=== PATIENT | male | born 1965 | race Caucasian/White ===

== ENCOUNTER 2016-09-08 14:58 | Emergency (ER) | payer MEDICARE ==
[2016-09-08] MEDS ORDERED: Sodium Chloride 0.9% 1000 ML 1,000 ML ONE ×3 (15:02→17:16)
[2016-09-08 15:05] LABS: A-aADO2 435; ALLEN TEST OK? YES; ARTERIAL BLD GAS O2 SATURATION 97.4 % (95-100); ARTERIAL BLOOD GAS BASE EXCESS -5.7 (-2.0-2.0); ARTERIAL BLOOD GAS FIO2 100 %; ARTERIAL BLOOD GAS PO2 233 mmHg (75-100); ARTERIAL BLOOD GAS pH 7.34 (7.35-7.45)
[2016-09-08] MEDS ORDERED: NARCAN 1 MG/ML ONE ×2 (15:07→15:10)
[2016-09-08] MEDS ORDERED: Sodium Chloride 0.9% 1000 ML 1,000 ML IV STA (15:09)
[2016-09-08] MEDS ORDERED: NARCAN 1 MG/ML IV ONE (15:09)
[2016-09-08 15:17] LABS: BASOPHIL % 0.2 % (0.0-0.4); Eosinophil % 0.5 % (0.00-5.0); Granulocytes % 83.3 % (36.0-66.0); Lymphocytes % 7.5 % (24.0-44.0); Mean Cell Volume 86.1 fl (78-100); Mean Corpuscular Hemoglobin 29.1 pg (26-32); Mean Platelet Volume 9.8 fl (6-9.5); Monocytes % 8.5 % (0.0-12.0); Platelet Count 215 K/mm3 (150-450); Red Cell Distribution Width 13.7 % (11.5-14.0); White Blood Count 15.8 K/mm3 (4.0-10.5)
[2016-09-08] MEDS ORDERED: Amidate 20 MG/10 ML IV ONE ×2 (15:18→16:00)
[2016-09-08] MEDS ORDERED: Zemuron 100 MG/10 ML IV ONE (15:18)
[2016-09-08] MEDS ORDERED: SUBLIMAZE 100 MCG/2 ML ONE ×2 (15:26→19:33)
[2016-09-08] MEDS ORDERED: SODIUM CHLORIDE IV PRN (15:26)
[2016-09-08] MEDS ORDERED: MIDAZOLAM IV PRN (15:26)
--- NOTE | 2016-09-08 15:42 | XRAY ---
Indication: Unresponsive. Comparison: May 30, 2012. Portable chest demonstrates intubation with endotracheal tube tip 1 cm above the risa. Also new NG tube traverses the chest with the tip presumed in the stomach. Lungs are underinflated and clear. Heart is not enlarged. Bony thorax intact. Impression: Nonacute underinflated chest with endotracheal tube and NG tube in situ.
[2016-09-08 15:43] LABS: Collection Type CATH
[2016-09-08 15:44] LABS: Bacteria FEW /HPF (NEGATIVE); COMPLETE URINE MICROSCOPIC? YES; Epithelial Cells RARE /HPF (FEW); WBC 0-2 /HPF (0-5)
[2016-09-08 15:50] LABS: INR 1.01 (0.8-3.0); PROTIME 11.3 SECONDS (8.83-12.87)
[2016-09-08 15:51] LABS: MAGNESIUM 1.7 mg/dL (1.8-2.4)
[2016-09-08 15:52] LABS: ACETAMINOPHEN < 2.0 ug/ml (10-30)
[2016-09-08 15:53] LABS: PTT 27.8 SECONDS (24.1-36.1)
[2016-09-08 15:54] LABS: ALBUMIN 3.1 g/dL (3.4-5.0); ALKALINE PHOSPHATASE 48 U/L (46-116); ANION GAP 20.8 MEQ/L (5-15); BILIRUBIN,TOTAL 0.2 mg/dL (0.2-1.0); BLOOD UREA NITROGEN 17 mg/dL (9-20); CHLORIDE 104 mEq/L (98-107); Carbon Dioxide 20.9 mEq/L (21-32); Glucose 321 MG/DL (70-110); Potassium 4.7 mEq/L (3.5-5.1); SGOT/AST 35 U/L (15-37); SGPT/ALT 39 U/L (12-78); SODIUM 141 mEq/L (136-145); TROPONIN < 0.017 ng/ml (0.000-0.056); Total Protein 6.6 gm/dL (6.4-8.2)
[2016-09-08] MEDS ORDERED: Zemuron 100 MG/10 ML ONE (16:00)
[2016-09-08] MEDS ORDERED: VERSED 5 MG/5 ML ONE (16:00)
--- NOTE | 2016-09-08 16:53 | XRAY ---
Indication: Found unresponsive. Multiple contiguous axial images obtained through the head without contrast. Comparison: June 20, 2009. Ventriculosulcal pattern appears symmetric. No acute intracranial hemorrhage, abnormal extra-axial fluid collection, or mass effect. Fourth ventricle is midline without hydrocephalus. Martins-white matter differentiation maintained. Bony calvarium intact. There is moderate mucosal thickening of both ethmoid, both sphenoid, and both maxillary sinuses. Mastoid air cells are clear. Partially visualized NG tube. Impression: No acute intracranial abnormalities. Incidental pansinusitis. CTDI 51.07
--- NOTE | 2016-09-08 16:57 | XRAY ---
Indication: Found unresponsive. Multiple contiguous axial images obtained through the cervical spine. Sagittal and coronal reformatted images obtained. Comparison: None Axial images negative for acute fracture, suspicious bone lesions, or spinal canal stenosis. Minimal C5-C7 degenerative endplate spurring and mild left C5-C6 degenerative facet arthropathy. Sagittal and coronal reformatted images demonstrates normal alignment with disc spaces preserved. No acute compression fracture, subluxation, or jumped facet. Normal-appearing craniocervical junction. Visualized noncontrasted soft tissues demonstrates partially visualized endotracheal tube and NG tube. CT head reported separately. Impression: 1. Negative for acute fracture/subluxation. 2. Minimal C5-C7 degenerative changes. CTDI 116.40
--- NOTE | 2016-09-08 17:05 | ERPHSYRPT ---
- History of Present Illness Time Seen by Provider: 09/08/16 15:07 Source: family (by phone), EMS (given narcan [employer] with no response) Patient Subjective Stated Complaint: pt brought in my amb for being unresponsive at home today, pt was drank unknown amt of alc last night, 2mg narcon given with no change, has bilat iv's, nrb 100% Triage Nursing Assessment: see reassessment Physician History: CC: unresponsive Hx: 51 y/o patient of Dr Tello. EMS was called for unresponsive patient. Reported to have picked up liquor yesterday. Patient has hx of hep C, DM, and mental illness with prior overdose in the past. Family reports tomorrow is the anniversary of his sister's . EMS gave Oxygen, IVF, and Narcan with no change in condition. No hx available from patient. Timing/Duration: today Allergies/Adverse Reactions: UNOBTAINABLE Allergy (Unverified 09/08/16 15:14) Home Medications: Duloxetine HCl 60 mg DAILY 09/08/16 [History] Esomeprazole Magnesium [Nexium] 40 mg DAILY 09/08/16 [History] Fenofibrate 160 mg DAILY 09/08/16 [History] Fluticasone/Salmeterol [Advair 500-50 Diskus] 1 ea DAILY 09/08/16 [History] Glipizide 10 mg [Glucotrol 10 MG] 10 mg BID 09/08/16 [History] Insulin Aspart [NovoLOG Insulin] 10 unit TID 09/08/16 [History] Lisinopril [Zestril] 2.5 mg DAILY 09/08/16 [History] Metformin HCl 1,000 mg DAILY 09/08/16 [History] Pravastatin Sodium 40 mg DAILY 09/08/16 [History] Quetiapine Fumarate [Seroquel] 300 mg DAILY 09/08/16 [History] Sitagliptin Phosphate [Januvia] 100 mg DAILY 09/08/16 [History] - Review of Systems All Other Systems: Unable due to condition - Past Medical History Pertinent Past Medical History: Yes Other Medical History: Depression. Overdose. Hep C with cirrhosis. Diabetes - Social History Smoking Status: Current every day smoker Exposure to second hand smoke: Yes Patient Lives Alone: Yes - Nursing Vital Signs Nursing Vital Signs: Initial Vital Signs Temperature 97.3 F Temperature Source Axillary Pulse Rate [Bilateral Radial] 68 Pulse Rate 116 Respiratory Rate 12 Blood Pressure [Right Arm] 156/97 Pain Intensity 0 - Physical Exam General Appearance: other (Pt arrived mumbling words but not following commands and no purposeful movements) Eye Exam: other (pupils midsized and equal) Ears, Nose, Throat Exam: dry mucous membranes (copious oral secretions) Neck Exam: normal inspection Respiratory Exam: rhonchi Cardiovascular Exam: regular rate/rhythm, tachycardia Gastrointestinal/Abdomen Exam: soft, No tenderness, No distention Male Genitalia Exam: normal genitalia Extremity Exam: normal inspection Neurologic Exam: other (unresponsive, no purposeful movements, flails extremities) Skin Exam: warm, dry SpO2 Interpretation: normal SpO2: 100 Oxygen Delivery: Ventilator Procedures - Intubation Intubation Indications: airway protection Intubation Method: orotracheal, glidescope Tube Size (cm): 7.5 Medications: Etomidate, Rocuronium Endotracheal Tube Confirmation: bilateral breath sounds, positive end tidal CO2 , good rise & fall of chest, stable or inc of O2 sat Intubation Complications: no complications Performed By: ED Physician Post Intubation Xray: Yes - Course Nursing assessment & vital signs reviewed: Yes EKG Interpreted by Me: RATE (112), Sinus Tach, NORMAL INTERVALS (QTc 476), Non- specific ST Changes (artifact obscures) Ordered Tests: Active Orders 24 hr Category Date Time Status CO2 Monitoring STAT Care 09/08/16 15:[address] Stenographer STAT Care 09/08/16 15:50 Active Catheter-[place] Go STAT Care 09/08/16 15:08 Active EKG-ER Only STAT Care 09/08/16 15:09 Active Gastric Tube Insertion STAT Care 09/08/16 15:09 Active IV Insertion STAT Care 09/08/16 15:09 Active IV Insertion-2nd Peripheral STAT Care 09/08/16 15:32 Active Oxygen-ED Only NON-REBREATHER 100% Care 09/08/16 15:09 Active CERVICAL SPINE WO CONTRAST [CT] Stat Exams 09/08/16 15:10 Completed CHEST 1 VIEW (PORTABLE) Stat Exams 09/08/16 15:04 Completed HEAD WITHOUT CONTRAST [CT] Stat Exams 09/08/16 15:10 Completed ABG [ARTERIAL BLOOD GASES] Stat Lab 09/08/16 15:00 Completed ACETAMINOPHEN Stat Lab 09/08/16 15:02 Completed BLOOD CULTURE Stat Lab 09/08/16 15:18 Received CBC W DIFF Stat Lab 09/08/16 15:02 Completed CK-Creatinine Phosphokinase Stat Lab 09/08/16 15:02 Completed CMP Stat Lab 09/08/16 15:02 Completed CULTURE,URINE Stat Lab 09/08/16 15:02 Received Ethyl Alcohol,Urine Stat Lab 09/08/16 15:02 Completed Glucose,Critical Care Urgent Lab 09/08/16 15:08 Completed Lactic Acid Urgent Lab 09/08/16 15:08 Completed Lactic Acid Urgent Lab 09/08/16 17:15 Completed MAGNESIUM Stat Lab 09/08/16 15:02 Completed PROTIME WITH INR Stat Lab 09/08/16 15:02 Completed PTT Stat Lab 09/08/16 15:02 Completed TROPONIN Stat Lab 09/08/16 15:02 Completed UA W/ MICROSCOPIC Stat Lab 09/08/16 15:02 Completed Urine Triage Profile Stat Lab 09/08/16 15:22 Completed Medication Summary Generic Name Dose Route Start Last Admin Trade Name Freq PRN Reason Stop Dose Admin Midazolam HCl 250 mls @ 10 mls/hr 09/08/16 15:26 09/08/16 15:41 Versed 50 Mg/250 Ml Nacl Drip IV 10/08/16 15:25 10 mls/hr .Q24H PRN Administration sedation Protocol Piperacillin Sod/Tazobactam Sod 100 mls @ 100 mls/hr 09/08/16 17:08 09/08/16 17:21 Zosyn 3.375gm/100 Ml D5w IV 09/08/16 18:07 100 mls/hr STAT ONE Administration Discontinued Medications Generic Name Dose Route Start Last Admin Trade Name Freq PRN Reason Stop Dose Admin Etomidate 20 mg 09/08/16 16:00 Amidate 20 Mg/10 Ml IV 09/08/16 16:01 .STK-MED ONE Fentanyl Citrate Confirm 09/08/16 15:26 Sublimaze 100 Mcg/2 Ml Administered 09/08/16 15:27 Dose 100 mcg .ROUTE .STK-MED ONE Sodium Chloride Confirm 09/08/16 15:02 Sodium Chloride 0.9% 1000 Ml Administered 09/08/16 15:03 Dose 1,000 mls @ ud .ROUTE .STK-MED ONE Sodium Chloride Confirm 09/08/16 15:07 Sodium Chloride 0.9% 1000 Ml Administered 09/08/16 15:08 Dose 1,000 mls @ ud .ROUTE .STK-MED ONE Sodium Chloride 1,000 mls @ 999 mls/hr 09/08/16 15:09 09/08/16 15:41 Sodium Chloride 0.9% 1000 Ml IV 09/08/16 16:09 999 mls/hr .Q1H1M STA Administration Sodium Chloride Confirm 09/08/16 17:16 Sodium Chloride 0.9% 1000 Ml Administered 09/08/16 17:17 Dose 1,000 mls @ ud .ROUTE .STK-MED ONE Piperacillin Sod/Tazobactam Sod Confirm 09/08/16 17:16 Zosyn 3.375gm/100 Ml D5w Administered 09/08/16 17:17 Dose 100 mls @ ud IV .STK-MED ONE Midazolam HCl 5 mg 09/08/16 16:00 Versed 5 Mg/5 Ml .ROUTE 09/08/16 16:01 .STK-MED ONE Naloxone HCl Confirm 09/08/16 15:07 Narcan 1 Mg/Ml Administered 09/08/16 15:08 Dose 2 mg .ROUTE .STK-MED ONE Naloxone HCl 2 mg 09/08/16 15:09 09/08/16 15:41 Narcan 1 Mg/Ml IV 09/08/16 15:10 2 mg STAT ONE Administration Naloxone HCl Confirm 09/08/16 15:10 Narcan 1 Mg/Ml Administered 09/08/16 15:11 Dose 2 mg .ROUTE .STK-MED ONE Rocuronium [place] 100 mg 09/08/16 16:00 Zemuron 100 Mg/10 Ml .ROUTE 09/08/16 16:01 .STK-MED ONE Lab/Rad Data: Laboratory Result Diagrams 09/08/16 15:02 09/08/16 15:02 Laboratory Results 09/08/16 09/08/16 09/08/16 Range/Units 17:15 15:22 15:18 WBC (4.0-10.5) K/mm3 RBC (4.1-5.6) M/mm3 Hgb (12.5-18.0) gm/dl Hct (42-50) % MCV (78-100) fl MCH (26-32) pg MCHC (32-36) g/dl RDW (11.5-14.0) % Plt Count (150-450) K/mm3 MPV (6-9.5) fl Gran % (36.0-66.0) % Lymphocytes % (24.0-44.0) % Monocytes % (0.0-12.0) % Eosinophils % (0.00-5.0) % Basophils % (0.0-0.4) % Basophils # (0-0.4) INR (0.8-3.0) PTT (24.1-36.1) SECONDS Puncture Site pCO2 (35-45) mmHg pO2 (75-100) mmHg Base Excess (-2.0-2.0) O2 Saturation (94-100) g/dF ABG pH (7.35-7.45) ABG HCO3 (22-28) ABG O2 Sat (Measured) (95-100) % Jose Eduardo Test A-a Gradient a/A Ratio Hemoglobin Carboxyhemoglobin (0.0-6.9) % THgb Methemoglobin (1.4-1.5) % Potassium (3.5-5.1) Temperature C POC O2 Flow Rate % Sodium (136-145) mEq/L Chloride (98-107) mEq/L Carbon Dioxide (21-32) mEq/L Anion Gap (5-15) MEQ/L BUN (9-20) mg/dL Creatinine (0.55-1.30) mg/dl Estimated GFR ML/MIN Glucose (70-110) MG/DL Lactic Acid 0.8 (0.4-2.0) Calcium (8.5-10.1) mg/dL Magnesium (1.8-2.4) mg/dL Total Bilirubin (0.2-1.0) mg/dL AST (15-37) U/L ALT (12-78) U/L Alkaline Phosphatase (46-116) U/L Ammonia 15 (11-32) MMOL/l Creatine Kinase (39-308) U/L Troponin I (0.000-0.056) ng/ml Serum Total Protein (6.4-8.2) gm/dL Albumin (3.4-5.0) g/dL Ur Collection Type Urine Color (YELLOW) Urine Appearance (CLEAR) Urine pH (5-6) Ur Specific [place] (1.005-1.025) Urine Protein (Negative) Urine Glucose (UA) (NEGATIVE) mg/dL Urine Ketones (NEGATIVE) Urine Nitrite (NEGATIVE) Urine Bilirubin (NEGATIVE) Urine Urobilinogen (0-1) mg/dL Urine WBC (Auto) (NEGATIVE) Urine RBC (Auto) (0-5) Reed/ul Urine Microscopic RBC (0-2) /HPF Urine Microscopic WBC (0-5) /HPF Ur Epithelial Cells (FEW) /HPF Urine Bacteria (NEGATIVE) /HPF Urine Opiates Level NEG. (NEGATIVE) Ur Methadone NEG. (NEGATIVE) Acetaminophen (10-30) ug/ml Urine Barbiturates NEG. (NEGATIVE) Ur Phencyclidine (PCP) NEG. (NEGATIVE) Urine Amphetamine NEG. (NEGATIVE) U Benzodiazepine Level POS. (NEGATIVE) Urine Cocaine NEG. (NEGATIVE) Urine Marijuana (THC) POS. (NEGATIVE) Urine Ethyl Alcohol (0.00-20) mg/dl Specimen Received 09/08/16 09/08/16 09/08/16 Range/Units 15:08 15:02 15:02 WBC (4.0-10.5) K/mm3 RBC (4.1-5.6) M/mm3 Hgb (12.5-18.0) gm/dl Hct (42-50) % MCV (78-100) fl MCH (26-32) pg MCHC (32-36) g/dl RDW (11.5-14.0) % Plt Count (150-450) K/mm3 MPV (6-9.5) fl Gran % (36.0-66.0) % Lymphocytes % (24.0-44.0) % Monocytes % (0.0-12.0) % Eosinophils % (0.00-5.0) % Basophils % (0.0-0.4) % Basophils # (0-0.4) INR 1.01 (0.8-3.0) PTT 27.8 (24.1-36.1) SECONDS Puncture Site pCO2 (35-45) mmHg pO2 (75-100) mmHg Base Excess (-2.0-2.0) O2 Saturation (94-100) g/dF ABG pH (7.35-7.45) ABG HCO3 (22-28) ABG O2 Sat (Measured) (95-100) % Jose Eduardo Test A-a Gradient a/A Ratio Hemoglobin Carboxyhemoglobin (0.0-6.9) % THgb Methemoglobin (1.4-1.5) % Potassium (3.5-5.1) Temperature C POC O2 Flow Rate % Sodium (136-145) mEq/L Chloride (98-107) mEq/L Carbon Dioxide (21-32) mEq/L Anion Gap (5-15) MEQ/L BUN (9-20) mg/dL Creatinine (0.55-1.30) mg/dl Estimated GFR ML/MIN Glucose 195 H (70-110) MG/DL Lactic Acid 2.6 H (0.4-2.0) Calcium (8.5-10.1) mg/dL Magnesium (1.8-2.4) mg/dL Total Bilirubin (0.2-1.0) mg/dL AST (15-37) U/L ALT (12-78) U/L Alkaline Phosphatase (46-116) U/L Ammonia (11-32) MMOL/l Creatine Kinase (39-308) U/L Troponin I (0.000-0.056) ng/ml Serum Total Protein (6.4-8.2) gm/dL Albumin (3.4-5.0) g/dL Ur Collection Type Urine Color (YELLOW) Urine Appearance (CLEAR) Urine pH 5.0 (5-6) Ur Specific [place] (1.005-1.025) Urine Protein (Negative) Urine Glucose (UA) (NEGATIVE) mg/dL Urine Ketones (NEGATIVE) Urine Nitrite (NEGATIVE) Urine Bilirubin (NEGATIVE) Urine Urobilinogen (0-1) mg/dL Urine WBC (Auto) (NEGATIVE) Urine RBC (Auto) (0-5) Reed/ul Urine Microscopic RBC (0-2) /HPF Urine Microscopic WBC (0-5) /HPF Ur Epithelial Cells (FEW) /HPF Urine Bacteria (NEGATIVE) /HPF Urine Opiates Level (NEGATIVE) Ur Methadone (NEGATIVE) Acetaminophen (10-30) ug/ml Urine Barbiturates (NEGATIVE) Ur Phencyclidine (PCP) (NEGATIVE) Urine Amphetamine (NEGATIVE) U Benzodiazepine Level (NEGATIVE) Urine Cocaine (NEGATIVE) Urine Marijuana (THC) (NEGATIVE) Urine Ethyl Alcohol 77 H (0.00-20) mg/dl Specimen Received 09/08/16 09/08/16 09/08/16 Range/Units 15:02 15:02 15:02 WBC (4.0-10.5) K/mm3 RBC (4.1-5.6) M/mm3 Hgb (12.5-18.0) gm/dl Hct (42-50) % MCV (78-100) fl MCH (26-32) pg MCHC (32-36) g/dl RDW (11.5-14.0) % Plt Count (150-450) K/mm3 MPV (6-9.5) fl Gran % (36.0-66.0) % Lymphocytes % (24.0-44.0) % Monocytes % (0.0-12.0) % Eosinophils % (0.00-5.0) % Basophils % (0.0-0.4) % Basophils # (0-0.4) INR (0.8-3.0) PTT (24.1-36.1) SECONDS Puncture Site pCO2 (35-45) mmHg pO2 (75-100) mmHg Base Excess (-2.0-2.0) O2 Saturation (94-100) g/dF ABG pH (7.35-7.45) ABG HCO3 (22-28) ABG O2 Sat (Measured) (95-100) % Jose Eduardo Test A-a Gradient a/A Ratio Hemoglobin Carboxyhemoglobin (0.0-6.9) % THgb Methemoglobin (1.4-1.5) % Potassium 4.7 (3.5-5.1) Temperature C POC O2 Flow Rate % Sodium 141 (136-145) mEq/L Chloride 104 (98-107) mEq/L Carbon Dioxide 20.9 L (21-32) mEq/L Anion Gap 20.8 H (5-15) MEQ/L BUN 17 (9-20) mg/dL Creatinine 1.18 (0.55-1.30) mg/dl Estimated GFR > 60 ML/MIN Glucose 321 H (70-110) MG/DL Lactic Acid (0.4-2.0) Calcium 7.9 L (8.5-10.1) mg/dL Magnesium 1.7 L (1.8-2.4) mg/dL Total Bilirubin 0.2 (0.2-1.0) mg/dL AST 35 (15-37) U/L ALT 39 (12-78) U/L Alkaline Phosphatase 48 (46-116) U/L Ammonia (11-32) MMOL/l Creatine Kinase 90 (39-308) U/L Troponin I < 0.017 (0.000-0.056) ng/ml Serum Total Protein 6.6 (6.4-8.2) gm/dL Albumin 3.1 L (3.4-5.0) g/dL Ur Collection Type CATH Urine Color YELLOW (YELLOW) Urine Appearance CLEAR (CLEAR) Urine pH 5.0 (5-6) Ur Specific [place] 1.015 (1.005-1.025) Urine Protein 30 (Negative) Urine Glucose (UA) 250 (NEGATIVE) mg/dL Urine Ketones TRACE (NEGATIVE) Urine Nitrite NEGATIVE (NEGATIVE) Urine Bilirubin NEGATIVE (NEGATIVE) Urine Urobilinogen 0.2 (0-1) mg/dL Urine WBC (Auto) NEGATIVE (NEGATIVE) Urine RBC (Auto) TRACE HEMOLYZED (0-5) Reed/ul Urine Microscopic RBC 0-2 (0-2) /HPF Urine Microscopic WBC 0-2 (0-5) /HPF Ur Epithelial Cells RARE (FEW) /HPF Urine Bacteria FEW (NEGATIVE) /HPF Urine Opiates Level (NEGATIVE) Ur Methadone (NEGATIVE) Acetaminophen < 2.0 L (10-30) ug/ml Urine Barbiturates (NEGATIVE) Ur Phencyclidine (PCP) (NEGATIVE) Urine Amphetamine (NEGATIVE) U Benzodiazepine Level (NEGATIVE) Urine Cocaine (NEGATIVE) Urine Marijuana (THC) (NEGATIVE) Urine Ethyl Alcohol (0.00-20) mg/dl Specimen Received 09/08/16 1506 09/08/16 09/08/16 Range/Units 15:02 15:00 WBC 15.8 H (4.0-10.5) K/mm3 RBC 4.40 (4.1-5.6) M/mm3 Hgb 12.8 (12.5-18.0) gm/dl Hct 37.9 L (42-50) % MCV 86.1 (78-100) fl MCH 29.1 (26-32) pg MCHC 33.8 (32-36) g/dl RDW 13.7 (11.5-14.0) % Plt Count 215 (150-450) K/mm3 MPV 9.8 H (6-9.5) fl Gran % 83.3 H (36.0-66.0) % Lymphocytes % 7.5 L (24.0-44.0) % Monocytes % 8.5 (0.0-12.0) % Eosinophils % 0.5 (0.00-5.0) % Basophils % 0.2 (0.0-0.4) % Basophils # 0.03 (0-0.4) INR (0.8-3.0) PTT (24.1-36.1) SECONDS Puncture Site LEFT RADIAL pCO2 36 (35-45) mmHg pO2 233 H* (75-100) mmHg Base Excess -5.7 L (-2.0-2.0) O2 Saturation 96.1 (94-100) g/dF ABG pH 7.34 L (7.35-7.45) ABG HCO3 19.4 L (22-28) ABG O2 Sat (Measured) 97.4 (95-100) % Jose Eduardo Test YES A-a Gradient 435 a/A Ratio 0.35 Hemoglobin 12.5 Carboxyhemoglobin 0.9 (0.0-6.9) % THgb Methemoglobin 0.4 L (1.4-1.5) % Potassium 4.4 (3.5-5.1) Temperature 37.0 C POC O2 Flow Rate 100 % Sodium (136-145) mEq/L Chloride (98-107) mEq/L Carbon Dioxide (21-32) mEq/L Anion Gap (5-15) MEQ/L BUN (9-20) mg/dL Creatinine (0.55-1.30) mg/dl Estimated GFR ML/MIN Glucose (70-110) MG/DL Lactic Acid (0.4-2.0) Calcium (8.5-10.1) mg/dL Magnesium (1.8-2.4) mg/dL Total Bilirubin (0.2-1.0) mg/dL AST (15-37) U/L ALT (12-78) U/L Alkaline Phosphatase (46-116) U/L Ammonia (11-32) MMOL/l Creatine Kinase (39-308) U/L Troponin I (0.000-0.056) ng/ml Serum Total Protein (6.4-8.2) gm/dL Albumin (3.4-5.0) g/dL Ur Collection Type Urine Color (YELLOW) Urine Appearance (CLEAR) Urine pH (5-6) Ur Specific [place] (1.005-1.025) Urine Protein (Negative) Urine Glucose (UA) (NEGATIVE) mg/dL Urine Ketones (NEGATIVE) Urine Nitrite (NEGATIVE) Urine Bilirubin (NEGATIVE) Urine Urobilinogen (0-1) mg/dL Urine WBC (Auto) (NEGATIVE) Urine RBC (Auto) (0-5) Reed/ul Urine Microscopic RBC (0-2) /HPF Urine Microscopic WBC (0-5) /HPF Ur Epithelial Cells (FEW) /HPF Urine Bacteria (NEGATIVE) /HPF Urine Opiates Level (NEGATIVE) Ur Methadone (NEGATIVE) Acetaminophen (10-30) ug/ml Urine Barbiturates (NEGATIVE) Ur Phencyclidine (PCP) (NEGATIVE) Urine Amphetamine (NEGATIVE) U Benzodiazepine Level (NEGATIVE) Urine Cocaine (NEGATIVE) Urine Marijuana (THC) (NEGATIVE) Urine Ethyl Alcohol (0.00-20) mg/dl Specimen Received - Progress Progress Note: 09/08/16 17:09 [id number] CT/HEAD WITHOUT CONTRAST Indication: Found unresponsive. Multiple contiguous axial images obtained through the head without contrast. Comparison: June 20, 2009. Ventriculosulcal pattern appears symmetric. No acute intracranial hemorrhage, abnormal extra-axial fluid collection, or mass effect. Fourth ventricle is midline without hydrocephalus. Martins-white matter differentiation maintained. Bony calvarium intact. There is moderate mucosal thickening of both ethmoid, both sphenoid, and both maxillary sinuses. Mastoid air cells are clear. Partially visualized NG tube. Impression: No acute intracranial abnormalities. Incidental pansinusitis. CTDI 51.07 Reported by: CARMEN CRUZ DO Signed by: CARMEN CRUZ DO Signed date/ time: 09/08/16 1657 [id number] CT/CERVICAL SPINE WO CONTRAST Indication: Found unresponsive. Multiple contiguous axial images obtained through the cervical spine. Sagittal and coronal reformatted images obtained. Comparison: None Axial images negative for acute fracture, suspicious bone lesions, or spinal canal stenosis. Minimal C5-C7 degenerative endplate spurring and mild left C5-C6 degenerative facet arthropathy. Sagittal and coronal reformatted images demonstrates normal alignment with disc spaces preserved. No acute compression fracture, subluxation, or jumped facet. Normal-appearing craniocervical junction. Visualized noncontrasted soft tissues demonstrates partially visualized endotracheal tube and NG tube. CT head reported separately. Impression: 1. Negative for acute fracture/subluxation. 2. Minimal C5-C7 degenerative changes. CTDI 116.40 Reported by: CARMEN CURZ DO Signed by: CARMEN CRUZ DO Signed date/ time: 09/08/16 1657 [id number] RAD/CHEST 1 VIEW (PORTABLE) Indication: Unresponsive. Comparison: May 30, 2012. Portable chest demonstrates intubation with endotracheal tube tip 1 cm above the risa. Also new NG tube traverses the chest with the tip presumed in the stomach. Lungs are underinflated and clear. Heart is not enlarged. Bony thorax intact. Impression: Nonacute underinflated chest with endotracheal tube and NG tube in situ. Reported by: CARMEN CRUZ DO Signed by: CARMEN CRUZ DO Signed date/ time: 09/08/16 1542 Patient on versed gtt on vent. Cultures sent. Will cover for sepsis. Spoke to Dr Burnett senior relationship manager who advised pt needs transfer to higher level of care with neuro and pulmonary. Will page [facility] one call for transfer. This is likely overdose. 09/08/16 18:[address] Ivy Aguilar at [facility] who accepts transfer to [facility] ICU. Pt covered for sepsis although has no focal source of infection identified. - Departure Time of Disposition: 18:03 Departure Disposition: Transfer ([facility]) Clinical Impression: Altered mental status, Possible overdose Condition: Serious Critical Care Time: Yes Critical Care Time(excluding separately billable procedures): 30-74 minutes
[2016-09-08 17:06] LABS: Lactic Acid 2.6 (0.4-2.0)
[2016-09-08] MEDS ORDERED: Zosyn 3.375GM/100 Ml D5W 100 ML IV ONE ×2 (17:08→17:16)
[2016-09-08] MEDS ORDERED: SUBLIMAZE 100 MCG/2 ML IV ONE (19:32)
[2016-09-08 20:34] VITALS: O2SAT 100
[2016-09-08 20:40] VITALS: BP 134/94; PULSE 104
== END 2016-09-08 19:50 | disposition short-term general hospital (02) ==
LOC: ED 14:58
DX: R41.82 Altered mental status, unspecified (principal); F32.9 Major depressive disorder, single episode, unspecified; B19.20 Unspecified viral hepatitis C without hepatic coma; K74.69 Other cirrhosis of liver; E11.9 Type 2 diabetes mellitus without complications
CPT/HCPCS: 93041; 96374; 96365; 96366; 99285; 36000; 51702; 94770 ×2; 99292; 99291; 82962; 96360; 96361; 96376; 93005; 87040; 81000; 85610; 85730; 36415; 82550; 83735; 82140; 80307; 80320; 83986; 85025; 80053; 84484; 87086; 71010; 70450; 72125; 94002; 31500; 82803; 82375; 36600; 82947; 94799; 83605; G0481; J2250; J2310; J2543; J3010

== ENCOUNTER 2018-02-22 12:40 | Emergency (ER) | payer MEDICARE ==
[2018-02-22] MEDS ORDERED: Sodium Chloride 0.9% 1000 ML 1,000 ML IV STA (13:18)
--- NOTE | 2018-02-22 13:28 | ERPHSYRPT ---
- History of Present Illness Time Seen by Provider: 02/22/18 13:10 Source: patient Exam Limitations: no limitations Patient Subjective Stated Complaint: pt here for pain and numbness to left side neck that radiates to left hand,started this morning, no injury Triage Nursing Assessment: pt alert, resp easy,skin w/d/p. walked in without difficulty, Physician History: This is a 53-year-old white male with history of diabetes type 2, hyperlipidemia , high blood pressure, hepatitis with cirrhosis, high blood pressure, schizophrenia He arrives with complaint of pain in his left shoulder worse with movement symptoms going on for 3 days he states today he got up and he had sensation of paresthesia to the left side of his head and paresthesias along the left side of his neck paresthesias in his left hand. He states he felt somewhat dizzy "like I was drunk". He did not have any problems moving no problems speaking no problems walking. He has no chest pain no shortness of breath. Past medical history includes diabetes type 2, hyperlipidemia, high blood pressure, schizophrenia. Past surgical history includes tonsillectomy, cholecystectomy, surgery on the left knee in right knee, appendectomy. Social history positive tobacco use positive occasional marijuana use she denies illicit drug use or alcohol. Timing/Duration: other (left shoulder pain for 3 days, dizziness paresthesia left side of head ad neck and left arm since this morning.) Modifying Factors: Improves With: nothing Associated Symptoms: No nausea, No abdominal pain, No shortness of breath, No heartburn, No diaphoresis, No cough, No chills, No chest pain, No fever, No headaches, No loss of appetite, No malaise, No rash, No syncope, No seizure, No weakness Allergies/Adverse Reactions: Sulfa (Sulfonamide Antibiotics) Allergy (Verified 02/22/18 12:57) Home Medications: Duloxetine HCl 60 mg DAILY 09/08/16 [History] Esomeprazole Magnesium [Nexium] 40 mg DAILY 09/08/16 [History] Fluticasone/Salmeterol [Advair 500-50 Diskus] 1 ea BID 09/08/16 [History] Lisinopril [Zestril] 2.5 mg DAILY 09/08/16 [History] Metformin HCl 1,000 mg BID 09/08/16 [History] Quetiapine Fumarate [Seroquel] 900 mg DAILY 09/08/16 [History] Hx Influenza Vaccination/Date Given: No Hx Pneumococcal Vaccination/Date Given: No Immunizations Up to Date: Yes - Review of Systems Constitutional: No Fever, No Chills Eyes: No Symptoms Ears, Nose, & Throat: No Symptoms Respiratory: No Cough, No Dyspnea Cardiac: No Chest Pain, No Edema, No Syncope Abdominal/Gastrointestinal: No Abdominal Pain, No Nausea, No Vomiting, No Diarrhea Genitourinary Symptoms: No Dysuria Musculoskeletal: Other (left shoulder pain) Skin: No Rash Neurological: Dizziness, Parasthesia (paresthesia left side ofhead , left side of neck and left fingertips ), No Focal Weakness, No Gait Changes, No Headache, No Irritability Psychological: No Symptoms Endocrine: No Symptoms All Other Systems: Reviewed and Negative - Past Medical History Pertinent Past Medical History: Yes Cardiac History: High Cholesterol, Hypertension Endocrine Medical History: Diabetes Type II Psycho-Social History: Other Other Medical History: schizo - Past Surgical History Past Surgical History: Yes Gastrointestinal: Appendectomy, Cholecystectomy, Hernia Repair Musculoskeletal: Orthopedic Surgery Other Surgical History: left knee, right knee - Social History Smoking Status: Current every day smoker Exposure to second hand smoke: Yes Drug Use: marijuana Patient Lives Alone: No - Nursing Vital Signs Nursing Vital Signs: Initial Vital Signs Temperature 97.8 F 02/22/18 12:51 Pulse Rate 86 02/22/18 12:51 Respiratory Rate 18 02/22/18 12:51 Blood Pressure 163/107 02/22/18 12:51 O2 Sat by Pulse Oximetry 98 02/22/18 12:51 Pain Scale Pain Intensity 0 - Physical Exam General Appearance: no apparent distress, alert Eye Exam: PERRL/EOMI, eyes nml inspection Ears, Nose, Throat Exam: normal ENT inspection, TMs normal, pharynx normal, moist mucous membranes Neck Exam: normal inspection, non-tender, supple, full range of motion Respiratory Exam: normal breath sounds, lungs clear, No respiratory distress Cardiovascular Exam: regular rate/rhythm, normal heart sounds, normal peripheral pulses Gastrointestinal/Abdomen Exam: soft, normal bowel sounds, No tenderness, No mass Back Exam: normal inspection, normal range of motion, No CVA tenderness, No vertebral tenderness Extremity Exam: normal range of motion, pelvis stable, other (Left shoulder positive mild crepitus with movement, tenderness left shoulder with movement) Neurologic Exam: alert, oriented x 3, cooperative, other (patient alert, oriented 3, cranial nerves II thXII intact, svp group director equal and symmetrical5/5. Normal finger to nose, no pronator drift, speech normal, no facial droop, no tongue deviation, GCS equals 15, sensation intact to all extremities, full range of motion all extremities.) Skin Exam: normal color, warm, dry, No rash Lymphatic Exam: No adenopathy SpO2 Interpretation: normal (98%) Oxygen Delivery: Room Air - Course Nursing assessment & vital signs reviewed: Yes EKG Interpreted by Me: RATE (87 bpm), Sinus Rhythm, NORMAL AXIS, Other (EKG sinus rhythm 87 bpm normal axis no acute ST or T wave changes, normal EKG) - Radiology Exams Left Shoulder X-ray Interpretation: Discussed w/ radiologist (x-ray left shoulder: No bony, articular, orsoft tissue abnormalities noted) - CT Exams Head CT Interpretation: Discussed w/radiologist (CT of the head without contrast: 1. Negative CT of the without contrast exam. 2. Incidental paranasal sinus disease.) Ordered Tests: Active Orders 24 hr Category Date Time Status Accucheck STAT Care 02/22/18 13:18 Active Senior Technical Business Analyst STAT Care 02/22/18 13:19 Active EKG-ER Only STAT Care 02/22/18 13:18 Active IV Insertion STAT Care 02/22/18 13:18 Active Orthostatic Vital Signs STAT Care 02/22/18 13:21 Active HEAD WITHOUT CONTRAST [CT] Stat Exams 02/22/18 13:19 Completed SHOULDER Stat Exams 02/22/18 13:21 Completed CBC W DIFF Stat Lab 02/22/18 13:45 Completed CMP Stat Lab 02/22/18 13:45 Completed Medication Summary Discontinued Medications Generic Name Dose Route Start Last Admin Trade Name Freq PRN Reason Stop Dose Admin Aspirin 162 mg 02/22/18 14:36 02/22/18 14:45 Baby Aspirin 81 Mg Chew PO 02/22/18 14:37 162 mg STAT ONE Administration Aspirin Confirm 02/22/18 14:44 Baby Aspirin 81 Mg Chew Administered 02/22/18 14:45 Dose 162 mg .ROUTE .STK-MED ONE Sodium Chloride 1,000 mls @ 999 mls/hr 02/22/18 13:18 02/22/18 14:25 Sodium Chloride 0.9% 1000 Ml IV 02/22/18 14:18 999 mls/hr .Q1H1M STA Administration Sodium Chloride Confirm 02/22/18 14:02 Sodium Chloride 0.9% 1000 Ml Administered 02/22/18 14:03 Dose 1,000 mls @ ud .ROUTE .K-MED ONE Lab/Rad Data: Laboratory Result Diagrams 02/22/18 13:45 02/22/18 13:45 Laboratory Results 02/22/18 02/22/18 Range/Units 13:45 13:45 WBC 10.2 (4.0-10.5) K/mm3 RBC 4.16 (4.1-5.6) M/mm3 Hgb 12.6 (12.5-18.0) gm/dl Hct 37.2 L (42-50) % MCV 89.4 (78-100) fl MCH 30.3 (26-32) pg MCHC 33.9 (32-36) g/dl RDW 13.9 (11.5-14.0) % Plt Count 256 (150-450) K/mm3 MPV 9.7 H (6-9.5) fl Gran % 56.5 (36.0-66.0) % Eos # (Auto) 0.41 (0-0.5) Absolute Lymphs (auto) 2.98 (1.0-4.6) Absolute Monos (auto) 0.97 (0.0-1.3) Lymphocytes % 29.4 (24.0-44.0) % Monocytes % 9.6 (0.0-12.0) % Eosinophils % 4.0 (0.00-5.0) % Basophils % 0.5 (0.0-0.4) % Absolute Granulocytes 5.74 (1.4-6.9) Basophils # 0.05 (0-0.4) Sodium 139 (137-145) mmol/L Potassium 3.8 (3.5-5.1) mmol/L Chloride 108 H (98-107) mmol/L Carbon Dioxide 26 (22-30) mmol/L Anion Gap 9.4 (5-15) MEQ/L BUN 13 (9-20) mg/dL Creatinine 0.92 (0.66-1.25) mg/dL Estimated GFR > 60.0 ML/MIN Glucose 76 (74-106) mg/dL Calcium 8.4 (8.4-10.2) mg/dL Total Bilirubin 0.20 (0.2-1.3) mg/dL AST 18 (17-59) U/L ALT 14 (0-50) U/L Alkaline Phosphatase 91 (38-126) U/L Serum Total Protein 6.2 L (6.3-8.2) g/dL Albumin 3.3 L (3.5-5.0) g/dL - Progress Progress: improved Progress Note: 02/22/18 13:28 This is a 53-year-old white male with history of diabetes type 2, hyperlipidemia , high blood pressure, schizophrenia. He has been having pain in his left shoulder with movement symptoms going on for 3 days this is located in the superior left shoulder he has positive palpable crepitus in the left shoulder with movement and has reproducible pain in the left shoulder with movement. He states today he noticed paresthesias to the left side of his head left side of his neck and left fingertips. He has no sensory deficits no speech deficits musculoskeletal strength is intact 5 over 5. Essentially a normal neurological examination. He does state that earlier today he felt dizzy when he stood up. I've ordered an x-ray of his left shoulder. Also because of his other complaints of dizziness and paresthesias to the left side of his head and neck as well as fingertips Will go ahead and obtain CT of his head CBC CMP EKG. Will provide the patient with IV fluids. 02/22/18 14:37 The patient's EKG, head CT, x-ray left shoulder all normal labs essentially normal. Patient with normal neurologic examination. Patient with bursitis of the left shoulder on clinical examination. Patient given aspirin 162 mg orally. Patient advised to take Advil every 6 hours as needed for pain. Patient will need to follow-up with his family doctor. Patient receiving 1 L of normal saline , orthostatic vital signs have been ordered. Anticipate discharge with follow-up with patient's family doctor if stable. - Departure Time of Disposition: 15:02 Departure Disposition: Home Clinical Impression: Bursitis of left shoulder, Dizziness, Facial paresthesia, Paresthesias in left hand Left shoulder pain Qualifiers: Chronicity: acute Qualified Code(s): M25.512 - Pain in left shoulder Condition: Fair Critical Care Time: No Referrals: SWAPNA REYES [Primary Care Provider] - Additional Instructions: Return home. Advil every 6 hours as needed for pain. Cold packs left shoulder 24-48 hours. Follow-up with your family doctor call and arrange an appointment. Return for acute distress or for severe Symptoms.
[2018-02-22] MEDS ORDERED: Sodium Chloride 0.9% 1000 ML 1,000 ML ONE (14:02)
[2018-02-22 14:03] LABS: BASOPHIL % 0.5 % (0.0-0.4); Basophil (Absolute #) 0.05 (0-0.4); Eosinophil (Absolute #) 0.41 (0-0.5); Granulocyte Absolute (ANC) 5.74 (1.4-6.9); Granulocytes % 56.5 % (36.0-66.0); Hematocrit 37.2 % (42-50); Hemoglobin 12.6 gm/dl (12.5-18.0); Lymphocyte (Absolute #) 2.98 (1.0-4.6); Lymphocytes % 29.4 % (24.0-44.0); Mean Cell Volume 89.4 fl (78-100); Mean Corpuscular Hemoglobin 30.3 pg (26-32); Mean Corpuscular Hgb Concent. 33.9 g/dl (32-36); Mean Platelet Volume 9.7 fl (6-9.5); Monocyte (Absolute #) 0.97 (0.0-1.3); Monocytes % 9.6 % (0.0-12.0); Platelet Count 256 K/mm3 (150-450); Red Blood Count 4.16 M/mm3 (4.1-5.6); Red Cell Distribution Width 13.9 % (11.5-14.0); White Blood Count 10.2 K/mm3 (4.0-10.5)
--- NOTE | 2018-02-22 14:16 | XRAY ---
Indication: Left shoulder pain. Comparison: None 3 views of the left shoulder obtained. No bony, articular, or soft tissue abnormalities.
--- NOTE | 2018-02-22 14:18 | XRAY ---
Indication: Dizziness, numbness, and posterior tingling. Multiple contiguous axial images obtained through the head without contrast. Comparison: September 08, 2016. Again normal appearing brain parenchyma, ventricles, and bony calvarium. There is now near-complete opacification of the right maxillary sinus with mild mucosal thickening of both ethmoid and right sphenoid sinuses. Mastoid air cells are clear. Impression: 1. Negative CT head without contrast exam. 2. Again incidental paranasal sinus disease. CTDI 67.22
[2018-02-22 14:27] LABS: ALBUMIN 3.3 g/dL (3.5-5.0); ALKALINE PHOSPHATASE 91 U/L (38-126); ANION GAP 9.4 MEQ/L (5-15); BLOOD UREA NITROGEN 13 mg/dL (9-20); CHLORIDE 108 mmol/L (98-107); Calcium 8.4 mg/dL (8.4-10.2); Carbon Dioxide 26 mmol/L (22-30); Creatinine 1 0.92 mg/dL (0.66-1.25); Glucose 76 mg/dL (74-106); Potassium 3.8 mmol/L (3.5-5.1); SGOT/AST 18 U/L (17-59); SGPT/ALT 14 U/L (0-50); SODIUM 139 mmol/L (137-145); Total Protein 6.2 g/dL (6.3-8.2)
[2018-02-22] MEDS ORDERED: BABY ASPIRIN 81 MG CHEW PO ONE (14:36)
[2018-02-22] MEDS ORDERED: BABY ASPIRIN 81 MG CHEW ONE (14:44)
[2018-02-22 14:48] VITALS: O2SAT 100
[2018-02-22 15:15] VITALS: BP 166/95; PULSE 99
== END 2018-02-22 15:16 | disposition home or self-care (01) ==
LOC: ED 12:40
DX: M75.52 Bursitis of left shoulder (principal); M25.512 Pain in left shoulder; R42 Dizziness and giddiness; R20.2 Paresthesia of skin; E11.9 Type 2 diabetes mellitus without complications; E78.5 Hyperlipidemia, unspecified; I10 Essential (primary) hypertension; F20.9 Schizophrenia, unspecified; K75.9 Inflammatory liver disease, unspecified; K74.60 Unspecified cirrhosis of liver; E78.00 Pure hypercholesterolemia, unspecified; Z72.0 Tobacco use; F12.90 Cannabis use, unspecified, uncomplicated; Z79.899 Other long term (current) drug therapy
CPT/HCPCS: 36000; 36415; 70450; 73030; 80053; 82962; 85025; 93005; 93041; 96360; 99284; A9270-GY

== ENCOUNTER 2021-01-24 02:56 | Emergency (ER) | payer MEDICARE ==
[2021-01-24 03:34] LABS: Absolute Neutrophil Ct (ANC) 7.12 (1.4-6.9); BASOPHIL % 0.3 % (0.0-0.4); Basophil (Absolute #) 0.03 (0-0.4); Eosinophil (Absolute #) 0.33 (0-0.5); Hematocrit 33.7 % (42-50); Hemoglobin 10.4 gm/dl (12.5-18.0); Lymphocyte (Absolute #) 2.54 (1.0-4.6); Lymphocytes % 22.7 % (24.0-44.0); Mean Cell Volume 95.7 fl (78-100); Mean Corpuscular Hemoglobin 29.5 pg (26-32); Mean Corpuscular Hgb Concent. 30.9 g/dl (32-36); Mean Platelet Volume 8.4 fl (7.5-11.0); Monocyte (Absolute #) 1.16 (0.0-1.3); Monocytes % 10.4 % (0.0-12.0); Neutrophil % 63.6 % (36.0-66.0); Platelet Count 276 K/mm3 (150-450); Red Blood Count 3.52 M/mm3 (4.1-5.6); Red Cell Distribution Width 15.4 % (11.5-14.0); White Blood Count 11.2 K/mm3 (4.0-10.5)
[2021-01-24 03:48] LABS: ALBUMIN 3.2 g/dL (3.5-5.0); ANION GAP 10.7 MEQ/L (5-15); BILIRUBIN,TOTAL 0.4 mg/dL (0.2-1.3); Calcium 8.5 mg/dL (8.4-10.2); Creatinine 1 4.14 mg/dL (0.66-1.25); EST GLOMERULAR FILTRATION RATE 16.1 ML/MIN; MAGNESIUM 1.9 mg/dL (1.6-2.3); Potassium 5.2 mmol/L (3.5-5.1)
[2021-01-24] MEDS ORDERED: Lasix 40 MG/4 ML IV ONE (04:12)
[2021-01-24] MEDS ORDERED: Lasix 40 MG/4 ML ONE (04:13)
--- NOTE | 2021-01-24 04:30 | ERPHSYRPT ---
- History of Present Illness Time Seen by Provider: 01/24/21 03:15 Source: patient Exam Limitations: no limitations Patient Subjective Stated Complaint: States SOB over the past several hours. Also states, "lung pain." Triage Nursing Assessment: Labored breaths noted upon arrival. SOB decreased when HOB is up and increases when lying flat. Patient is alert and oriented and answering questions appropriately. Has a permacath in his left chest/subclavian for hemodialysis. Last had dialysis on Monday and is due have dialysis again on Monday. Wheezes noted in bilateral lobes. Denies chest pain, states pain is in his "lungs not chest." 02 at 2L per N/C applied with 02 sats 93% with oxygen therapy. Physician History: Patient is a 55-year-old male who presents by EMS from [facility] with a complaint of shortness of breath. This started 3 to 4 hours prior to his arrival. He was noted by EMS to have some wheezing he was treated with a nebulizer treatment and given 125 mg of Solu-Medrol. There may have been some marginal improvement in his respiratory status at that time but he continues to be labored with his breathing and tachypneic. He has dialysis on Monday and Monday. Timing/Duration: today Activities at Onset: none Severity of Dyspnea-Max: moderate Severity of Dyspnea-Current: moderate Possible Cause: occasional episodes Modifying Factors: Improves With: albuterol nebulizer Associated Symptoms: cough, chest pain/discomfort Allergies/Adverse Reactions: Sulfa (Sulfonamide Antibiotics) Allergy (Verified 02/22/18 12:57) Home Medications: Duloxetine HCl 60 mg PO DAILY 09/08/16 [History] Esomeprazole Magnesium [Nexium] 40 mg PO DAILY 09/08/16 [History] Quetiapine Fumarate [Seroquel] 900 mg PO DAILY 09/08/16 [History] Amlodipine Besylate 5 mg [Norvasc 5 mg] 10 mg PO DAILY 01/24/21 [History] Aspirin EC 81 mg [Ecotrin 81 mg] 81 mg PO DAILY 01/24/21 [History] Atorvastatin Calcium 20 mg PO HS 01/24/21 [History] Folic Acid 400 mcg PO DAILY 01/24/21 [History] Furosemide 40 mg [Lasix 40 MG] 40 mg PO BID 01/24/21 [History] Hydralazine HCl 50 mg PO TID 01/24/21 [History] Labetalol HCl 200 mg PO TID 01/24/21 [History] Oxycodone HCl/Acetaminophen [Oxycodone-Acetaminophn 7.5-325] 1 tab PO Q6H PRN PRN 01/24/21 [History] Prednisone 10 mg [Deltasone 10 mg] 10 mg PO DAILY 01/24/21 [History] Hx Tetanus, Diphtheria Vaccination/Date Given: Yes Hx Influenza Vaccination/Date Given: No Hx Pneumococcal Vaccination/Date Given: No Immunizations Up to Date: Yes Travel Risk - International Travel Have you traveled outside of the country in past 3 weeks: No - Coronavirus Screening Are you exhibiting any of the following symptoms?: Yes Symptoms: Shortness of Breath Close contact with a COVID-19 positive Pt in past 14-21 Days: No - Vaccine Status Have you recieved a Covid-19 vaccination: Yes 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: [employer] - Vaccination Dates Date of 2cond Vaccination (if applicable): Unknown - Review of Systems Constitutional: No Fever, No Chills Eyes: No Symptoms Ears, Nose, & Throat: No Symptoms Respiratory: Cough, Dyspnea, Dyspnea on Exertion (RICHEY), Wheezing Cardiac: Chest Pain, No Edema, No Syncope Abdominal/Gastrointestinal: No Abdominal Pain, No Nausea, No Vomiting, No Diarrhea Genitourinary Symptoms: No Dysuria Musculoskeletal: No Back Pain, No Neck Pain Skin: No Rash Neurological: No Dizziness, No Focal Weakness, No Sensory Changes Psychological: No Symptoms Endocrine: No Symptoms All Other Systems: Reviewed and Negative - Past Medical History Pertinent Past Medical History: Yes Cardiac History: High Cholesterol, Hypertension Respiratory History: COPD Endocrine Medical History: Diabetes Type II Musculoskeletal History: No Pertinent History GI Medical History: GERD History: Dialysis Psycho-Social History: Other Male Reproductive Disorders: No Pertinent History Other Medical History: schizo - Past Surgical History Past Surgical History: Yes Gastrointestinal: Appendectomy, Cholecystectomy, Hernia Repair Musculoskeletal: Orthopedic Surgery Other Surgical History: left knee, right knee - Social History Smoking Status: Current every day smoker How long have you smoked: 40 years Exposure to second hand smoke: Yes Drug Use: marijuana Patient Lives Alone: Yes - Nursing Vital Signs Nursing Vital Signs: Initial Vital Signs Temperature 97.3 F 01/24/21 03:02 Pulse Rate 88 01/24/21 03:02 Respiratory Rate 26 H 01/24/21 03:02 Blood Pressure 188/98 01/24/21 03:02 O2 Sat by Pulse Oximetry 94 L 01/24/21 03:02 Pain Scale Pain Intensity 6 - Physical Exam General Appearance: moderate distress Eye Exam: PERRL/EOMI Ears, Nose, Throat Exam: hearing grossly normal, normal ENT inspection Neck Exam: normal inspection, supple Respiratory Exam: respiratory distress, diminished breath sounds, wheezing Cardiovascular/Chest Exam: normal heart sounds, tachycardia Abdominal/Gastrointestinal Exam: soft, normal bowel sounds Extremity Exam: non-tender, normal range of motion, normal inspection Peripheral Pulses Exam: carotid (R): 2+, carotid (L): 2+ Neurologic Exam: alert, oriented x 3, cooperative Skin Exam: warm, dry SpO2 Interpretation: hypoxic, O2 applied SpO2: 94 O2 Delivery: Nasal Cannula - Course Nursing assessment & vital signs reviewed: Yes EKG Interpreted by Me: RATE (88), Sinus Rhythm, NORMAL AXIS, NORMAL INTERVALS, Non-specific ST Changes - Radiology Exams Chest X-ray Interpretation: Interpreted by me, Other (VASCULAR congestion and a left pleural effusion) Ordered Tests: Active Orders 24 hr Category Date Time Status CO2 Monitoring STAT Care 01/24/21 03:25 Active CHEST 1 VIEW (PORTABLE) Stat Exams 01/24/21 03:26 Taken CBC W DIFF Stat Lab 01/24/21 03:30 Completed CMP Stat Lab 01/24/21 03:30 Received Lactic Acid Stat Lab 01/24/21 03:45 Completed MAGNESIUM Stat Lab 01/24/21 03:30 Received NT PRO BNP Stat Lab 01/24/21 03:30 Received TROPONIN Stat Lab 01/24/21 03:30 Received UA W/RFX UR CULTURE Stat Lab 01/24/21 03:26 Ordered Lab/Rad Data: Laboratory Result Diagrams 01/24/21 03:30 Laboratory Results 01/24/21 01/24/21 Range/Units 03:45 03:30 WBC 11.2 H (4.0-10.5) K/mm3 RBC 3.52 L (4.1-5.6) M/mm3 Hgb 10.4 L (12.5-18.0) gm/dl Hct 33.7 L (42-50) % MCV 95.7 (78-100) fl MCH 29.5 (26-32) pg MCHC 30.9 L (32-36) g/dl RDW 15.4 H (11.5-14.0) % Plt Count 276 (150-450) K/mm3 MPV 8.4 (7.5-11.0) fl Gran % 63.6 (36.0-66.0) % Eos # (Auto) 0.33 (0-0.5) Absolute Lymphs (auto) 2.54 (1.0-4.6) Absolute Monos (auto) 1.16 (0.0-1.3) Lymphocytes % 22.7 L (24.0-44.0) % Monocytes % 10.4 (0.0-12.0) % Eosinophils % 3.0 (0.00-5.0) % Basophils % 0.3 (0.0-0.4) % Absolute Granulocytes 7.12 H (1.4-6.9) Basophils # 0.03 (0-0.4) Lactic Acid 0.7 (0.4-2.0) - Progress Progress: unchanged Air Movement: fair Blood Culture(s) Obtained: No Antibiotics given: No - Departure Departure Disposition: Transfer (Accepted in transfer to [facility] by Dr. Chou) Clinical Impression: Fluid overload Condition: Fair Critical Care Time: No Referrals: PREMA PRINGLE NP [Primary Care Provider] - Instructions: Shortness of Breath (Dyspnea) (DC)
[2021-01-24 05:20] VITALS: BP 198/95; PULSE 89; O2SAT 97
--- NOTE | 2021-01-24 06:59 | XRAY ---
Indication: Short of breath. Comparison: September 08, 2016. Portable chest demonstrates new moderate left/tiny right effusions and diffuse pulmonary edema partially obscuring cardiac silhouette. Heart not grossly enlarged with new left dialysis catheter. Bony thorax intact. Impression: New pulmonary edema with bilateral effusions but no cardiomegaly. Rule out noncardiogenic causes.
== END 2021-01-24 05:14 | disposition short-term general hospital (02) ==
LOC: ED 02:56
DX: E87.70 Fluid overload, unspecified (principal); I10 Essential (primary) hypertension
CPT/HCPCS: 36415; 71045; 80053; 83605; 83735; 83880; 84484; 85025; 96374; 99284; J1940

== ENCOUNTER 2021-02-22 02:36 | Emergency (ER) | payer MEDICARE ==
[2021-02-22] MEDS ORDERED: DUONEB 0.5-3 MG/3 ml Neb IH ONE ×3 (02:43→05:57)
[2021-02-22] MEDS ORDERED: solu-MEDROL 125 MG, Sterile H2O 10 ml 2 ML IV ONE ×2 (02:43)
--- NOTE | 2021-02-22 02:43 | ERPHSYRPT ---
- History of Present Illness Time Seen by Provider: 02/22/21 02:39 Source: patient, EMS Exam Limitations: no limitations Physician History: pt has 4 hour hx of shortness of breath and prior Hx of CHF and COPD and smoker. has cough No CP or fever reported. No abd pain chest with fine rales. Timing/Duration: today Severity of Dyspnea-Max: moderate Severity of Dyspnea-Current: moderate Possible Cause: frequent episodes, chronic episodes Modifying Factors: Improves With: nothing Associated Symptoms: cough Allergies/Adverse Reactions: Sulfa (Sulfonamide Antibiotics) Allergy (Verified 02/22/21 02:53) Home Medications: Duloxetine HCl 60 mg PO BID 09/08/16 [History] Esomeprazole Magnesium [Nexium] 40 mg PO DAILY 09/08/16 [History] Quetiapine Fumarate [Seroquel] 900 mg PO HS 09/08/16 [History] Amlodipine Besylate 5 mg [Norvasc 5 mg] 10 mg PO DAILY 01/24/21 [History] Aspirin EC 81 mg [Ecotrin 81 mg] 81 mg PO DAILY 01/24/21 [History] Atorvastatin Calcium 20 mg PO HS 01/24/21 [History] Folic Acid 400 mcg PO DAILY 01/24/21 [History] Furosemide 40 mg [Lasix 40 MG] 40 mg PO BID 01/24/21 [History] Hydralazine HCl 50 mg PO TID 01/24/21 [History] Labetalol HCl 200 mg PO TID 01/24/21 [History] Oxycodone HCl/Acetaminophen [Oxycodone-Acetaminophn 7.5-325] 1 tab PO Q6H PRN PRN 01/24/21 [History] Albuterol Sulfate [Albuterol Sulfate Hfa] 2 inh IH Q4-6HPRN PRN 02/22/21 [History] Fluticasone/Salmeterol [Advair 250-50 Diskus] 1 each IH BID 02/22/21 [History] Levalbuterol Tartrate [Levalbuterol Tartrate Hfa] 15 gm IH Q6H PRN PRN 02/22/21 [History] Hx Tetanus, Diphtheria Vaccination/Date Given: Yes Hx Influenza Vaccination/Date Given: No Hx Pneumococcal Vaccination/Date Given: No Travel Risk - Vaccine Status Have you recieved a Covid-19 vaccination: Yes 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: [employer] - Vaccination Dates Date of 2cond Vaccination (if applicable): Unknown - Review of Systems Constitutional: No Fever, No Chills Eyes: No Symptoms Ears, Nose, & Throat: No Symptoms Respiratory: Cough, Dyspnea Cardiac: No Chest Pain, No Edema, No Syncope Abdominal/Gastrointestinal: No Abdominal Pain, No Nausea, No Vomiting, No Diarrhea Genitourinary Symptoms: No Dysuria Musculoskeletal: No Back Pain, No Neck Pain Skin: No Rash Neurological: No Dizziness, No Focal Weakness, No Sensory Changes Psychological: No Symptoms Endocrine: No Symptoms Hematologic/Lymphatic: No Symptoms Immunological/Allergic: No Symptoms All Other Systems: Reviewed and Negative - Past Medical History Pertinent Past Medical History: Yes Cardiac History: High Cholesterol, Hypertension Respiratory History: COPD Endocrine Medical History: Diabetes Type II Musculoskeletal History: No Pertinent History GI Medical History: GERD History: Dialysis Psycho-Social History: Other Male Reproductive Disorders: No Pertinent History Other Medical History: schizo - Past Surgical History Past Surgical History: Yes Gastrointestinal: Appendectomy, Cholecystectomy, Hernia Repair Musculoskeletal: Orthopedic Surgery Other Surgical History: left knee, right knee - Social History Smoking Status: Current every day smoker How long have you smoked: 40 years Exposure to second hand smoke: Yes Drug Use: marijuana Patient Lives Alone: Yes - Nursing Vital Signs Nursing Vital Signs: Initial Vital Signs Temperature 98.0 F 02/22/21 02:38 Pulse Rate 79 02/22/21 02:38 Respiratory Rate 22 02/22/21 02:38 Blood Pressure 140/82 02/22/21 02:38 O2 Sat by Pulse Oximetry 96 02/22/21 02:38 Pain Scale Pain Intensity 0 - Physical Exam General Appearance: no apparent distress, alert Eye Exam: PERRL/EOMI Neck Exam: normal inspection, supple Respiratory Exam: airway intact, crackles/rales Cardiovascular/Chest Exam: normal heart sounds, regular rate/rhythm Abdominal/Gastrointestinal Exam: soft, No tenderness, No distention, No mass Rectal Exam: deferred Extremity Exam: non-tender, normal range of motion, normal inspection, no calf tenderness, no pedal edema Peripheral Pulses Exam: carotid (R): 2+, carotid (L): 2+, femoral (R): 2+, femoral (L): 2+, dorsalis-pedis (R): 2+, dorsalis-pedis (L): 2+ Neurologic Exam: alert, oriented x 3, cooperative, angiography technologist II-XII nml as tested, sensation nml, No motor deficits Skin Exam: normal color, warm, No dry SpO2 Interpretation: borderline oxygenation SpO2: 92 O2 Delivery: Room Air - Course Nursing assessment & vital signs reviewed: Yes EKG Interpreted by Me: Sinus Rhythm, NORMAL AXIS, prolonged QT interval, Non- specific ST Changes - Radiology Exams Chest X-ray Interpretation: Reviewed by me, Other (lefgt effusion and right edema sim to last month) Ordered Tests: Active Orders 24 hr Category Date Time Status Environmental Compliance Inspector STAT Care 02/22/21 02:45 Active EKG-ER Only STAT Care 02/22/21 02:43 Active Oxygen-ED Only Nasal Cannula 4 lpm Care 02/22/21 02:43 Active Pulse Oximetry (ED) STAT Care 02/22/21 02:43 Active CHEST 1 VIEW (PORTABLE) Stat Exams 02/22/21 02:44 Taken CBC W DIFF Stat Lab 02/22/21 03:04 Completed CMP Stat Lab 02/22/21 03:04 Completed D-DIMER QUANTITATIVE Stat Lab 02/22/21 03:04 Completed Lactic Acid Stat Lab 02/22/21 03:20 Completed NT PRO BNP Stat Lab 02/22/21 03:04 Completed TROPONIN Q3H Lab 02/22/21 03:04 Completed TROPONIN Q3H Lab 02/22/21 05:45 Ordered TROPONIN Q3H Lab 02/22/21 08:45 Ordered TROPONIN Q3H Lab 02/22/21 11:45 Ordered TROPONIN Q3H Lab 02/22/21 14:45 Ordered Respiratory Therapy Assessment DAILY RT 02/22/21 03:22 Active Medication Summary Generic Name Dose Route Start Last Admin Trade Name Freq PRN Reason Stop Dose Admin Furosemide 40 mg 02/22/21 05:07 Lasix 40 Mg/4 Ml IV 02/22/21 05:08 STAT ONE Sodium Chloride 1,000 mls @ 50 mls/hr 02/22/21 02:45 02/22/21 03:03 Sodium Chloride 0.9% 1000 Ml IV 03/24/21 02:44 50 mls/hr .Q20H MARII Administration Discontinued Medications Generic Name Dose Route Start Last Admin Trade Name Freq PRN Reason Stop Dose Admin Albuterol/Ipratropium 3 ml 02/22/21 02:43 02/22/21 03:01 Duoneb 0.5-3 Mg/3 Ml Neb IH 02/22/21 02:44 Not Given STAT ONE Albuterol/Ipratropium Confirm 02/22/21 03:20 Duoneb 0.5-3 Mg/3 Ml Neb Administered 02/22/21 03:21 Dose 3 ml IH .STK-MED ONE Methylprednisolone Sodium 0 mg 02/22/21 02:43 02/22/21 03:01 Succinate 125 mg/ Sterile IV 02/22/21 02:44 Not Given Water 2 ml STAT ONE Lab/Rad Data: Laboratory Result Diagrams 02/22/21 03:04 02/22/21 03:04 Laboratory Results 02/22/21 02/22/21 02/22/21 Range/Units 03:20 03:04 03:04 WBC (4.0-10.5) K/mm3 RBC (4.1-5.6) M/mm3 Hgb (12.5-18.0) gm/dl Hct (42-50) % MCV (78-100) fl MCH (26-32) pg MCHC (32-36) g/dl RDW (11.5-14.0) % Plt Count (150-450) K/mm3 MPV (7.5-11.0) fl Gran % (36.0-66.0) % Eos # (Auto) (0-0.5) Absolute Lymphs (auto) (1.0-4.6) Absolute Monos (auto) (0.0-1.3) Lymphocytes % (24.0-44.0) % Monocytes % (0.0-12.0) % Eosinophils % (0.00-5.0) % Basophils % (0.0-0.4) % Absolute Granulocytes (1.4-6.9) Basophils # (0-0.4) D-Dimer 6244 H* (215-500) ng/mL Sodium (137-145) mmol/L Potassium (3.5-5.1) mmol/L Chloride (98-107) mmol/L Carbon Dioxide (22-30) mmol/L Anion Gap (5-15) MEQ/L BUN (9-20) mg/dL Creatinine (0.66-1.25) mg/dL Estimated GFR ML/MIN Glucose (74-106) mg/dL Lactic Acid 0.4 (0.4-2.0) Calcium (8.4-10.2) mg/dL Total Bilirubin (0.2-1.3) mg/dL AST (17-59) U/L ALT (0-50) U/L Alkaline Phosphatase (38-126) U/L Troponin I 0.057 H* (0.000-0.034) ng/mL NT-Pro-B Natriuret Pep (0-900) pg/mL Serum Total Protein (6.3-8.2) g/dL Albumin (3.5-5.0) g/dL 02/22/21 02/22/21 Range/Units 03:04 03:04 WBC 10.3 (4.0-10.5) K/mm3 RBC 3.23 L (4.1-5.6) M/mm3 Hgb 9.6 L (12.5-18.0) gm/dl Hct 30.0 L (42-50) % MCV 92.9 (78-100) fl MCH 29.7 (26-32) pg MCHC 32.0 (32-36) g/dl RDW 15.0 H (11.5-14.0) % Plt Count 216 (150-450) K/mm3 MPV 8.6 (7.5-11.0) fl Gran % 66.9 H (36.0-66.0) % Eos # (Auto) 0.42 (0-0.5) Absolute Lymphs (auto) 1.91 (1.0-4.6) Absolute Monos (auto) 1.03 (0.0-1.3) Lymphocytes % 18.6 L (24.0-44.0) % Monocytes % 10.0 (0.0-12.0) % Eosinophils % 4.1 (0.00-5.0) % Basophils % 0.4 (0.0-0.4) % Absolute Granulocytes 6.88 (1.4-6.9) Basophils # 0.04 (0-0.4) D-Dimer (215-500) ng/mL Sodium 129 L (137-145) mmol/L Potassium 5.0 (3.5-5.1) mmol/L Chloride 95 L (98-107) mmol/L Carbon Dioxide 26 (22-30) mmol/L Anion Gap 12.4 (5-15) MEQ/L BUN 36 H (9-20) mg/dL Creatinine 4.96 H (0.66-1.25) mg/dL Estimated GFR 13.0 ML/MIN Glucose 97 (74-106) mg/dL Lactic Acid (0.4-2.0) Calcium 8.5 (8.4-10.2) mg/dL Total Bilirubin 0.50 (0.2-1.3) mg/dL AST 24 (17-59) U/L ALT 12 (0-50) U/L Alkaline Phosphatase 71 (38-126) U/L Troponin I (0.000-0.034) ng/mL NT-Pro-B Natriuret Pep 78878 H (0-900) pg/mL Serum Total Protein 5.6 L (6.3-8.2) g/dL Albumin 3.0 L (3.5-5.0) g/dL - Progress Progress: improved, re-examined Air Movement: good Progress Note: 02/22/21 05:08 DISCUSSED WITH [facility] hospitalist and Dr. Piña and they will accept the pt in transfer for dialysis and cardiac Tx , but are getting a bed. Blood Culture(s) Obtained: No Antibiotics given: No Discussed with : Other (Dr Piña) Will see patient in: hospital (observation) Counseled pt/family regarding: lab results, diagnosis, need for follow-up, rad results - Departure Departure Disposition: Transfer Clinical Impression: CHF (congestive heart failure), Elevated d-dimer, Elevated troponin, Acute renal failure on dialysis Condition: Good Critical Care Time: No Referrals: PREMA PRINGLE NP [Primary Care Provider] - Instructions: Heart Failure
[2021-02-22] MEDS ORDERED: Sodium Chloride 0.9% 1000 ML 1,000 ML IV SCH (02:45)
[2021-02-22] MEDS ORDERED: Sodium Chloride 0.9% 1000 ML 1,000 ML ONE (03:02)
[2021-02-22 03:09] LABS: Absolute Neutrophil Ct (ANC) 6.88 (1.4-6.9); BASOPHIL % 0.4 % (0.0-0.4); Basophil (Absolute #) 0.04 (0-0.4); Eosinophil % 4.1 % (0.00-5.0); Eosinophil (Absolute #) 0.42 (0-0.5); Hemoglobin 9.6 gm/dl (12.5-18.0); Lymphocyte (Absolute #) 1.91 (1.0-4.6); Lymphocytes % 18.6 % (24.0-44.0); Mean Cell Volume 92.9 fl (78-100); Mean Corpuscular Hemoglobin 29.7 pg (26-32); Mean Platelet Volume 8.6 fl (7.5-11.0); Monocyte (Absolute #) 1.03 (0.0-1.3); Neutrophil % 66.9 % (36.0-66.0); Platelet Count 216 K/mm3 (150-450); Red Blood Count 3.23 M/mm3 (4.1-5.6); White Blood Count 10.3 K/mm3 (4.0-10.5)
[2021-02-22 03:28] LABS: ANION GAP 12.4 MEQ/L (5-15); BILIRUBIN,TOTAL 0.5 mg/dL (0.2-1.3); Calcium 8.5 mg/dL (8.4-10.2); Creatinine 1 4.96 mg/dL (0.66-1.25); Total Protein 5.6 g/dL (6.3-8.2)
[2021-02-22] MEDS ORDERED: Lasix 40 MG/4 ML IV ONE (05:07)
[2021-02-22] MEDS ORDERED: Lasix 40 MG/4 ML ONE (05:08)
--- NOTE | 2021-02-22 07:39 | XRAY ---
Indication: Short of breath. Comparison: January 24, 2021. Portable chest unchanged again demonstrating moderate left/tiny right effusions and pulmonary edema. Heart not enlarged again with left double lumen dialysis catheter. No new cardiopulmonary abnormalities.
[2021-02-22 08:33] VITALS: BP 190/109; PULSE 87; O2SAT 97
== END 2021-02-22 08:36 | disposition short-term general hospital (02) ==
LOC: ED 02:36
DX: I50.9 Heart failure, unspecified (principal); R79.89 Other specified abnormal findings of blood chemistry; Z99.2 Dependence on renal dialysis; I10 Essential (primary) hypertension
CPT/HCPCS: 36000; 36415; 71045; 80053; 83605; 83880; 84484; 85025; 85379; 93005; 93041; 94640; 94760; 96374; 99285; J1940; A9270-GY

== ENCOUNTER 2021-08-21 10:51 | Emergency (ER) | payer MEDICARE ==
[2021-08-21] MEDS ORDERED: SUBLIMAZE 100 MCG/2 ML IV ONE (11:05)
[2021-08-21] MEDS ORDERED: Sodium Chloride 0.9% 1000 ML 1,000 ML IV STA (11:05)
[2021-08-21] MEDS ORDERED: Sodium Chloride 0.9% 1000 ML 1,000 ML ONE (11:12)
[2021-08-21] MEDS ORDERED: SUBLIMAZE 100 MCG/2 ML ONE (11:12)
--- NOTE | 2021-08-21 11:25 | ERPHSYRPT ---
- History of Present Illness Time Seen by Provider: 08/21/21 11:05 Historian: patient, EMS Exam Limitations: no limitations Patient Subjective Stated Complaint: Pt states " My chest started this morning. I took 2 nitros 15 mins apart and called the ambulance. I went outside to wait on them and passed out a little. " Triage Nursing Assessment: Pt alert and oriented x3, pt c/o slight chest pain 3/10 pain that shoots to L shoulder intermittently Physician History: Patient is a 56-year-old male who has a history of end-stage renal disease who is on chronic peritoneal dialysis. He presents with a complaint of chest pain in the left axilla and left chest. He rates the pain 2-3 of 10. He took 2 nitroglycerin at 945 and 1100 with minimal relief. He did have a syncopal episode. He was given 324 mg of aspirin by EMS. He also reports that his normal weight which she watches carefully is 1 40-1 50 today we obtained a weight of 140 in the ER. Timing/Duration: today Activities at Onset: none Quality: throbbing Location: other (Left chest and axilla) Chest Pain Radiation: arm (Radiates to the left arm) Severity of Pain-Max: mild Severity of Pain-Current: mild Modifying Factors: Improves With: nothing, breathing. Worsens With: nitroglycerin Prior Chest Pain/Cardiac Workup: heart attack (Patient denies any report of a heart attack in the past. 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.) Nitro Today/Relief: 0.4 mg x 2 Aspirin Treatment Today: 81 mg x 4 Allergies/Adverse Reactions: Sulfa (Sulfonamide Antibiotics) Allergy (Verified 02/22/21 02:53) Home Medications: Duloxetine HCl 60 mg PO BID 09/08/16 [History] Esomeprazole Magnesium [Nexium] 40 mg PO DAILY 09/08/16 [History] Quetiapine Fumarate [Seroquel] 900 mg PO HS 09/08/16 [History] Amlodipine Besylate 5 mg [Norvasc 5 mg] 10 mg PO DAILY 01/24/21 [History] Aspirin EC 81 mg [Ecotrin 81 mg] 81 mg PO DAILY 01/24/21 [History] Atorvastatin Calcium 20 mg PO HS 01/24/21 [History] Folic Acid 400 mcg PO DAILY 01/24/21 [History] Furosemide 40 mg [Lasix 40 MG] 40 mg PO BID 01/24/21 [History] Hydralazine HCl 50 mg PO TID 01/24/21 [History] Labetalol HCl 200 mg PO TID 01/24/21 [History] Oxycodone HCl/Acetaminophen [Oxycodone-Acetaminophn 7.5-325] 1 tab PO Q6H PRN PRN 01/24/21 [History] Albuterol Sulfate [Albuterol Sulfate Hfa] 2 inh IH Q4-6HPRN PRN 02/22/21 [History] Fluticasone/Salmeterol [Advair 250-50 Diskus] 1 each IH BID 02/22/21 [History] Levalbuterol Tartrate [Levalbuterol Tartrate Hfa] 15 gm IH Q6H PRN PRN 02/22/21 [History] Hx Tetanus, Diphtheria Vaccination/Date Given: Yes Hx Influenza Vaccination/Date Given: No Hx Pneumococcal Vaccination/Date Given: Yes Immunizations Up to Date: No Travel Risk - International Travel Have you traveled outside of the country in past 3 weeks: No - Coronavirus Screening Are you exhibiting any of the following symptoms?: No Close contact with a COVID-19 positive Pt in past 14-21 Days: No - Vaccine Status Have you recieved a Covid-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[employer] - Vaccination Dates Date of 2cond Vaccination (if applicable): Unknown - Review of Systems Constitutional: No Fever, No Chills Eyes: No Symptoms Ears, Nose, & Throat: No Symptoms Respiratory: No Cough, No Dyspnea Cardiac: Chest Pain, Syncope, No Edema Abdominal/Gastrointestinal: No Abdominal Pain, No Nausea, No Vomiting, No Diarrhea Genitourinary Symptoms: No Dysuria Musculoskeletal: No Back Pain, No Neck Pain Skin: No Rash Neurological: No Dizziness, No Focal Weakness, No Sensory Changes Psychological: No Symptoms Endocrine: No Symptoms All Other Systems: Reviewed and Negative - Past Medical History Pertinent Past Medical History: Yes Neurological History: No Pertinent History ENT History: No Pertinent History Cardiac History: High Cholesterol, Hypertension Respiratory History: COPD Endocrine Medical History: Diabetes Type II Musculoskeletal History: No Pertinent History GI Medical History: GERD History: Dialysis Psycho-Social History: Other Male Reproductive Disorders: No Pertinent History Other Medical History: schizo - Past Surgical History Past Surgical History: Yes Neuro Surgical History: No Pertinent History Cardiac: No Pertinent History Respiratory: No Pertinent History Gastrointestinal: Appendectomy, Cholecystectomy, Hernia Repair Genitourinary: No Pertinent History Musculoskeletal: Orthopedic Surgery Male Surgical History: Vasectomy Other Surgical History: left knee, right knee - Social History Smoking Status: Current every day smoker How long have you smoked: 40 years Exposure to second hand smoke: Yes Drug Use: marijuana Patient Lives Alone: Yes - Nursing Vital Signs Nursing Vital Signs: Initial Vital Signs Temperature 97.4 F 08/21/21 10:52 Pulse Rate 78 08/21/21 10:52 Respiratory Rate 24 08/21/21 10:52 Blood Pressure 129/77 08/21/21 10:52 O2 Sat by Pulse Oximetry 94 L 08/21/21 10:52 Pain Scale Pain Intensity 6 - Physical Exam General Appearance: mild distress Eye Exam: PERRL/EOMI, eyes nml inspection Ears, Nose, Throat Exam: normal ENT inspection, moist mucous membranes Neck Exam: normal inspection, non-tender, supple, full range of motion Respiratory Exam: normal breath sounds, lungs clear, No respiratory distress Cardiovascular Exam: regular rate/rhythm, normal heart sounds Gastrointestinal/Abdomen Exam: soft, other (Dialysis catheter) Back Exam: normal inspection, No CVA tenderness, No vertebral tenderness Extremity Exam: normal inspection, normal range of motion Neurologic Exam: alert, oriented x 3, cooperative, normal mood/affect, sensation nml, No motor deficits Skin Exam: warm, dry SpO2 Interpretation: normal SpO2: 94 O2 Delivery: Room Air - Course Nursing assessment & vital signs reviewed: Yes EKG Interpreted by Me: RATE (77), Sinus Rhythm, prolonged QT interval, Other (LVH with secondary repolarization abnormality) - Radiology Exams Chest X-ray Interpretation: Interpreted by me (There is bilateral small pleural effusions with infiltrates especially on the left greater than right in the base.) Ordered Tests: Active Orders 24 hr Category Date Time Status EKG-ER Only STAT Care 08/21/21 11:05 Active IV Insertion STAT Care 08/21/21 11:05 Active CHEST 1 VIEW (PORTABLE) Stat Exams 08/21/21 11:06 Taken AMYLASE Stat Lab 08/21/21 11:35 Completed BLOOD CULTURE Stat Lab 08/21/21 11:40 Received CBC W DIFF Stat Lab 08/21/21 11:35 Completed CMP Stat Lab 08/21/21 11:35 Completed D-DIMER QUANTITATIVE Stat Lab 08/21/21 11:35 Completed LIPASE Stat Lab 08/21/21 11:35 Completed Lactic Acid Stat Lab 08/21/21 11:13 Completed MAGNESIUM Stat Lab 08/21/21 11:35 Completed NT PRO BNP Stat Lab 08/21/21 11:35 Completed PROTIME WITH INR Stat Lab 08/21/21 11:35 Completed TROPONIN Q3H Lab 08/21/21 11:15 Completed TROPONIN Q3H Lab 08/21/21 14:15 Ordered TROPONIN Q3H Lab 08/21/21 17:15 Ordered TROPONIN Q3H Lab 08/21/21 20:15 Ordered TROPONIN Q3H Lab 08/21/21 23:15 Ordered UA W/RFX UR CULTURE Stat Lab 08/21/21 11:06 Ordered Medication Summary Discontinued Medications Generic Name Dose Route Start Last Admin Trade Name Freq PRN Reason Stop Dose Admin Enoxaparin Sodium 60 mg 08/21/21 12:24 Enoxaparin Sodium 120 Mg/0.8 Ml Syringe SQ 08/21/21 12:25 1XONLY ONE Fentanyl Citrate 25 mcg 08/21/21 11:05 08/21/21 11:17 Fentanyl Citrate 100 Mcg/2 Ml* Vial IV 08/21/21 11:06 25 mcg STAT ONE Administration Fentanyl Citrate Confirm 08/21/21 11:12 Fentanyl Citrate 100 Mcg/2 Ml* Vial Administered 08/21/21 11:13 Dose 100 mcg .ROUTE .STK-MED ONE Sodium Chloride 1,000 mls @ 999 mls/hr 08/21/21 11:05 08/21/21 11:16 Sodium Chloride 0.9% 1000 Ml IV 08/21/21 12:05 999 mls/hr .Q1H1M STA Administration Sodium Chloride Confirm 08/21/21 11:12 Sodium Chloride 0.9% 1000 Ml Administered 08/21/21 11:13 Dose 1,000 mls @ ud .ROUTE .STK-MED ONE Lab/Rad Data: Laboratory Result Diagrams 08/21/21 11:35 08/21/21 11:35 Laboratory Results 08/21/21 08/21/21 08/21/21 Range/Units 11:35 11:35 11:35 WBC 10.2 (4.0-10.5) K/mm3 RBC 3.36 L (4.1-5.6) M/mm3 Hgb 10.1 L (12.5-18.0) gm/dl Hct 31.4 L (42-50) % MCV 93.5 (78-100) fl MCH 30.1 (26-32) pg MCHC 32.2 (32-36) g/dl RDW 17.3 H (11.5-14.0) % Plt Count 347 (150-450) K/mm3 MPV 8.9 (7.5-11.0) fl Gran % 67.6 H (36.0-66.0) % Eos # (Auto) 0.63 H (0-0.5) Absolute Lymphs (auto) 1.61 (1.0-4.6) Absolute Monos (auto) 0.98 (0.0-1.3) Lymphocytes % 15.8 L (24.0-44.0) % Monocytes % 9.6 (0.0-12.0) % Eosinophils % 6.2 H (0.00-5.0) % Basophils % 0.8 (0.0-0.4) % Absolute Granulocytes 6.91 H (1.4-6.9) Basophils # 0.08 (0-0.4) PT 11.9 (9.4-12.5) SECONDS INR 1.01 (0.8-3.0) D-Dimer 7589 H* (215-500) ng/mL Sodium 130 L (137-145) mmol/L Potassium 3.0 L* (3.5-5.1) mmol/L Chloride 92 L (98-107) mmol/L Carbon Dioxide 25 (22-30) mmol/L Anion Gap 15.8 H (5-15) MEQ/L BUN 53 H (9-20) mg/dL Creatinine 9.16 H (0.66-1.25) mg/dL Estimated GFR 6.4 ML/MIN Glucose 202 H (74-106) mg/dL Lactic Acid (0.4-2.0) Calcium 8.1 L (8.4-10.2) mg/dL Magnesium 2.0 (1.6-2.3) mg/dL Total Bilirubin 0.80 (0.2-1.3) mg/dL AST 26 (17-59) U/L ALT 20 (0-50) U/L Alkaline Phosphatase 79 (38-126) U/L Troponin I (0.000-0.034) ng/mL NT-Pro-B Natriuret Pep 12113 H (0-900) pg/mL Serum Total Protein 6.1 L (6.3-8.2) g/dL Albumin 3.1 L (3.5-5.0) g/dL Amylase 85 (30-110) U/L Lipase 82 (23-300) U/L 08/21/21 08/21/21 Range/Units 11:15 11:13 WBC (4.0-10.5) K/mm3 RBC (4.1-5.6) M/mm3 Hgb (12.5-18.0) gm/dl Hct (42-50) % MCV (78-100) fl MCH (26-32) pg MCHC (32-36) g/dl RDW (11.5-14.0) % Plt Count (150-450) K/mm3 MPV (7.5-11.0) fl Gran % (36.0-66.0) % Eos # (Auto) (0-0.5) Absolute Lymphs (auto) (1.0-4.6) Absolute Monos (auto) (0.0-1.3) Lymphocytes % (24.0-44.0) % Monocytes % (0.0-12.0) % Eosinophils % (0.00-5.0) % Basophils % (0.0-0.4) % Absolute Granulocytes (1.4-6.9) Basophils # (0-0.4) PT (9.4-12.5) SECONDS INR (0.8-3.0) D-Dimer (215-500) ng/mL Sodium (137-145) mmol/L Potassium (3.5-5.1) mmol/L Chloride (98-107) mmol/L Carbon Dioxide (22-30) mmol/L Anion Gap (5-15) MEQ/L BUN (9-20) mg/dL Creatinine (0.66-1.25) mg/dL Estimated GFR ML/MIN Glucose (74-106) mg/dL Lactic Acid 1.7 (0.4-2.0) Calcium (8.4-10.2) mg/dL Magnesium (1.6-2.3) mg/dL Total Bilirubin (0.2-1.3) mg/dL AST (17-59) U/L ALT (0-50) U/L Alkaline Phosphatase (38-126) U/L Troponin I 0.216 H* (0.000-0.034) ng/mL NT-Pro-B Natriuret Pep (0-900) pg/mL Serum Total Protein (6.3-8.2) g/dL Albumin (3.5-5.0) g/dL Amylase (30-110) U/L Lipase (23-300) U/L - Progress Progress: unchanged Air Movement: good Blood Culture(s) Obtained: No Antibiotics given: No - Departure Departure Disposition: Transfer (Patient will be transferred to [facility] for further treatment and evaluation accepting physician was Dr. Kong) Clinical Impression: Chest pain, Elevated d-dimer, Elevated troponin, Peritoneal dialysis catheter in place, Syncope, CHF (congestive heart failure) Condition: Fair Critical Care Time: No Referrals: PREMA PRINGLE NP [Primary Care Provider] - Follow up/PCP as directed Instructions: Heart Failure, Chest Pain (DC)
[2021-08-21 11:50] LABS: Absolute Neutrophil Ct (ANC) 6.91 (1.4-6.9); Basophil (Absolute #) 0.08 (0-0.4); Eosinophil % 6.2 % (0.00-5.0); Eosinophil (Absolute #) 0.63 (0-0.5); Hematocrit 31.4 % (42-50); Hemoglobin 10.1 gm/dl (12.5-18.0); Lymphocyte (Absolute #) 1.61 (1.0-4.6); Lymphocytes % 15.8 % (24.0-44.0); Mean Cell Volume 93.5 fl (78-100); Mean Corpuscular Hemoglobin 30.1 pg (26-32); Mean Corpuscular Hgb Concent. 32.2 g/dl (32-36); Mean Platelet Volume 8.9 fl (7.5-11.0); Monocyte (Absolute #) 0.98 (0.0-1.3); Monocytes % 9.6 % (0.0-12.0); Neutrophil % 67.6 % (36.0-66.0); Platelet Count 347 K/mm3 (150-450); Red Blood Count 3.36 M/mm3 (4.1-5.6); Red Cell Distribution Width 17.3 % (11.5-14.0); White Blood Count 10.2 K/mm3 (4.0-10.5)
[2021-08-21 11:56] LABS: INR 1.01 (0.8-3.0); PROTIME 11.9 SECONDS (9.4-12.5)
[2021-08-21 12:09] LABS: ALBUMIN 3.1 g/dL (3.5-5.0); ANION GAP 15.8 MEQ/L (5-15); BILIRUBIN,TOTAL 0.8 mg/dL (0.2-1.3); Calcium 8.1 mg/dL (8.4-10.2); Creatinine 1 9.16 mg/dL (0.66-1.25); EST GLOMERULAR FILTRATION RATE 6.4 ML/MIN; Total Protein 6.1 g/dL (6.3-8.2)
[2021-08-21] MEDS ORDERED: ENOXAPARIN SODIUM SQ ONE ×2 (12:24→12:36)
[2021-08-21] MEDS ORDERED: Klor Con 10 MEQ PO ONE ×2 (12:39→12:40)
[2021-08-21 13:32] LABS: INFLUENZA A NEGATIVE (NEGATIVE); INFLUENZA B NEGATIVE (NEGATIVE)
[2021-08-21 13:49] LABS: COVID AG -BINAX NOW RAPID TEST NEGATIVE (NEGATIVE)
[2021-08-21 17:26] VITALS: BP 149/89; PULSE 92; O2SAT 97
--- NOTE | 2021-08-21 18:57 | XRAY ---
Indication: Syncope. Left chest pain. Comparison: February 22, 2021. Portable chest again demonstrates bibasilar infiltrates/atelectasis/effusions again left greater than right. Remaining heart and upper lungs unremarkable. Dialysis catheter removed. Bony thorax intact.
== END 2021-08-21 17:51 | disposition short-term general hospital (02) ==
LOC: ED 10:51
DX: R07.9 Chest pain, unspecified (principal); R79.1 Abnormal coagulation profile; R77.8 Other specified abnormalities of plasma proteins; R55 Syncope and collapse; I50.9 Heart failure, unspecified; I13.2 Hypertensive heart and chronic kidney disease with heart failure and with stage 5 chronic kidney disease, or end stage renal disease; E11.22 Type 2 diabetes mellitus with diabetic chronic kidney disease; N18.6 End stage renal disease; Z99.2 Dependence on renal dialysis; E78.5 Hyperlipidemia, unspecified; J44.9 Chronic obstructive pulmonary disease, unspecified; Z72.0 Tobacco use; Z79.891 Long term (current) use of opiate analgesic; Z79.899 Other long term (current) drug therapy
CPT/HCPCS: 36000; 36415; 71045; 80053; 82150; 83605; 83690; 83735; 83880; 84484; 85025; 85379; 85610; 87040; 87400; 93005; 96360; 96372; 96374; 99000; 99285; J1650; J3010; A9270-GY

== ENCOUNTER 2021-11-26 23:07 | Emergency (ER) | payer MEDICARE ==
[2021-11-26 23:21] VITALS: O2SAT 98
--- NOTE | 2021-11-26 23:39 | ERPHSYRPT ---
- History of Present Illness Time Seen by Provider: 11/26/21 23:20 Source: patient Exam Limitations: no limitations Patient Subjective Stated Complaint: pt states " I got really dizzy around 1800 and my blood pressure was low." Triage Nursing Assessment: Pt presents to ER per EMS from [facility], pt c/o dizziness and hypotension that started around 1800, pt does periteneal dialysis at home and in the process of the procedure when ems got there, manual bp was 50/30s, bp improved to 116/73 in route, pt recieved approximately 100 mL of normal saline, fsbs was 335 Physician History: This is a 56-year-old white male patient who is diabetic and has renal failure on home peritoneal dialysis and presents with symptoms of dizziness during his first portion of dialysis session. EMS arrived and he was hypotensive and complained of dizziness. They placed an IV and infused normal saline solution. His blood pressure improved to 116 systolic and his dizziness improved. Upon arrival to the emergency department the patient's hypotension had resolved and his dizziness is nearly completely resolved. He denies chest pain. He has no new shortness of breath. Patient has a history of diabetes, hypertension, gastroesophageal reflux disease, elevated cholesterol and COPD. He has no abdominal pain. Timing/Duration: today Severity: mild Character of Deficits: none Deficits: no difficulties Baseline/Normal Cognition: alert oriented x 3 Current Cognition: alert oriented x 3 Baseline Gait: walks w/o assistance Associated Symptoms: denies symptoms Allergies/Adverse Reactions: Sulfa (Sulfonamide Antibiotics) Allergy (Verified 11/26/21 23:09) Home Medications: Duloxetine HCl 60 mg PO BID 09/08/16 [History] Esomeprazole Magnesium [Nexium] 40 mg PO DAILY 09/08/16 [History] Quetiapine Fumarate [Seroquel] 900 mg PO HS 09/08/16 [History] Amlodipine Besylate 5 mg [Norvasc 5 mg] 10 mg PO DAILY 01/24/21 [History] Aspirin EC 81 mg [Ecotrin 81 mg] 81 mg PO DAILY 01/24/21 [History] Atorvastatin Calcium 20 mg PO HS 01/24/21 [History] Folic Acid 400 mcg PO DAILY 01/24/21 [History] Furosemide 40 mg [Lasix 40 MG] 40 mg PO BID 01/24/21 [History] Hydralazine HCl 50 mg PO TID 01/24/21 [History] Labetalol HCl 200 mg PO TID 01/24/21 [History] Albuterol Sulfate [Albuterol Sulfate Hfa] 2 inh IH Q4-6HPRN PRN 02/22/21 [History] Fluticasone/Salmeterol [Advair 250-50 Diskus] 1 each IH BID 02/22/21 [History] Levalbuterol Tartrate [Levalbuterol Tartrate Hfa] 15 gm IH Q6H PRN PRN 02/22/21 [History] Hx Tetanus, Diphtheria Vaccination/Date Given: Yes Hx Influenza Vaccination/Date Given: Yes Hx Pneumococcal Vaccination/Date Given: Yes Immunizations Up to Date: Yes Travel Risk - International Travel Have you traveled outside of the country in past 3 weeks: No - Coronavirus Screening Are you exhibiting any of the following symptoms?: No Close contact with a COVID-19 positive Pt in past 14-21 Days: No - Vaccine Status Have you recieved a Covid-19 vaccination: Yes [employer]: [place] - Vaccination Dates Date of 2cond Vaccination (if applicable): Unknown - Review of Systems Constitutional: No Symptoms Eyes: No Symptoms Ears, Nose, & Throat: No Symptoms Respiratory: No Symptoms Cardiac: No Symptoms Abdominal/Gastrointestinal: No Symptoms Genitourinary Symptoms: No Symptoms Musculoskeletal: No Symptoms Skin: No Symptoms Neurological: Dizziness Psychological: No Symptoms Endocrine: No Symptoms Hematologic/Lymphatic: No Symptoms Immunological/Allergic: No Symptoms All Other Systems: Reviewed and Negative - Past Medical History Pertinent Past Medical History: Yes Neurological History: No Pertinent History ENT History: No Pertinent History Cardiac History: High Cholesterol, Hypertension Respiratory History: COPD Endocrine Medical History: Diabetes Type II Musculoskeletal History: No Pertinent History GI Medical History: GERD History: Dialysis Psycho-Social History: Other Male Reproductive Disorders: No Pertinent History Other Medical History: schizo - Past Surgical History Past Surgical History: Yes Neuro Surgical History: No Pertinent History Cardiac: No Pertinent History Respiratory: No Pertinent History Gastrointestinal: Appendectomy, Cholecystectomy, Hernia Repair Genitourinary: No Pertinent History Musculoskeletal: Orthopedic Surgery Male Surgical History: Vasectomy Other Surgical History: left knee, right knee, bilateral carpal tunnel - Social History Smoking Status: Current every day smoker How long have you smoked: 40 years Exposure to second hand smoke: Yes Drug Use: marijuana Patient Lives Alone: Yes - Nursing Vital Signs Nursing Vital Signs: Initial Vital Signs Temperature 98.2 F 11/26/21 23:13 Pulse Rate 88 11/26/21 23:13 Respiratory Rate 18 11/26/21 23:13 Blood Pressure 138/88 11/26/21 23:13 O2 Sat by Pulse Oximetry 98 11/26/21 23:13 Pain Scale Pain Intensity 8 - [place] Coma Scale Best Eye Response (Leslie): (4) open spontaneously Best Verbal Response ([place]): (5) oriented Best Motor Response (Leslie): (6) obeys commands Leslie Total: 15 - Physical Exam General Appearance: no apparent distress, alert, anxiety Eye Exam: bilateral eye: normal inspection, PERRL, EOMI Ears, Nose, Throat Exam: normal ENT inspection, moist mucous membranes Neck Exam: normal inspection, non-tender, supple, full range of motion Respiratory: normal breath sounds, lungs clear, airway intact, No chest tende rness, No respiratory distress Cardiovascular: regular rate/rhythm, normal heart sounds, normal peripheral pulses Gastrointestinal: soft, normal bowel sounds, No tenderness Rectal Exam: not done Back Exam: normal inspection, normal range of motion, No CVA tenderness, No vertebral tenderness Extremity Exam: normal inspection, normal range of motion, pelvis stable Mental Status: alert, oriented x 3, 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 Acute ischemic changes on today's EKG.) Ordered Tests: Active Orders 24 hr Category Date Time Status EKG-ER Only STAT Care 11/26/21 23:28 Active CBC W DIFF Stat Lab 11/26/21 23:51 Completed CMP Stat Lab 11/26/21 23:51 Completed Medication Summary Generic Name Dose Route Start Last Admin Trade Name Freq PRN Reason Stop Dose Admin Potassium Chloride 20 meq in 100 mls @ 50 mls/hr 11/27/21 00:30 11/27/21 00:44 Potassium Chloride 20 Meq In Water 100ml IV 11/27/21 04:29 50 mls/hr Q2H MARII Administration Sodium Chloride 500 mls @ 50 mls/hr 11/27/21 00:45 11/27/21 00:45 Sodium Chloride 0.9% 500 Ml IV 12/27/21 00:44 50 mls/hr .Q10H MARII Administration Discontinued Medications Generic Name Dose Route Start Last Admin Trade Name Freq PRN Reason Stop Dose Admin Oxycodone/Acetaminophen 1 tab 11/27/21 01:13 Oxycodone Hcl/Apap 5 Mg/325 Mg Tablet PO 11/27/21 01:14 STAT STA Lab/Rad Data: Laboratory Result Diagrams 11/26/21 23:51 11/26/21 23:51 Laboratory Results 11/26/21 11/26/21 Range/Units 23:51 23:51 WBC 14.4 H (4.0-10.5) x10^3/uL RBC 3.36 L (4.1-5.6) x10^6/uL Hgb 10.2 L (12.5-18.0) g/dL Hct 31.1 L (42-50) % MCV 92.6 (78-100) fL MCH 30.4 (26-32) pg MCHC 32.8 (32-36) g/dL RDW 14.1 H (11.5-14.0) % Plt Count 293 (150-450) x10^3/uL MPV 9.1 (7.5-11.0) fL Gran % 77.0 H (36.0-66.0) % Immature Gran % (Auto) 0.9 H (0.00-0.4) % Nucleat RBC Rel Count 0.0 (0.00-0.1) % Eos # (Auto) 0.83 H (0-0.5) x10^3/uL Immature Gran # (Auto) 0.13 H (0.00-0.03) x10^3u/L Absolute Lymphs (auto) 1.09 (1.0-4.6) x10^3/uL Absolute Monos (auto) 1.14 (0.0-1.3) x10^3/uL Absolute Nucleated RBC 0.00 (0.00-0.01) x10^3u/L Lymphocytes % 7.6 L (24.0-44.0) % Monocytes % 7.9 (0.0-12.0) % Eosinophils % 5.8 H (0.00-5.0) % Basophils % 0.8 (0.0-0.4) % Absolute Granulocytes 11.04 H (1.4-6.9) x10^3/uL Basophils # 0.12 (0-0.4) x10^3/uL Sodium 131 L (137-145) mmol/L Potassium 2.4 L* (3.5-5.1) mmol/L Chloride 91 L (98-107) mmol/L Carbon Dioxide 30 (22-30) mmol/L Anion Gap 12.5 (5-15) MEQ/L BUN 44 H (9-20) mg/dL Creatinine 7.89 H (0.66-1.25) mg/dL Estimated GFR 7.6 ML/MIN Glucose 203 H (74-106) mg/dL Calcium 7.8 L (8.4-10.2) mg/dL Total Bilirubin 0.70 (0.2-1.3) mg/dL AST 29 (17-59) U/L ALT 20 (0-50) U/L Alkaline Phosphatase 76 (38-126) U/L Serum Total Protein 5.9 L (6.3-8.2) g/dL Albumin 2.7 L (3.5-5.0) g/dL - Progress Progress: improved Progress Note: 11/27/21 01:17 Patient states that he no longer has dizziness. Medical decision making: Mr. Joseph told me that he does not have to drain the dialysate at this time. He could do that as late as 6:00 in the morning. He does not have the material to do that at this time and has no one to bring him the material to complete his peritoneal dialysis session. However, he states that that is fine he can do that at 6:00 this morning. His potassium was 2.4 and we are providing him with 40 mEq of potassium intravenously and 20 mEq orally before his discharge to home he will also take potassium 10 mg at orally twice a day on 11/27/2021 then return to the [facility] to have a BMP drawn on Monday on 11/28/2021. He is to wait in the emergency department waiting area for the result. Counseled pt/family regarding: lab results, diagnosis, need for follow-up - Departure Departure Disposition: Home Clinical Impression: Hypokalemia Condition: Stable Critical Care Time: Yes Critical Care Time(excluding separately billable procedures): Critical 30-74 mins (30 minutes) Referrals: [facility] [Primary Care Provider] - Follow up/PCP as directed Additional Instructions: Drink plenty fluids. Perform your home peritoneal dialysis as prescribed. Take the potassium medication as prescribed. Return to the [facility] lab on 11/28/2021, and obtain a basic metabolic panel to reevaluate your potassium. Wait in the emergency department waiting room for the result and further instructions Prescriptions: Potassium Chloride Tab* [Klor Con] 10 meq PO BID #2 tab
[2021-11-26 23:53] LABS: Absolute Neutrophil Ct (ANC) 11.04 x10^3/uL (1.4-6.9); Basophil (Absolute #) 0.12 x10^3/uL (0-0.4); Eosinophil % 5.8 % (0.00-5.0); Eosinophil (Absolute #) 0.83 x10^3/uL (0-0.5); Hematocrit 31.1 % (42-50); Hemoglobin 10.2 g/dL (12.5-18.0); Lymphocyte (Absolute #) 1.09 x10^3/uL (1.0-4.6); Lymphocytes % 7.6 % (24.0-44.0); Mean Cell Volume 92.6 fL (78-100); Mean Corpuscular Hemoglobin 30.4 pg (26-32); Mean Corpuscular Hgb Concent. 32.8 g/dL (32-36); Mean Platelet Volume 9.1 fL (7.5-11.0); Monocyte (Absolute #) 1.14 x10^3/uL (0.0-1.3); Monocytes % 7.9 % (0.0-12.0); Platelet Count 293 x10^3/uL (150-450); Red Blood Count 3.36 x10^6/uL (4.1-5.6); Red Cell Distribution Width 14.1 % (11.5-14.0); White Blood Count 14.4 x10^3/uL (4.0-10.5)
[2021-11-27 00:08] LABS: ALBUMIN 2.7 g/dL (3.5-5.0); ANION GAP 12.5 MEQ/L (5-15); BILIRUBIN,TOTAL 0.7 mg/dL (0.2-1.3); Calcium 7.8 mg/dL (8.4-10.2); Creatinine 1 7.89 mg/dL (0.66-1.25); EST GLOMERULAR FILTRATION RATE 7.6 ML/MIN; Total Protein 5.9 g/dL (6.3-8.2)
[2021-11-27 00:13] LABS: Potassium 2.4 mmol/L (3.5-5.1)
[2021-11-27] MEDS ORDERED: Sodium Chloride 0.9% 500 ML 500 ML IV ONE (00:43)
[2021-11-27] MEDS ORDERED: POTASSIUM CHLORIDE 20 mEq IN WATER 100ML 100 ML IV ONE ×2 (00:43→02:30)
[2021-11-27] MEDS: POTASSIUM CHLORIDE 20 mEq IN WATER 100ML 20 MEQ/100 ML BAG IV SCH ×2 (00:44→02:31)
[2021-11-27] MEDS ORDERED: Sodium Chloride 0.9% 500 ML 500 ML IV SCH (00:45)
[2021-11-27] MEDS ORDERED: PERCOCET TABLET 5/325MG PO STA (01:13)
[2021-11-27] MEDS ORDERED: PERCOCET TABLET 5/325MG ONE (01:38)
[2021-11-27 06:02] VITALS: BP 140/90; PULSE 87
== END 2021-11-27 06:08 | disposition home or self-care (01) ==
LOC: ED 23:07
DX: E87.6 Hypokalemia (principal); R42 Dizziness and giddiness; E11.22 Type 2 diabetes mellitus with diabetic chronic kidney disease; I12.0 Hypertensive chronic kidney disease with stage 5 chronic kidney disease or end stage renal disease; N18.6 End stage renal disease; Z99.2 Dependence on renal dialysis; E78.5 Hyperlipidemia, unspecified; J44.9 Chronic obstructive pulmonary disease, unspecified; Z72.0 Tobacco use; Z79.899 Other long term (current) drug therapy
CPT/HCPCS: 36415; 80053; 85025; 93005; 99284; 99291; J3480; A9270-GY

== ENCOUNTER 2021-12-31 13:53 | Observation (INO) | payer MEDICARE ==
--- NOTE | 2021-12-31 14:01 | ERPHSYRPT ---
- History of Present Illness Time Seen by Provider: 12/31/21 14:00 Source: patient, EMS Exam Limitations: no limitations Physician History: This is a 56-year-old white male patient who has renal failure and does home dialysis daily. He has not performed dialysis today yet. In the last week patient has had intermittent periods of time where he has been dizzy and even was vomiting on a couple occasions during the week. Today, he felt more dizzy and therefore he contacted EMS. Upon arrival EMS, the systolic blood pressure on this patient, who is typically hypertensive, was in the 90s. Patient states there is been no change in his diet or medication or activities. Patient was seen here approximately 1 month ago with the same symptoms. Patient arrives to the emergency department with a systolic blood pressure of 120. Patient denies chest pain. He denies shortness of breath. Patient is a current daily smoker of cigarettes. Patient has a history of elevated cholesterol, diabetes, hypertension, gastroesophageal reflux disease and COPD. Timing/Duration: week(s), worse Severity: moderate Deficits: weak Baseline/Normal Cognition: alert oriented x 3 Current Cognition: alert oriented x 3 Baseline Gait: walks w/o assistance Associated Symptoms: nausea, vomiting, weakness Allergies/Adverse Reactions: Sulfa (Sulfonamide Antibiotics) Allergy (Verified 12/31/21 14:03) Home Medications: Duloxetine HCl 60 mg PO BID 09/08/16 [History] Esomeprazole Magnesium [Nexium] 40 mg PO DAILY 09/08/16 [History] Quetiapine Fumarate [Seroquel] 900 mg PO HS 09/08/16 [History] Amlodipine Besylate 5 mg [Norvasc 5 mg] 10 mg PO DAILY 01/24/21 [History] Aspirin EC 81 mg [Ecotrin 81 mg] 81 mg PO DAILY 01/24/21 [History] Atorvastatin Calcium 20 mg PO HS 01/24/21 [History] Folic Acid 400 mcg PO DAILY 01/24/21 [History] Furosemide 40 mg [Lasix 40 MG] 40 mg PO BID 01/24/21 [History] Hydralazine HCl 50 mg PO TID 01/24/21 [History] Labetalol HCl 200 mg PO TID 01/24/21 [History] Albuterol Sulfate [Albuterol Sulfate Hfa] 2 inh IH Q4-6HPRN PRN 02/22/21 [History] Fluticasone/Salmeterol [Advair 250-50 Diskus] 1 each IH BID 02/22/21 [History] Levalbuterol Tartrate [Levalbuterol Tartrate Hfa] 15 gm IH Q6H PRN PRN 02/22/21 [History] Hx Tetanus, Diphtheria Vaccination/Date Given: Yes Hx Influenza Vaccination/Date Given: Yes Hx Pneumococcal Vaccination/Date Given: Yes Travel Risk - International Travel Have you traveled outside of the country in past 3 weeks: No - Coronavirus Screening Are you exhibiting any of the following symptoms?: No - Vaccine Status Have you recieved a Covid-19 vaccination: Yes [employer]: [employer] - Vaccination Dates Date of 2cond Vaccination (if applicable): Unknown - Review of Systems Constitutional: Weakness Eyes: No Symptoms Ears, Nose, & Throat: No Symptoms Respiratory: No Symptoms Cardiac: No Symptoms Abdominal/Gastrointestinal: Nausea, Vomiting, No Abdominal Pain Genitourinary Symptoms: No Symptoms Musculoskeletal: No Symptoms Skin: No Symptoms Neurological: Dizziness Psychological: No Symptoms Endocrine: No Symptoms Hematologic/Lymphatic: No Symptoms Immunological/Allergic: No Symptoms All Other Systems: Reviewed and Negative - Past Medical History Pertinent Past Medical History: Yes Neurological History: No Pertinent History ENT History: No Pertinent History Cardiac History: High Cholesterol, Hypertension Respiratory History: COPD Endocrine Medical History: Diabetes Type II Musculoskeletal History: No Pertinent History GI Medical History: GERD History: Dialysis Psycho-Social History: Other Male Reproductive Disorders: No Pertinent History Other Medical History: schizo - Past Surgical History Past Surgical History: Yes Neuro Surgical History: No Pertinent History Cardiac: No Pertinent History Respiratory: No Pertinent History Gastrointestinal: Appendectomy, Cholecystectomy, Hernia Repair Genitourinary: No Pertinent History Musculoskeletal: Orthopedic Surgery Male Surgical History: Vasectomy Other Surgical History: left knee, right knee, bilateral carpal tunnel - Social History Smoking Status: Current every day smoker How long have you smoked: 40 years Exposure to second hand smoke: Yes Drug Use: marijuana Patient Lives Alone: Yes - Nursing Vital Signs Nursing Vital Signs: Initial Vital Signs Temperature 97.0 F 12/31/21 13:58 Pulse Rate 78 12/31/21 13:58 Respiratory Rate 16 12/31/21 13:58 Blood Pressure 176/102 12/31/21 13:58 O2 Sat by Pulse Oximetry 98 12/31/21 13:58 Pain Scale Pain Intensity 0 - Hurley Coma Scale Best Eye Response (Leslie): (4) open spontaneously Best Verbal Response (Leslie): (5) oriented Best Motor Response (Leslie): (6) obeys commands Leslie Total: 15 - Physical Exam General Appearance: mild distress, alert, anxiety Eye Exam: bilateral eye: normal inspection, PERRL, EOMI Ears, Nose, Throat Exam: dry mucous membranes Neck Exam: normal inspection, non-tender, supple, full range of motion Respiratory: normal breath sounds, lungs clear, airway intact, No chest tenderness, No respiratory distress Cardiovascular: regular rate/rhythm, normal heart sounds, normal peripheral pulses Gastrointestinal: soft, normal bowel sounds, No tenderness Rectal Exam: not done Back Exam: normal inspection, normal range of motion, No CVA tenderness, No vertebral tenderness Extremity Exam: normal inspection, normal range of motion, pelvis stable Mental Status: alert, oriented x 3, 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 Exam: normal hearing, normal speech, PERRL, tongue midline Coordination/Gait: normal finger to nose Motor/Sensory: no motor deficit, no sensory deficit Skin Exam: normal color, warm, dry SpO2 Interpretation: normal SpO2: 98 O2 Delivery: Room Air - Course Nursing assessment & vital signs reviewed: Yes EKG Interpreted by Me: RATE (74), Sinus Rhythm, NORMAL AXIS, NORMAL INTERVALS, NORMAL QRS, Non-specific ST Changes, Other (No acute ischemic changes.) Ordered Tests: Active Orders 24 hr Category Date Time Status EKG-ER Only STAT Care 12/31/21 14:23 Active IV Insertion STAT Care 12/31/21 14:23 Active Pulse Oximetry (ED) STAT Care 12/31/21 14:23 Active HEAD WITHOUT CONTRAST [CT] Stat Exams 12/31/21 14:29 Completed CBC W DIFF Stat Lab 12/31/21 14:36 Completed CMP Stat Lab 12/31/21 14:36 Completed TROPONIN Q3H Lab 12/31/21 14:36 Completed TROPONIN Q3H Lab 12/31/21 17:04 Completed TROPONIN Q3H Lab 12/31/21 20:50 Completed TROPONIN Q3H Lab 01/01/22 02:30 Ordered Medication Summary Generic Name Dose Route Start Last Admin Trade Name Freq PRN Reason Stop Dose Admin Sodium Chloride 1,000 mls @ 50 mls/hr 12/31/21 16:00 12/31/21 15:55 Sodium Chloride 0.9% 1000 Ml IV 01/30/22 15:59 50 mls/hr .Q20H MARII Administration Potassium Chloride 100 mls @ 50 mls/hr 12/31/21 19:45 01/01/22 02:32 Potassium Chloride 20 Meq In Water 100ml IV 01/01/22 03:44 Not Given Q2H MARII Labetalol HCl 200 mg 01/01/22 22:45 12/31/21 23:06 Labetalol Hcl 100 Mg Tablet PO 01/01/22 22:46 200 mg STAT ONE Administration Discontinued Medications Generic Name Dose Route Start Last Admin Trade Name Freq PRN Reason Stop Dose Admin Hydralazine HCl 10 mg 12/31/21 17:34 12/31/21 18:14 Hydralazine Hcl 20 Mg/Ml Vial IV 12/31/21 17:35 10 mg STAT ONE Administration Hydralazine HCl Confirm 12/31/21 18:08 Hydralazine Hcl 20 Mg/Ml Vial Administered 12/31/21 18:09 Dose 20 mg .ROUTE .STK-MED ONE Hydralazine HCl 10 mg 12/31/21 18:17 12/31/21 18:23 Hydralazine Hcl 20 Mg/Ml Vial IV 12/31/21 18:18 10 mg STAT ONE Administration Hydralazine HCl Confirm 12/31/21 18:20 Hydralazine Hcl 20 Mg/Ml Vial Administered 12/31/21 18:21 Dose 20 mg .ROUTE .STK-MED ONE Hydralazine HCl 10 mg 01/01/22 02:23 01/01/22 02:35 Hydralazine Hcl 20 Mg/Ml Vial IV 01/01/22 02:24 10 mg STAT ONE Administration Hydralazine HCl Confirm 01/01/22 02:33 Hydralazine Hcl 20 Mg/Ml Vial Administered 01/01/22 02:34 Dose 20 mg .ROUTE .STK-MED ONE Sodium Chloride 500 mls @ 500 mls/hr 12/31/21 14:24 12/31/21 15:56 Sodium Chloride 0.9% 500 Ml IV 12/31/21 15:23 Infused .Q1H ONE Infusion Sodium Chloride Confirm 12/31/21 14:29 Sodium Chloride 0.9% 500 Ml Administered 12/31/21 14:30 Dose 500 mls @ ud IV .STK-MED ONE Potassium Chloride 20 meq in 100 mls @ 50 mls/hr 12/31/21 14:59 12/31/21 15:55 Potassium Chloride 20 Meq In Water 100ml IV 12/31/21 16:58 50 mls/hr STAT ONE Administration Potassium Chloride Confirm 12/31/21 15:52 Potassium Chloride 20 Meq In Water 100ml Administered 12/31/21 15:53 Dose 200 mls @ ud IV .STK-MED ONE Labetalol HCl Confirm 12/31/21 22:52 Labetalol Hcl 100 Mg Tablet Administered 12/31/21 22:53 Dose 200 mg .ROUTE .STK-MED ONE Morphine Sulfate 4 mg 12/31/21 21:01 12/31/21 21:10 Morphine Sulfate 4 Mg/Ml Injection IV 12/31/21 21:02 4 mg STAT ONE Administration Morphine Sulfate Confirm 12/31/21 21:08 Morphine Sulfate 4 Mg/Ml Injection Administered 12/31/21 21:09 Dose 4 mg .ROUTE .STK-MED ONE Nicotine 21 mg 12/31/21 22:47 12/31/21 23:06 Nicotine 21 Mg/Patch Patch TOP 12/31/21 22:48 21 mg STAT ONE Administration Ondansetron HCl 4 mg 12/31/21 16:36 12/31/21 16:50 Ondansetron Hcl 4 Mg/2 Ml Vial IV 12/31/21 16:37 4 mg STAT ONE Administration Ondansetron HCl Confirm 12/31/21 16:50 Ondansetron Hcl 4 Mg/2 Ml Vial Administered 12/31/21 16:51 Dose 4 mg .ROUTE .STK-MED ONE Quetiapine Fumarate 300 mg 12/31/21 23:23 12/31/21 23:35 Quetiapine Fumarate 100 Mg Tablet PO 12/31/21 23:24 300 mg STAT ONE Administration Lab/Rad Data: Laboratory Result Diagrams 12/31/21 14:36 12/31/21 14:36 Laboratory Results 12/31/21 12/31/21 12/31/21 Range/Units 20:50 17:04 14:42 WBC (4.0-10.5) x10^3/uL RBC (4.1-5.6) x10^6/uL Hgb (12.5-18.0) g/dL Hct (42-50) % MCV (78-100) fL MCH (26-32) pg MCHC (32-36) g/dL RDW (11.5-14.0) % Plt Count (150-450) x10^3/uL MPV (7.5-11.0) fL Gran % (36.0-66.0) % Immature Gran % (Auto) (0.00-0.4) % Nucleat RBC Rel Count (0.00-0.1) % Eos # (Auto) (0-0.5) x10^3/uL Immature Gran # (Auto) (0.00-0.03) x10^3u/L Absolute Lymphs (auto) (1.0-4.6) x10^3/uL Absolute Monos (auto) (0.0-1.3) x10^3/uL Absolute Nucleated RBC (0.00-0.01) x10^3u/L Lymphocytes % (24.0-44.0) % Monocytes % (0.0-12.0) % Eosinophils % (0.00-5.0) % Basophils % (0.0-0.4) % Absolute Granulocytes (1.4-6.9) x10^3/uL Basophils # (0-0.4) x10^3/uL Sodium (137-145) mmol/L Potassium (3.5-5.1) mmol/L Chloride (98-107) mmol/L Carbon Dioxide (22-30) mmol/L Anion Gap (5-15) MEQ/L BUN (9-20) mg/dL Creatinine (0.66-1.25) mg/dL Estimated GFR ML/MIN Glucose (74-106) mg/dL Calcium (8.4-10.2) mg/dL Total Bilirubin (0.2-1.3) mg/dL AST (17-59) U/L ALT (0-50) U/L Alkaline Phosphatase (38-126) U/L Troponin I 0.163 H* 0.162 H* (0.000-0.034) ng/mL Serum Total Protein (6.3-8.2) g/dL Albumin (3.5-5.0) g/dL Influenza Type A Ag NEGATIVE (NEGATIVE) Influenza Type B Ag NEGATIVE (NEGATIVE) RSV (PCR) NEGATIVE (Negative) SARS-CoV-2 (PCR) NEGATIVE (NEGATIVE) Slides for Path Review 12/31/21 12/31/21 12/31/21 Range/Units 14:36 14:36 14:36 WBC 8.4 (4.0-10.5) x10^3/uL RBC 4.14 (4.1-5.6) x10^6/uL Hgb 11.9 L (12.5-18.0) g/dL Hct 36.7 L (42-50) % MCV 88.6 (78-100) fL MCH 28.7 (26-32) pg MCHC 32.4 (32-36) g/dL RDW 14.2 H (11.5-14.0) % Plt Count 276 (150-450) x10^3/uL MPV 8.9 (7.5-11.0) fL Gran % 81.6 H (36.0-66.0) % Immature Gran % (Auto) 0.5 H (0.00-0.4) % Nucleat RBC Rel Count 0.0 (0.00-0.1) % Eos # (Auto) 0.16 (0-0.5) x10^3/uL Immature Gran # (Auto) 0.04 H (0.00-0.03) x10^3u/L Absolute Lymphs (auto) 0.56 L (1.0-4.6) x10^3/uL Absolute Monos (auto) 0.71 (0.0-1.3) x10^3/uL Absolute Nucleated RBC 0.00 (0.00-0.01) x10^3u/L Lymphocytes % 6.7 L (24.0-44.0) % Monocytes % 8.5 (0.0-12.0) % Eosinophils % 1.9 (0.00-5.0) % Basophils % 0.8 (0.0-0.4) % Absolute Granulocytes 6.81 (1.4-6.9) x10^3/uL Basophils # 0.07 (0-0.4) x10^3/uL Sodium 131 L (137-145) mmol/L Potassium 3.0 L* (3.5-5.1) mmol/L Chloride 94 L (98-107) mmol/L Carbon Dioxide 29 (22-30) mmol/L Anion Gap 10.4 (5-15) MEQ/L BUN 42 H (9-20) mg/dL Creatinine 8.17 H (0.66-1.25) mg/dL Estimated GFR 7.3 ML/MIN Glucose 144 H (74-106) mg/dL Calcium 7.8 L (8.4-10.2) mg/dL Total Bilirubin 0.50 (0.2-1.3) mg/dL AST 28 (17-59) U/L ALT 18 (0-50) U/L Alkaline Phosphatase 86 (38-126) U/L Troponin I 0.153 H* (0.000-0.034) ng/mL Serum Total Protein 5.2 L (6.3-8.2) g/dL Albumin 2.3 L (3.5-5.0) g/dL Influenza Type A Ag (NEGATIVE) Influenza Type B Ag (NEGATIVE) RSV (PCR) (Negative) SARS-CoV-2 (PCR) (NEGATIVE) Slides for Path Review YES 12/31/21 Range/Units 00:12 WBC (4.0-10.5) x10^3/uL RBC (4.1-5.6) x10^6/uL Hgb (12.5-18.0) g/dL Hct (42-50) % MCV (78-100) fL MCH (26-32) pg MCHC (32-36) g/dL RDW (11.5-14.0) % Plt Count (150-450) x10^3/uL MPV (7.5-11.0) fL Gran % (36.0-66.0) % Immature Gran % (Auto) (0.00-0.4) % Nucleat RBC Rel Count (0.00-0.1) % Eos # (Auto) (0-0.5) x10^3/uL Immature Gran # (Auto) (0.00-0.03) x10^3u/L Absolute Lymphs (auto) (1.0-4.6) x10^3/uL Absolute Monos (auto) (0.0-1.3) x10^3/uL Absolute Nucleated RBC (0.00-0.01) x10^3u/L Lymphocytes % (24.0-44.0) % Monocytes % (0.0-12.0) % Eosinophils % (0.00-5.0) % Basophils % (0.0-0.4) % Absolute Granulocytes (1.4-6.9) x10^3/uL Basophils # (0-0.4) x10^3/uL Sodium (137-145) mmol/L Potassium (3.5-5.1) mmol/L Chloride (98-107) mmol/L Carbon Dioxide (22-30) mmol/L Anion Gap (5-15) MEQ/L BUN (9-20) mg/dL Creatinine (0.66-1.25) mg/dL Estimated GFR ML/MIN Glucose (74-106) mg/dL Calcium (8.4-10.2) mg/dL Total Bilirubin (0.2-1.3) mg/dL AST (17-59) U/L ALT (0-50) U/L Alkaline Phosphatase (38-126) U/L Troponin I 0.163 H* (0.000-0.034) ng/mL Serum Total Protein (6.3-8.2) g/dL Albumin (3.5-5.0) g/dL Influenza Type A Ag (NEGATIVE) Influenza Type B Ag (NEGATIVE) RSV (PCR) (Negative) SARS-CoV-2 (PCR) (NEGATIVE) Slides for Path Review - Progress Progress: improved, re-examined Progress Note: 12/31/21 23:41 Seconds/repeat twelve-lead EKG on patient Alexander Joseph shows normal sinus rhythm at 76 bpm there is none specific T wave abnormalities. There is borderline prolonged QT interval. No evidence of any acute ischemic changes. 12 lead ekg 190012/31/21 23:44 CAT scan of the head without contrast shows new subtle right cerebellar hypodensity. In addition there is a remote lacunar infarct of the left internal capsule. There is no evidence of any acute intracranial hemorrhage. Medical decision making: This patient has acute renal failure with an elevated creatinine. He has not undergone his daily peritoneal dialysis. He also presents with significant hypertension as well as elevated troponin levels. He is intermittently having chest pain. For these reasons I felt the patient needs to be admitted for observation at the very least where the patient's cogeneration operator is and the nuclear medical technologist is available. I spoke with Dr. Palumbo, the patient's cogeneration operator and he agrees. I then called [facility], at the patient's request, and spoke with hospitalist Dr. Arroyo. I reviewed the patient history, physical exam findings, EKG results, CAT scan results and laboratory results with her. She accepts the patient in transfer. However, there are no beds available at this time. [facility] transfer [place] is fairly confident that this patient will be able to be transferred before noon on 01/01/2022. We contacted [facility] transfer [place]. They do not have beds available for this level of patient care. I then spoke with Dr. Serrato, our hospitalist and I reviewed the same information with her. We will place the patient on a telemetry bed and monitor this patient and tell a bed opens up at [facility]. 12/31/21 23:52 In review of the patient's CAT scan of the head without contrast there is a new subtle right cerebellar hypodensity present. There is a remote lacunar infarct of the left internal capsule. We will call [facility] to see if we can transfer the patient tonight to their facility rather than wait till tomorrow morning in the hopes that patient will obtain a bed. Findings were discussed in detail with the patient. 01/01/22 00:38 I reexamined the patient and the patient continues to have a nonfocal neurologic exam. His dizziness has improved as has his headache. I reviewed all of the patient's diagnoses with him. This was including the subtle right cerebellar hy podensity. I updated him on the plan and he is aware that we are waiting for another callback from the hospitalist from [facility]. 01/01/22 02:28 Dr. Arroyo was notified by the transfer center nurse of the CT scan of the head subtle right cerebellar hypodensity findings. I was informed by our nurse that no changes on their hand is necessary. The patient still has a bed and is still excepted for transfer. We will discuss with Dr. Serrato of the CT scan of the head findings. 01/01/22 03:[address] Serrato to update her on the findings of the CAT scan of the head. She is okay with bringing him into the hospital on a monitored bed until he is able to be transferred to [facility] when a bed opens up. Clinically, the patient is doing well. He is neurologically stable and his exam is nonfocal. His systolic blood pressure is 147. Discussed with Dr.: Andre, Other (Dr. Palumbo and Dr. Arroyo) Counseled pt/family regarding: lab results, diagnosis, rad results - Departure Departure Disposition: Observation Clinical Impression: Hypertension, Dizziness, Elevated troponin, Acute renal failure, Hypokalemia, Acute coronary syndrome, Cerebellar infarct Condition: Fair Critical Care Time: Yes Critical Care Time(excluding separately billable procedures): Critical 30-74 mins (65 minutes) Referrals: PREMA PRINGLE NP [Primary Care Provider] - Follow up/PCP as directed
[2021-12-31] MEDS ORDERED: Sodium Chloride 0.9% 500 ML 500 ML IV ONE ×2 (14:24→14:29)
[2021-12-31 14:42] LABS: Absolute Neutrophil Ct (ANC) 6.81 x10^3/uL (1.4-6.9); Basophil (Absolute #) 0.07 x10^3/uL (0-0.4); Eosinophil % 1.9 % (0.00-5.0); Eosinophil (Absolute #) 0.16 x10^3/uL (0-0.5); Hematocrit 36.7 % (42-50); Hemoglobin 11.9 g/dL (12.5-18.0); Lymphocyte (Absolute #) 0.56 x10^3/uL (1.0-4.6); Lymphocytes % 6.7 % (24.0-44.0); Mean Cell Volume 88.6 fL (78-100); Mean Corpuscular Hemoglobin 28.7 pg (26-32); Mean Corpuscular Hgb Concent. 32.4 g/dL (32-36); Mean Platelet Volume 8.9 fL (7.5-11.0); Monocyte (Absolute #) 0.71 x10^3/uL (0.0-1.3); Monocytes % 8.5 % (0.0-12.0); Neutrophil % 81.6 % (36.0-66.0); Platelet Count 276 x10^3/uL (150-450); Red Blood Count 4.14 x10^6/uL (4.1-5.6); Red Cell Distribution Width 14.2 % (11.5-14.0); White Blood Count 8.4 x10^3/uL (4.0-10.5)
[2021-12-31 14:56] LABS: ALBUMIN 2.3 g/dL (3.5-5.0); ANION GAP 10.4 MEQ/L (5-15); BILIRUBIN,TOTAL 0.5 mg/dL (0.2-1.3); Calcium 7.8 mg/dL (8.4-10.2); Creatinine 1 8.17 mg/dL (0.66-1.25); EST GLOMERULAR FILTRATION RATE 7.3 ML/MIN; Total Protein 5.2 g/dL (6.3-8.2)
[2021-12-31] MEDS ORDERED: POTASSIUM CHLORIDE 20 mEq IN WATER 100ML 20 MEQ/100 ML BAG IV ONE (14:59)
--- NOTE | 2021-12-31 15:04 | XRAY ---
Indication: Headache and dizziness. Multiple contiguous axial images obtained through the head without contrast. Comparison: February 22, 2018. Progressive age-appropriate global atrophy with new mild periventricular degenerative micro-ischemia and new remote lacunar infarct posterior limb left internal capsule. Right cerebellum demonstrates new small subtle focus of hypodensity concerning for ischemia. No acute intracranial hemorrhage, abnormal extra-axial fluid collection, or mass effect. Fourth ventricle is midline without hydrocephalus. Martins-white matter differentiation preserved. Bony calvarium intact. Again mild mucosal thickening right maxillary sinus. Remaining paranasal sinuses and mastoid air cells are clear. Impression: 1. New right cerebellum hypodensity. Rule out ischemia. MRI may yield further information. 2. Remote lacunar infarct left internal capsule. 3. Incidental right maxillary sinus disease.
[2021-12-31 15:26] LABS: INFLUENZA A NEGATIVE (NEGATIVE); INFLUENZA B NEGATIVE (NEGATIVE); RESPIRATORY SYNCTIAL VIRUS NEGATIVE (Negative); SARS-CoV-2 Xpert Express NEGATIVE (NEGATIVE)
[2021-12-31] MEDS ORDERED: POTASSIUM CHLORIDE 20 mEq IN WATER 100ML 200 ML IV ONE (15:52)
[2021-12-31] MEDS ORDERED: Sodium Chloride 0.9% 1000 ML 1,000 ML ONE (15:53)
[2021-12-31] MEDS ORDERED: Sodium Chloride 0.9% 1000 ML 1,000 ML IV SCH (16:00)
[2021-12-31] MEDS ORDERED: Zofran 4 MG/2 ML VIAL IV ONE (16:36)
[2021-12-31] MEDS ORDERED: Zofran 4 MG/2 ML VIAL ONE (16:50)
[2021-12-31] MEDS ORDERED: APRESOLINE 20 MG/ML INJ IV ONE ×2 (17:34→18:17)
[2021-12-31] MEDS ORDERED: APRESOLINE 20 MG/ML INJ ONE ×2 (18:08→18:20)
[2021-12-31 18:34] LABS: Slide Review 1 YES
[2021-12-31] MEDS: POTASSIUM CHLORIDE 20 mEq IN WATER 100ML 100 ML IV SCH ×2 (19:34→22:47)
[2021-12-31] MEDS ORDERED: MORPHINE SULFATE 4 MG INJ IV ONE (21:01)
[2021-12-31] MEDS ORDERED: MORPHINE SULFATE 4 MG INJ ONE (21:08)
[2021-12-31] MEDS ORDERED: Nicoderm CQ 21 MG TOP ONE (22:47)
[2021-12-31] MEDS ORDERED: Trandate 100 MG ONE (22:52)
[2021-12-31] MEDS ORDERED: Seroquel 100 MG PO ONE (23:23)
[2022-01-01] MEDS ORDERED: APRESOLINE 20 MG/ML INJ IV ONE (02:23)
[2022-01-01] MEDS: POTASSIUM CHLORIDE 20 mEq IN WATER 100ML 100 ML IV SCH ×2 (02:27→02:32)
[2022-01-01] MEDS ORDERED: APRESOLINE 20 MG/ML INJ ONE (02:33)
[2022-01-01] MEDS ORDERED: TYLENOL 325 MG PO PRN (04:08)
[2022-01-01] MEDS ORDERED: Sodium Chloride 0.9% 1000 ML 1,000 ML IV SCH (04:08)
[2022-01-01] MEDS: Zofran 4 MG/2 ML VIAL IV PRN ×2 (04:22→12:48)
[2022-01-01] MEDS: APRESOLINE 20 MG/ML INJ IV PRN ×2 (05:17→12:48)
[2022-01-01] MEDS: MORPHINE SULFATE 4 MG INJ IV PRN ×2 (08:46→13:23)
[2022-01-01 12:46] LABS: Absolute Neutrophil Ct (ANC) 6.38 x10^3/uL (1.4-6.9); Basophil (Absolute #) 0.06 x10^3/uL (0-0.4); Eosinophil % 2.8 % (0.00-5.0); Eosinophil (Absolute #) 0.24 x10^3/uL (0-0.5); Hematocrit 34.8 % (42-50); Hemoglobin 11.4 g/dL (12.5-18.0); Lymphocyte (Absolute #) 1.03 x10^3/uL (1.0-4.6); Lymphocytes % 11.9 % (24.0-44.0); Mean Cell Volume 89.7 fL (78-100); Mean Corpuscular Hemoglobin 29.4 pg (26-32); Mean Corpuscular Hgb Concent. 32.8 g/dL (32-36); Mean Platelet Volume 8.5 fL (7.5-11.0); Monocyte (Absolute #) 0.86 x10^3/uL (0.0-1.3); Platelet Count 265 x10^3/uL (150-450); Red Blood Count 3.88 x10^6/uL (4.1-5.6); Red Cell Distribution Width 14.1 % (11.5-14.0); White Blood Count 8.6 x10^3/uL (4.0-10.5)
--- NOTE | 2022-01-01 12:48 | PCM.HP ---
History of Present Illness - Chief Complaint Chief Complaint: cerebellar hypodensity History of Present Illness: Mr.HILL BELTRAN is a 56 year old male with end stage renal dz on home peritoneal dialysis who presented to [facility] Medications & Allergies Home Medications: Home Medication List Duloxetine HCl 60 mg PO BID 09/08/16 [History Confirmed 12/31/21] Esomeprazole Magnesium [Nexium] 40 mg PO DAILY 09/08/16 [History Confirmed 12/31/21] Quetiapine Fumarate [Seroquel] 900 mg PO HS 09/08/16 [History Confirmed 12/31/21] Amlodipine Besylate 5 mg [Norvasc 5 mg] 10 mg PO DAILY 01/24/21 [History Confirmed 12/31/21] Aspirin EC 81 mg [Ecotrin 81 mg] 81 mg PO DAILY 01/24/21 [History Confirmed 12/31/21] Atorvastatin Calcium 20 mg PO HS 01/24/21 [History Confirmed 12/31/21] Folic Acid 400 mcg PO DAILY 01/24/21 [History Confirmed 12/31/21] Furosemide 40 mg [Lasix 40 MG] 40 mg PO BID 01/24/21 [History Confirmed 12/31/21] Hydralazine HCl 50 mg PO TID 01/24/21 [History Confirmed 12/31/21] Labetalol HCl 200 mg PO TID 01/24/21 [History Confirmed 12/31/21] Albuterol Sulfate [Albuterol Sulfate Hfa] 2 inh IH Q4-6HPRN PRN 02/22/21 [History Confirmed 12/31/21] Fluticasone/Salmeterol [Advair 250-50 Diskus] 1 each IH BID 02/22/21 [History Confirmed 12/31/21] Levalbuterol Tartrate [Levalbuterol Tartrate Hfa] 15 gm IH Q6H PRN PRN 02/22/21 [History Confirmed 12/31/21] Potassium Chloride Tab* [Klor Con] 10 meq PO BID #2 tab 11/27/21 [Rx Confirmed 12/31/21] Allergies/Adverse Reactions: Allergies Allergy/AdvReac Type Severity Reaction Status Date / Time Sulfa (Sulfonamide Allergy Verified 12/31/21 14:03 Antibiotics) - Past Medical History Past Medical History: Yes Neurological History: No Pertinent History ENT History: No Pertinent History Cardiac History: High Cholesterol, Hypertension Respiratory History: COPD Endocrine Medical History: Diabetes Type II Musculoskelatal History: No Pertinent History GI Medical History: GERD History: Dialysis Pyscho-Social History: Other Male Reproductive Disorders: No Pertinent History Comment: schizo - Past Surgical History Past Surgical History: Yes Neuro Surgical History: No Pertinent History Cardiac History: No Pertinent History Respiratory Surgery: No Pertinent History GI Surgical History: Appendectomy, Cholecystectomy, Hernia Repair Genitourinary Surgical Hx: No Pertinent History Musculskeletal Surgical Hx: Orthopedic Surgery Male Surgical History: Vasectomy Other Surgical History: left knee, right knee, bilateral carpal tunnel - Social History Smoking Status: Current every day smoker How long have you smoked: several ye Exposure to second hand smoke: No Alcohol: Rarely Drug Use: marijuana - Physical Exam Vital Signs: Vital Signs - 24 hr Temp Pulse Resp BP Pulse Ox 01/01/22 08:00 97.5 F 81 7 L 168/76 94 L 01/01/22 04:37 97.3 F 82 20 183/86 93 L 01/01/22 03:43 98 01/01/22 03:36 77 16 147/83 95 01/01/22 03:00 77 10 L 151/94 95 01/01/22 02:00 74 193/104 94 L 01/01/22 01:00 74 178/97 94 L 01/01/22 00:00 74 160/102 93 L 12/31/21 23:00 68 18 168/87 98 12/31/21 21:00 83 133/95 95 12/31/21 19:28 95 12/31/21 19:27 79 16 168/108 95 12/31/21 18:50 80 18 164/89 98 12/31/21 18:14 88 20 188/110 98 12/31/21 17:28 86 18 189/109 98 12/31/21 15:54 70 18 98 12/31/21 14:15 98 12/31/21 14:00 96 12/31/21 13:58 97.0 F 78 16 176/102 98 Results - Labs Lab/Micro Results: Lab Results-Last 24 Hours 12/31/21 12/31/21 12/31/21 Range/Units 00:12 14:36 14:36 WBC 8.4 (4.0-10.5) x10^3/uL RBC 4.14 (4.1-5.6) x10^6/uL Hgb 11.9 L (12.5-18.0) g/dL Hct 36.7 L (42-50) % MCV 88.6 (78-100) fL MCH 28.7 (26-32) pg MCHC 32.4 (32-36) g/dL RDW 14.2 H (11.5-14.0) % Plt Count 276 (150-450) x10^3/uL MPV 8.9 (7.5-11.0) fL Gran % 81.6 H (36.0-66.0) % Immature Gran % (Auto) 0.5 H (0.00-0.4) % Nucleat RBC Rel Count 0.0 (0.00-0.1) % Eos # (Auto) 0.16 (0-0.5) x10^3/uL Immature Gran # (Auto) 0.04 H (0.00-0.03) x10^3u/L Absolute Lymphs (auto) 0.56 L (1.0-4.6) x10^3/uL Absolute Monos (auto) 0.71 (0.0-1.3) x10^3/uL Absolute Nucleated RBC 0.00 (0.00-0.01) x10^3u/L Lymphocytes % 6.7 L (24.0-44.0) % Monocytes % 8.5 (0.0-12.0) % Eosinophils % 1.9 (0.00-5.0) % Basophils % 0.8 (0.0-0.4) % Absolute Granulocytes 6.81 (1.4-6.9) x10^3/uL Basophils # 0.07 (0-0.4) x10^3/uL Sodium 131 L (137-145) mmol/L Potassium 3.0 L* (3.5-5.1) mmol/L Chloride 94 L (98-107) mmol/L Carbon Dioxide 29 (22-30) mmol/L Anion Gap 10.4 (5-15) MEQ/L BUN 42 H (9-20) mg/dL Creatinine 8.17 H (0.66-1.25) mg/dL Estimated GFR 7.3 ML/MIN Glucose 144 H (74-106) mg/dL POC Glucometer (74 to 106) mg/dL Calcium 7.8 L (8.4-10.2) mg/dL Total Bilirubin 0.50 (0.2-1.3) mg/dL AST 28 (17-59) U/L ALT 18 (0-50) U/L Alkaline Phosphatase 86 (38-126) U/L Troponin I 0.163 H* (0.000-0.034) ng/mL Serum Total Protein 5.2 L (6.3-8.2) g/dL Albumin 2.3 L (3.5-5.0) g/dL Prealbumin (17.6-36.0) mg/dL Influenza Type A Ag (NEGATIVE) Influenza Type B Ag (NEGATIVE) RSV (PCR) (Negative) SARS-CoV-2 (PCR) (NEGATIVE) Slides for Path Review YES 12/31/21 12/31/21 12/31/21 Range/Units 14:36 14:42 17:04 WBC (4.0-10.5) x10^3/uL RBC (4.1-5.6) x10^6/uL Hgb (12.5-18.0) g/dL Hct (42-50) % MCV (78-100) fL MCH (26-32) pg MCHC (32-36) g/dL RDW (11.5-14.0) % Plt Count (150-450) x10^3/uL MPV (7.5-11.0) fL Gran % (36.0-66.0) % Immature Gran % (Auto) (0.00-0.4) % Nucleat RBC Rel Count (0.00-0.1) % Eos # (Auto) (0-0.5) x10^3/uL Immature Gran # (Auto) (0.00-0.03) x10^3u/L Absolute Lymphs (auto) (1.0-4.6) x10^3/uL Absolute Monos (auto) (0.0-1.3) x10^3/uL Absolute Nucleated RBC (0.00-0.01) x10^3u/L Lymphocytes % (24.0-44.0) % Monocytes % (0.0-12.0) % Eosinophils % (0.00-5.0) % Basophils % (0.0-0.4) % Absolute Granulocytes (1.4-6.9) x10^3/uL Basophils # (0-0.4) x10^3/uL Sodium (137-145) mmol/L Potassium (3.5-5.1) mmol/L Chloride (98-107) mmol/L Carbon Dioxide (22-30) mmol/L Anion Gap (5-15) MEQ/L BUN (9-20) mg/dL Creatinine (0.66-1.25) mg/dL Estimated GFR ML/MIN Glucose (74-106) mg/dL POC Glucometer (74 to 106) mg/dL Calcium (8.4-10.2) mg/dL Total Bilirubin (0.2-1.3) mg/dL AST (17-59) U/L ALT (0-50) U/L Alkaline Phosphatase (38-126) U/L Troponin I 0.153 H* 0.162 H* (0.000-0.034) ng/mL Serum Total Protein (6.3-8.2) g/dL Albumin (3.5-5.0) g/dL Prealbumin (17.6-36.0) mg/dL Influenza Type A Ag NEGATIVE (NEGATIVE) Influenza Type B Ag NEGATIVE (NEGATIVE) RSV (PCR) NEGATIVE (Negative) SARS-CoV-2 (PCR) NEGATIVE (NEGATIVE) Slides for Path Review 12/31/21 01/01/22 01/01/22 Range/Units 20:50 03:58 06:45 WBC (4.0-10.5) x10^3/uL RBC (4.1-5.6) x10^6/uL Hgb (12.5-18.0) g/dL Hct (42-50) % MCV (78-100) fL MCH (26-32) pg MCHC (32-36) g/dL RDW (11.5-14.0) % Plt Count (150-450) x10^3/uL MPV (7.5-11.0) fL Gran % (36.0-66.0) % Immature Gran % (Auto) (0.00-0.4) % Nucleat RBC Rel Count (0.00-0.1) % Eos # (Auto) (0-0.5) x10^3/uL Immature Gran # (Auto) (0.00-0.03) x10^3u/L Absolute Lymphs (auto) (1.0-4.6) x10^3/uL Absolute Monos (auto) (0.0-1.3) x10^3/uL Absolute Nucleated RBC (0.00-0.01) x10^3u/L Lymphocytes % (24.0-44.0) % Monocytes % (0.0-12.0) % Eosinophils % (0.00-5.0) % Basophils % (0.0-0.4) % Absolute Granulocytes (1.4-6.9) x10^3/uL Basophils # (0-0.4) x10^3/uL Sodium (137-145) mmol/L Potassium 3.7 D (3.5-5.1) mmol/L Chloride (98-107) mmol/L Carbon Dioxide (22-30) mmol/L Anion Gap (5-15) MEQ/L BUN (9-20) mg/dL Creatinine (0.66-1.25) mg/dL Estimated GFR ML/MIN Glucose (74-106) mg/dL POC Glucometer (74 to 106) mg/dL Calcium (8.4-10.2) mg/dL Total Bilirubin (0.2-1.3) mg/dL AST (17-59) U/L ALT (0-50) U/L Alkaline Phosphatase (38-126) U/L Troponin I 0.163 H* 0.165 H* (0.000-0.034) ng/mL Serum Total Protein (6.3-8.2) g/dL Albumin (3.5-5.0) g/dL Prealbumin (17.6-36.0) mg/dL Influenza Type A Ag (NEGATIVE) Influenza Type B Ag (NEGATIVE) RSV (PCR) (Negative) SARS-CoV-2 (PCR) (NEGATIVE) Slides for Path Review 01/01/22 01/01/22 01/01/22 Range/Units 07:38 09:13 12:26 WBC (4.0-10.5) x10^3/uL RBC (4.1-5.6) x10^6/uL Hgb (12.5-18.0) g/dL Hct (42-50) % MCV (78-100) fL MCH (26-32) pg MCHC (32-36) g/dL RDW (11.5-14.0) % Plt Count (150-450) x10^3/uL MPV (7.5-11.0) fL Gran % (36.0-66.0) % Immature Gran % (Auto) (0.00-0.4) % Nucleat RBC Rel Count (0.00-0.1) % Eos # (Auto) (0-0.5) x10^3/uL Immature Gran # (Auto) (0.00-0.03) x10^3u/L Absolute Lymphs (auto) (1.0-4.6) x10^3/uL Absolute Monos (auto) (0.0-1.3) x10^3/uL Absolute Nucleated RBC (0.00-0.01) x10^3u/L Lymphocytes % (24.0-44.0) % Monocytes % (0.0-12.0) % Eosinophils % (0.00-5.0) % Basophils % (0.0-0.4) % Absolute Granulocytes (1.4-6.9) x10^3/uL Basophils # (0-0.4) x10^3/uL Sodium (137-145) mmol/L Potassium (3.5-5.1) mmol/L Chloride (98-107) mmol/L Carbon Dioxide (22-30) mmol/L Anion Gap (5-15) MEQ/L BUN (9-20) mg/dL Creatinine (0.66-1.25) mg/dL Estimated GFR ML/MIN Glucose (74-106) mg/dL POC Glucometer 90 178 H (74 to 106) mg/dL Calcium (8.4-10.2) mg/dL Total Bilirubin (0.2-1.3) mg/dL AST (17-59) U/L ALT (0-50) U/L Alkaline Phosphatase (38-126) U/L Troponin I (0.000-0.034) ng/mL Serum Total Protein (6.3-8.2) g/dL Albumin (3.5-5.0) g/dL Prealbumin 30.66 (17.6-36.0) mg/dL Influenza Type A Ag (NEGATIVE) Influenza Type B Ag (NEGATIVE) RSV (PCR) (Negative) SARS-CoV-2 (PCR) (NEGATIVE) Slides for Path Review - Radiology Impressions Radiology Exams & Impressions: Radiology Procedures Category Date Time Status HEAD WITHOUT CONTRAST [CT] Stat Exams 12/31/21 14:29 Completed
[2022-01-01 12:58] VITALS: O2SAT 96
[2022-01-01 13:06] LABS: ALBUMIN 2.1 g/dL (3.5-5.0); ANION GAP 8.6 MEQ/L (5-15); BILIRUBIN,TOTAL 0.5 mg/dL (0.2-1.3); Calcium 7.8 mg/dL (8.4-10.2); Creatinine 1 8.2 mg/dL (0.66-1.25); EST GLOMERULAR FILTRATION RATE 7.3 ML/MIN; Potassium 3.4 mmol/L (3.5-5.1); Total Protein 4.7 g/dL (6.3-8.2)
--- NOTE | 2022-01-01 13:19 | PCM.HP ---
History of Present Illness - Chief Complaint Chief Complaint: cerebellar hypodensity History of Present Illness: Mr.HILL BELTRAN is a 56 year old male with end stage renal failure on home peritoneal dialysis who presented to ER with dizziness and nausea/vomiting,weakness and a fall. 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 Troponin levels are elevated(1.63) but no chest pain or EKG changes . CT Head shows remote lacunar infarct and a new right cerebellar hypodensity. Patient has been accepted for admission to [facility] when bed becomes available. PMHx includes CKD,HTN,NIDDM2,COPD current smokier,GERD,Schizophrenia. - Review of Systems Constitutional: Weakness Eyes: No Symptoms Ears, Nose, & Throat: No Symptoms Respiratory: No Symptoms Cardiac: No Symptoms Abdominal/Gastrointestinal: No Symptoms, Nausea, Vomiting Genitourinary Symptoms: Other (low urine output) Musculoskeletal: No Symptoms Skin: No Symptoms Neurological: Dizziness, Other (fall) Medications & Allergies Home Medications: Home Medication List Duloxetine HCl 60 mg PO BID 09/08/16 [History Confirmed 12/31/21] Esomeprazole Magnesium [Nexium] 40 mg PO DAILY 09/08/16 [History Confirmed 12/31/21] Quetiapine Fumarate [Seroquel] 900 mg PO HS 09/08/16 [History Confirmed 12/31/21] Amlodipine Besylate 5 mg [Norvasc 5 mg] 10 mg PO DAILY 01/24/21 [History Confirmed 12/31/21] Aspirin EC 81 mg [Ecotrin 81 mg] 81 mg PO DAILY 01/24/21 [History Confirmed 12/31/21] Atorvastatin Calcium 20 mg PO HS 01/24/21 [History Confirmed 12/31/21] Folic Acid 400 mcg PO DAILY 01/24/21 [History Confirmed 12/31/21] Furosemide 40 mg [Lasix 40 MG] 40 mg PO BID 01/24/21 [History Confirmed 12/31/21] Hydralazine HCl 50 mg PO TID 01/24/21 [History Confirmed 12/31/21] Labetalol HCl 200 mg PO TID 01/24/21 [History Confirmed 12/31/21] Albuterol Sulfate [Albuterol Sulfate Hfa] 2 inh IH Q4-6HPRN PRN 02/22/21 [History Confirmed 12/31/21] Fluticasone/Salmeterol [Advair 250-50 Diskus] 1 each IH BID 02/22/21 [History Confirmed 12/31/21] Levalbuterol Tartrate [Levalbuterol Tartrate Hfa] 15 gm IH Q6H PRN PRN 02/22/21 [History Confirmed 12/31/21] Potassium Chloride Tab* [Klor Con] 10 meq PO BID #2 tab 11/27/21 [Rx Confirmed 12/31/21] Allergies/Adverse Reactions: Allergies Allergy/AdvReac Type Severity Reaction Status Date / Time Sulfa (Sulfonamide Allergy Verified 12/31/21 14:03 Antibiotics) - Past Medical History Past Medical History: Yes Neurological History: No Pertinent History ENT History: No Pertinent History Cardiac History: High Cholesterol, Hypertension Respiratory History: COPD Endocrine Medical History: Diabetes Type II Musculoskelatal History: No Pertinent History GI Medical History: GERD History: Dialysis Pyscho-Social History: Other Male Reproductive Disorders: No Pertinent History Comment: schizo - Past Surgical History Past Surgical History: Yes Neuro Surgical History: No Pertinent History Cardiac History: No Pertinent History Respiratory Surgery: No Pertinent History GI Surgical History: Appendectomy, Cholecystectomy, Hernia Repair Genitourinary Surgical Hx: No Pertinent History Musculskeletal Surgical Hx: Orthopedic Surgery Male Surgical History: Vasectomy Other Surgical History: left knee, right knee, bilateral carpal tunnel - Social History Smoking Status: Current every day smoker How long have you smoked: several ye Exposure to second hand smoke: No Alcohol: Rarely Drug Use: marijuana - Physical Exam Vital Signs: Vital Signs - 24 hr Temp Pulse Resp BP Pulse Ox 01/01/22 12:00 97.1 F 73 13 184/91 96 01/01/22 08:00 97.5 F 81 7 L 168/76 94 L 01/01/22 04:37 97.3 F 82 20 183/86 93 L 01/01/22 03:43 98 01/01/22 03:36 77 16 147/83 95 01/01/22 03:00 77 10 L 151/94 95 01/01/22 02:00 74 193/104 94 L 01/01/22 01:00 74 178/97 94 L 01/01/22 00:00 74 160/102 93 L 12/31/21 23:00 68 18 168/87 98 12/31/21 21:00 83 133/95 95 12/31/21 19:28 95 12/31/21 19:27 79 16 168/108 95 12/31/21 18:50 80 18 164/89 98 12/31/21 18:14 88 20 188/110 98 12/31/21 17:28 86 18 189/109 98 12/31/21 15:54 70 18 98 12/31/21 14:15 98 12/31/21 14:00 96 12/31/21 13:58 97.0 F 78 16 176/102 98 General Appearance: mild distress, lethargy Neurologic Exam: alert, oriented x 3, cooperative Eye Exam: scleral icterus Ears, Nose, Throat Exam: moist mucous membranes Neck Exam: normal inspection Respiratory Exam: diminished breath sounds (bases) Cardiovascular Exam: regular rate/rhythm Gastrointestinal/Abdomen Exam: soft (nontender), other (Left lower abd with peritoneal dialysis catheter present.) Extremity Exam: normal inspection Skin Exam: other (skin color darkened) Results - Labs Lab/Micro Results: Lab Results-Last 24 Hours 12/31/21 12/31/21 12/31/21 Range/Units 00:12 14:36 14:36 WBC 8.4 (4.0-10.5) x10^3/uL RBC 4.14 (4.1-5.6) x10^6/uL Hgb 11.9 L (12.5-18.0) g/dL Hct 36.7 L (42-50) % MCV 88.6 (78-100) fL MCH 28.7 (26-32) pg MCHC 32.4 (32-36) g/dL RDW 14.2 H (11.5-14.0) % Plt Count 276 (150-450) x10^3/uL MPV 8.9 (7.5-11.0) fL Gran % 81.6 H (36.0-66.0) % Immature Gran % (Auto) 0.5 H (0.00-0.4) % Nucleat RBC Rel Count 0.0 (0.00-0.1) % Eos # (Auto) 0.16 (0-0.5) x10^3/uL Immature Gran # (Auto) 0.04 H (0.00-0.03) x10^3u/L Absolute Lymphs (auto) 0.56 L (1.0-4.6) x10^3/uL Absolute Monos (auto) 0.71 (0.0-1.3) x10^3/uL Absolute Nucleated RBC 0.00 (0.00-0.01) x10^3u/L Lymphocytes % 6.7 L (24.0-44.0) % Monocytes % 8.5 (0.0-12.0) % Eosinophils % 1.9 (0.00-5.0) % Basophils % 0.8 (0.0-0.4) % Absolute Granulocytes 6.81 (1.4-6.9) x10^3/uL Basophils # 0.07 (0-0.4) x10^3/uL Sodium 131 L (137-145) mmol/L Potassium 3.0 L* (3.5-5.1) mmol/L Chloride 94 L (98-107) mmol/L Carbon Dioxide 29 (22-30) mmol/L Anion Gap 10.4 (5-15) MEQ/L BUN 42 H (9-20) mg/dL Creatinine 8.17 H (0.66-1.25) mg/dL Estimated GFR 7.3 ML/MIN Glucose 144 H (74-106) mg/dL POC Glucometer (74 to 106) mg/dL Calcium 7.8 L (8.4-10.2) mg/dL Total Bilirubin 0.50 (0.2-1.3) mg/dL AST 28 (17-59) U/L ALT 18 (0-50) U/L Alkaline Phosphatase 86 (38-126) U/L Troponin I 0.163 H* (0.000-0.034) ng/mL Serum Total Protein 5.2 L (6.3-8.2) g/dL Albumin 2.3 L (3.5-5.0) g/dL Prealbumin (17.6-36.0) mg/dL Influenza Type A Ag (NEGATIVE) Influenza Type B Ag (NEGATIVE) RSV (PCR) (Negative) SARS-CoV-2 (PCR) (NEGATIVE) Slides for Path Review YES 12/31/21 12/31/21 12/31/21 Range/Units 14:36 14:42 17:04 WBC (4.0-10.5) x10^3/uL RBC (4.1-5.6) x10^6/uL Hgb (12.5-18.0) g/dL Hct (42-50) % MCV (78-100) fL MCH (26-32) pg MCHC (32-36) g/dL RDW (11.5-14.0) % Plt Count (150-450) x10^3/uL MPV (7.5-11.0) fL Gran % (36.0-66.0) % Immature Gran % (Auto) (0.00-0.4) % Nucleat RBC Rel Count (0.00-0.1) % Eos # (Auto) (0-0.5) x10^3/uL Immature Gran # (Auto) (0.00-0.03) x10^3u/L Absolute Lymphs (auto) (1.0-4.6) x10^3/uL Absolute Monos (auto) (0.0-1.3) x10^3/uL Absolute Nucleated RBC (0.00-0.01) x10^3u/L Lymphocytes % (24.0-44.0) % Monocytes % (0.0-12.0) % Eosinophils % (0.00-5.0) % Basophils % (0.0-0.4) % Absolute Granulocytes (1.4-6.9) x10^3/uL Basophils # (0-0.4) x10^3/uL Sodium (137-145) mmol/L Potassium (3.5-5.1) mmol/L Chloride (98-107) mmol/L Carbon Dioxide (22-30) mmol/L Anion Gap (5-15) MEQ/L BUN (9-20) mg/dL Creatinine (0.66-1.25) mg/dL Estimated GFR ML/MIN Glucose (74-106) mg/dL POC Glucometer (74 to 106) mg/dL Calcium (8.4-10.2) mg/dL Total Bilirubin (0.2-1.3) mg/dL AST (17-59) U/L ALT (0-50) U/L Alkaline Phosphatase (38-126) U/L Troponin I 0.153 H* 0.162 H* (0.000-0.034) ng/mL Serum Total Protein (6.3-8.2) g/dL Albumin (3.5-5.0) g/dL Prealbumin (17.6-36.0) mg/dL Influenza Type A Ag NEGATIVE (NEGATIVE) Influenza Type B Ag NEGATIVE (NEGATIVE) RSV (PCR) NEGATIVE (Negative) SARS-CoV-2 (PCR) NEGATIVE (NEGATIVE) Slides for Path Review 12/31/21 01/01/22 01/01/22 Range/Units 20:50 03:58 06:45 WBC (4.0-10.5) x10^3/uL RBC (4.1-5.6) x10^6/uL Hgb (12.5-18.0) g/dL Hct (42-50) % MCV (78-100) fL MCH (26-32) pg MCHC (32-36) g/dL RDW (11.5-14.0) % Plt Count (150-450) x10^3/uL MPV (7.5-11.0) fL Gran % (36.0-66.0) % Immature Gran % (Auto) (0.00-0.4) % Nucleat RBC Rel Count (0.00-0.1) % Eos # (Auto) (0-0.5) x10^3/uL Immature Gran # (Auto) (0.00-0.03) x10^3u/L Absolute Lymphs (auto) (1.0-4.6) x10^3/uL Absolute Monos (auto) (0.0-1.3) x10^3/uL Absolute Nucleated RBC (0.00-0.01) x10^3u/L Lymphocytes % (24.0-44.0) % Monocytes % (0.0-12.0) % Eosinophils % (0.00-5.0) % Basophils % (0.0-0.4) % Absolute Granulocytes (1.4-6.9) x10^3/uL Basophils # (0-0.4) x10^3/uL Sodium (137-145) mmol/L Potassium 3.7 D (3.5-5.1) mmol/L Chloride (98-107) mmol/L Carbon Dioxide (22-30) mmol/L Anion Gap (5-15) MEQ/L BUN (9-20) mg/dL Creatinine (0.66-1.25) mg/dL Estimated GFR ML/MIN Glucose (74-106) mg/dL POC Glucometer (74 to 106) mg/dL Calcium (8.4-10.2) mg/dL Total Bilirubin (0.2-1.3) mg/dL AST (17-59) U/L ALT (0-50) U/L Alkaline Phosphatase (38-126) U/L Troponin I 0.163 H* 0.165 H* (0.000-0.034) ng/mL Serum Total Protein (6.3-8.2) g/dL Albumin (3.5-5.0) g/dL Prealbumin (17.6-36.0) mg/dL Influenza Type A Ag (NEGATIVE) Influenza Type B Ag (NEGATIVE) RSV (PCR) (Negative) SARS-CoV-2 (PCR) (NEGATIVE) Slides for Path Review 01/01/22 01/01/22 01/01/22 Range/Units 07:38 09:13 12:11 WBC 8.6 (4.0-10.5) x10^3/uL RBC 3.88 L (4.1-5.6) x10^6/uL Hgb 11.4 L (12.5-18.0) g/dL Hct 34.8 L (42-50) % MCV 89.7 (78-100) fL MCH 29.4 (26-32) pg MCHC 32.8 (32-36) g/dL RDW 14.1 H (11.5-14.0) % Plt Count 265 (150-450) x10^3/uL MPV 8.5 (7.5-11.0) fL Gran % 74.0 H (36.0-66.0) % Immature Gran % (Auto) 0.6 H (0.00-0.4) % Nucleat RBC Rel Count 0.0 (0.00-0.1) % Eos # (Auto) 0.24 (0-0.5) x10^3/uL Immature Gran # (Auto) 0.05 H (0.00-0.03) x10^3u/L Absolute Lymphs (auto) 1.03 (1.0-4.6) x10^3/uL Absolute Monos (auto) 0.86 (0.0-1.3) x10^3/uL Absolute Nucleated RBC 0.00 (0.00-0.01) x10^3u/L Lymphocytes % 11.9 L (24.0-44.0) % Monocytes % 10.0 (0.0-12.0) % Eosinophils % 2.8 (0.00-5.0) % Basophils % 0.7 (0.0-0.4) % Absolute Granulocytes 6.38 (1.4-6.9) x10^3/uL Basophils # 0.06 (0-0.4) x10^3/uL Sodium (137-145) mmol/L Potassium (3.5-5.1) mmol/L Chloride (98-107) mmol/L Carbon Dioxide (22-30) mmol/L Anion Gap (5-15) MEQ/L BUN (9-20) mg/dL Creatinine (0.66-1.25) mg/dL Estimated GFR ML/MIN Glucose (74-106) mg/dL POC Glucometer 90 (74 to 106) mg/dL Calcium (8.4-10.2) mg/dL Total Bilirubin (0.2-1.3) mg/dL AST (17-59) U/L ALT (0-50) U/L Alkaline Phosphatase (38-126) U/L Troponin I (0.000-0.034) ng/mL Serum Total Protein (6.3-8.2) g/dL Albumin (3.5-5.0) g/dL Prealbumin 30.66 (17.6-36.0) mg/dL Influenza Type A Ag (NEGATIVE) Influenza Type B Ag (NEGATIVE) RSV (PCR) (Negative) SARS-CoV-2 (PCR) (NEGATIVE) Slides for Path Review 01/01/22 01/01/22 Range/Units 12:12 12:26 WBC (4.0-10.5) x10^3/uL RBC (4.1-5.6) x10^6/uL Hgb (12.5-18.0) g/dL Hct (42-50) % MCV (78-100) fL MCH (26-32) pg MCHC (32-36) g/dL RDW (11.5-14.0) % Plt Count (150-450) x10^3/uL MPV (7.5-11.0) fL Gran % (36.0-66.0) % Immature Gran % (Auto) (0.00-0.4) % Nucleat RBC Rel Count (0.00-0.1) % Eos # (Auto) (0-0.5) x10^3/uL Immature Gran # (Auto) (0.00-0.03) x10^3u/L Absolute Lymphs (auto) (1.0-4.6) x10^3/uL Absolute Monos (auto) (0.0-1.3) x10^3/uL Absolute Nucleated RBC (0.00-0.01) x10^3u/L Lymphocytes % (24.0-44.0) % Monocytes % (0.0-12.0) % Eosinophils % (0.00-5.0) % Basophils % (0.0-0.4) % Absolute Granulocytes (1.4-6.9) x10^3/uL Basophils # (0-0.4) x10^3/uL Sodium 128 L (137-145) mmol/L Potassium 3.4 L (3.5-5.1) mmol/L Chloride 93 L (98-107) mmol/L Carbon Dioxide 30 (22-30) mmol/L Anion Gap 8.6 (5-15) MEQ/L BUN 46 H (9-20) mg/dL Creatinine 8.20 H (0.66-1.25) mg/dL Estimated GFR 7.3 ML/MIN Glucose 126 H (74-106) mg/dL POC Glucometer 178 H (74 to 106) mg/dL Calcium 7.8 L (8.4-10.2) mg/dL Total Bilirubin 0.50 (0.2-1.3) mg/dL AST 25 (17-59) U/L ALT 16 (0-50) U/L Alkaline Phosphatase 77 (38-126) U/L Troponin I (0.000-0.034) ng/mL Serum Total Protein 4.7 L (6.3-8.2) g/dL Albumin 2.1 L (3.5-5.0) g/dL Prealbumin (17.6-36.0) mg/dL Influenza Type A Ag (NEGATIVE) Influenza Type B Ag (NEGATIVE) RSV (PCR) (Negative) SARS-CoV-2 (PCR) (NEGATIVE) Slides for Path Review - Radiology Impressions Radiology Exams & Impressions: Radiology Procedures Category Date Time Status HEAD WITHOUT CONTRAST [CT] Stat Exams 12/31/21 14:29 Completed Assessment/Plan (1) Dizziness Current Visit: Yes Status: Acute Assessment & Plan: abnormal CT head right cerebellar hypodensity Code(s): R42 - DIZZINESS AND GIDDINESS (2) Fall Current Visit: Yes Status: Acute Qualifiers: Encounter type: initial encounter Qualified Code(s): W19.XXXA - Unspecified fall, initial encounter Assessment & Plan: fall due to dizziness Code(s): W19.XXXA - UNSPECIFIED FALL, INITIAL ENCOUNTER (3) Elevated troponin Current Visit: Yes Status: Acute Assessment & Plan: no chest pain or EKG changes Code(s): R77.8 - OTHER SPECIFIED ABNORMALITIES OF PLASMA PROTEINS (4) Hypertension Current Visit: Yes Status: Acute Assessment & Plan: see med orders /parameters Code(s): I10 - ESSENTIAL (PRIMARY) HYPERTENSION (5) Hypokalemia Current Visit: Yes Status: Acute Assessment & Plan: IV k-rider and monitor Code(s): E87.6 - HYPOKALEMIA (6) End stage kidney disease Current Visit: Yes Status: Acute Code(s): N18.6 - END STAGE RENAL DISEASE (7) Schizophrenia Current Visit: Yes Status: Chronic Assessment & Plan: is on high dose Seroquel Code(s): F20.9 - SCHIZOPHRENIA, UNSPECIFIED
--- NOTE | 2022-01-01 15:34 | PCM.DCORD ---
- Discharge Disposition: DC TO [facility] Condition: Fair Prescriptions: No Action Duloxetine HCl 60 mg PO BID Quetiapine Fumarate [Seroquel] 900 mg PO HS Esomeprazole Magnesium [Nexium] 40 mg PO DAILY Labetalol HCl 200 mg PO TID Hydralazine HCl 50 mg PO TID Furosemide 40 mg [Lasix 40 MG] 40 mg PO BID Folic Acid 400 mcg PO DAILY Aspirin EC 81 mg [Ecotrin 81 mg] 81 mg PO DAILY Amlodipine Besylate 5 mg [Norvasc 5 mg] 10 mg PO DAILY Atorvastatin Calcium 20 mg PO HS Fluticasone/Salmeterol [Advair 250-50 Diskus] 1 each IH BID Albuterol Sulfate [Albuterol Sulfate Hfa] 2 inh IH Q4-6HPRN PRN PRN Reason: Shortness Of Breath/Wheezing Levalbuterol Tartrate [Levalbuterol Tartrate Hfa] 15 gm IH Q6H PRN PRN PRN Reason: Shortness Of Breath/Wheezing Potassium Chloride Tab* [Klor Con] 10 meq PO BID #2 tab Forms: Ambulance Transport Record, Transfer Record Inter-Agency
[2022-01-01 16:56] VITALS: BP 187/89; PULSE 72
[2022-01-01] MEDS ORDERED: Trandate 100 MG PO ONE (22:45)
== END 2022-01-01 17:30 | disposition home or self-care (01) ==
LOC: ED 13:53 → MED SURG 01-01 04:07
PROVIDERS: ADMIT Family Medicine; ATTEND Family Medicine
DX: R42 Dizziness and giddiness (principal); N18.6 End stage renal disease; W19.XXXA Unspecified fall, initial encounter; R77.8 Other specified abnormalities of plasma proteins; I10 Essential (primary) hypertension; E87.6 Hypokalemia; E11.9 Type 2 diabetes mellitus without complications; F20.9 Schizophrenia, unspecified; J44.9 Chronic obstructive pulmonary disease, unspecified; Z72.0 Tobacco use; Z20.828 Contact with and (suspected) exposure to other viral communicable diseases; Z79.899 Other long term (current) drug therapy
CPT/HCPCS: 0241U; 36000; 36415; 70450; 80053; 82947; 84132; 84134; 84484; 85025; 93005; 93268; 94760; 96360; 96361; 96365; 96375; 96376; 99285; 99291; G0378; J0360; J2270; J2405; J3480; A9270-GY

== ENCOUNTER 2022-01-16 14:56 | Emergency (ER) | payer MEDICARE ==
[2022-01-16 16:07] LABS: Absolute Neutrophil Ct (ANC) 7.72 x10^3/uL (1.4-6.9); Eosinophil % 4.4 % (0.00-5.0); Eosinophil (Absolute #) 0.47 x10^3/uL (0-0.5); Hematocrit 34.2 % (42-50); Hemoglobin 10.9 g/dL (12.5-18.0); Lymphocyte (Absolute #) 1.46 x10^3/uL (1.0-4.6); Lymphocytes % 13.8 % (24.0-44.0); Mean Cell Volume 90.5 fL (78-100); Mean Corpuscular Hemoglobin 28.8 pg (26-32); Mean Corpuscular Hgb Concent. 31.9 g/dL (32-36); Mean Platelet Volume 9.4 fL (7.5-11.0); Monocytes % 7.5 % (0.0-12.0); Neutrophil % 72.9 % (36.0-66.0); Platelet Count 255 x10^3/uL (150-450); Red Blood Count 3.78 x10^6/uL (4.1-5.6); Red Cell Distribution Width 14.6 % (11.5-14.0); White Blood Count 10.6 x10^3/uL (4.0-10.5)
[2022-01-16 16:21] LABS: ALBUMIN 2.4 g/dL (3.5-5.0); ANION GAP 11.2 MEQ/L (5-15); BILIRUBIN,TOTAL 0.5 mg/dL (0.2-1.3); Creatinine 1 6.99 mg/dL (0.66-1.25); EST GLOMERULAR FILTRATION RATE 8.8 ML/MIN; Potassium 3.8 mmol/L (3.5-5.1); Total Protein 5.6 g/dL (6.3-8.2)
--- NOTE | 2022-01-16 16:26 | ERPHSYRPT ---
- History of Present Illness Time Seen by Provider: 01/16/22 15:00 Source: patient, EMS Exam Limitations: no limitations Patient Subjective Stated Complaint: C/O weakness and nausea X 3 days. States he has not vomited today but did vomit yesterday. Triage Nursing Assessment: Patient brought into the ED by ambulance. He is alert and oriented. Some jaundice noted. No SOB. Dialysis catheter noted to LLQ of abdomen for peritoneal dialysis. Small scabbed over abrasion to LLE and a skin tear to right elbow. Physician History: 56 years old male with multiple medical problems including end-stage renal disease on peritoneal dialysis, hypertension, hyperlipidemia, tobacco abuse, recent stroke with bilateral visual deficit and right lower extremity numbness presented in the ER with gradually increasing generalized weakness fatigue tiredness for 2 days and also having a blind spot in the right visual field. This has been going on for 2 days and progressively worsening. He is also complaining of bilateral flank and back pain moderate intensity sharp nature without any significant aggravating or relieving factors and denies associated vomiting but does have some nausea. No fever or chills reported. Denies any ne w focal numbness or weakness. Timing/Duration: day(s) (2), gradual onset, worse Severity: moderate Character of Deficits: vision problems Deficits: off balance Baseline/Normal Cognition: alert oriented x 3 Current Cognition: alert oriented x 3 Baseline Gait: uses walker Associated Symptoms: vision changes, No headache Allergies/Adverse Reactions: Sulfa (Sulfonamide Antibiotics) Allergy (Verified 01/16/22 14:59) Home Medications: Duloxetine HCl 60 mg PO BID 09/08/16 [History] Esomeprazole Magnesium [Nexium] 40 mg PO DAILY 09/08/16 [History] Quetiapine Fumarate [Seroquel] 900 mg PO HS 09/08/16 [History] Amlodipine Besylate 5 mg [Norvasc 5 mg] 10 mg PO DAILY 01/24/21 [History] Aspirin EC 81 mg [Ecotrin 81 mg] 81 mg PO DAILY 01/24/21 [History] Atorvastatin Calcium 20 mg PO HS 01/24/21 [History] Folic Acid 400 mcg PO DAILY 01/24/21 [History] Furosemide 40 mg [Lasix 40 MG] 40 mg PO BID 01/24/21 [History] Fluticasone/Salmeterol [Advair 250-50 Diskus] 1 each IH BID 02/22/21 [History] Clopidogrel Bisulfate [PLAVIX Tablet] 1 tab PO DAILY 01/16/22 [History] Meclizine HCl 25 mg [Antivert 25 mg] 1 tab PO BID 01/16/22 [History] Ropinirole HCl 1 tab PO HS 01/16/22 [History] carvediloL [Carvedilol] 1 tab PO BID 01/16/22 [History] Hx Tetanus, Diphtheria Vaccination/Date Given: Yes Hx Influenza Vaccination/Date Given: No Hx Pneumococcal Vaccination/Date Given: Yes Immunizations Up to Date: Yes Travel Risk - International Travel Have you traveled outside of the country in past 3 weeks: No - Coronavirus Screening Are you exhibiting any of the following symptoms?: Yes Symptoms: Vomiting/Diarrhea, Headaches/Body Aches/Fatigue Close contact with a COVID-19 positive Pt in past 14-21 Days: No - Vaccine Status Have you recieved a Covid-19 vaccination: Yes Sr. [employer]chandise [employer]: [employer] - Vaccination Dates Date of 2cond Vaccination (if applicable): Unknown - Review of Systems Constitutional: Fatigue, Weakness Eyes: Vision Changes Ears, Nose, & Throat: No Symptoms Respiratory: No Symptoms Cardiac: No Symptoms Abdominal/Gastrointestinal: Abdominal Pain Genitourinary Symptoms: Flank Pain Musculoskeletal: Back Pain Skin: No Symptoms Neurological: Sensory Changes Psychological: No Symptoms Endocrine: No Symptoms Hematologic/Lymphatic: No Symptoms Immunological/Allergic: No Symptoms - Past Medical History Pertinent Past Medical History: Yes Neurological History: Stroke ENT History: No Pertinent History Cardiac History: High Cholesterol, Hypertension Respiratory History: COPD Endocrine Medical History: Diabetes Type II, Liver Disease Musculoskeletal History: No Pertinent History GI Medical History: GERD, Gallbladder Disease History: Dialysis, Renal Disease Psycho-Social History: Depression, Other Male Reproductive Disorders: No Pertinent History Other Medical History: schizophrenia, RLS - Past Surgical History Past Surgical History: Yes Neuro Surgical History: No Pertinent History Cardiac: No Pertinent History Respiratory: No Pertinent History Gastrointestinal: Appendectomy, Cholecystectomy, Hernia Repair Genitourinary: No Pertinent History Musculoskeletal: Orthopedic Surgery Male Surgical History: Vasectomy Other Surgical History: left knee, right knee, bilateral carpal tunnel, peritoneal dialysis catheter placement in [facility] - Social History Smoking Status: Current every day smoker How long have you smoked: 40 YEARS Exposure to second hand smoke: No Drug Use: marijuana Patient Lives Alone: Yes - Nursing Vital Signs Nursing Vital Signs: Initial Vital Signs Temperature 97.7 F 01/16/22 14:59 Pulse Rate 85 01/16/22 14:59 Respiratory Rate 18 01/16/22 14:59 Blood Pressure 145/91 01/16/22 14:59 O2 Sat by Pulse Oximetry 99 01/16/22 14:59 Pain Scale Pain Intensity 8 - [place] Coma Scale Best Eye Response (Leslie): (4) open spontaneously Best Verbal Response (Leslie): (5) oriented Best Motor Response (Leslie): (6) obeys commands Leslie Total: 15 - Physical Exam General Appearance: no apparent distress, alert Eye Exam: bilateral eye: normal inspection, PERRL, EOMI, vision changes Ears, Nose, Throat Exam: normal ENT inspection, TMs normal, pharynx normal Neck Exam: normal inspection, non-tender, supple, full range of motion Respiratory: normal breath sounds, lungs clear Cardiovascular: regular rate/rhythm, normal heart sounds Gastrointestinal: soft, normal bowel sounds, tenderness (Mid abdomen. PD catheter well in place) Extremity Exam: normal inspection, normal range of motion, pelvis stable Mental Status: alert, oriented x 3, cooperative support representative Exam: normal hearing, normal speech, PERRL, No facial asymmetry Coordination/Gait: normal finger to nose, normal cerebellar function Motor/Sensory: no motor deficit, sensory deficit (Decreased sensation of fine touch in left anatomical snuffbox area and right lower extremity) Skin Exam: normal color SpO2 Interpretation: normal SpO2: 95 O2 Delivery: Room Air - Course EKG Interpreted by Me: RATE (84), Sinus Rhythm, NORMAL AXIS, prolonged QT interval, Q-wave (Inferior), Other (LVH,) Ordered Tests: Active Orders 24 hr Category Date Time Status Meeting Facilitator STAT Care 01/16/22 15:48 Active EKG-ER Only STAT Care 01/16/22 15:47 Active IV Insertion STAT Care 01/16/22 15:47 Active NPO (ED) STAT Care 01/16/22 15:47 Active Tele-Health Consult ROUTINE Cons 01/16/22 18:50 Active ABDOMEN AND PELVIS W/0 CONTRAS [CT] Stat Exams 01/16/22 16:19 Completed CHEST 1 VIEW (PORTABLE) Stat Exams 01/16/22 15:47 Completed HEAD WITHOUT CONTRAST [CT] Stat Exams 01/16/22 15:47 Completed BLOOD CULTURE Stat Lab 01/16/22 16:03 Received CBC W DIFF Stat Lab 01/16/22 15:58 Completed CMP Stat Lab 01/16/22 15:58 Completed Lactic Acid Stat Lab 01/16/22 15:48 Completed TROPONIN Q3H Lab 01/16/22 15:58 Completed TROPONIN Q3H Lab 01/16/22 19:26 Received TROPONIN Q3H Lab 01/16/22 22:00 Ordered TROPONIN Q3H Lab 01/17/22 01:00 Ordered TROPONIN Q3H Lab 01/17/22 04:00 Ordered UA W/RFX CULTURE Stat Lab 01/16/22 Ordered Medication Summary Discontinued Medications Generic Name Dose Route Start Last Admin Trade Name Alexx PRN Reason Stop Dose Admin Aspirin 324 mg 01/16/22 19:14 01/16/22 19:26 Aspirin 81 Mg Tab.Chew PO 01/16/22 19:15 324 mg STAT ONE Administration Hydralazine HCl 10 mg 01/16/22 20:03 01/16/22 20:10 Hydralazine Hcl 20 Mg/Ml Vial IV 01/16/22 20:04 Not Given STAT ONE Hydralazine HCl Confirm 01/16/22 20:05 Hydralazine Hcl 20 Mg/Ml Vial Administered 01/16/22 20:06 Dose 20 mg .ROUTE .STK-MED ONE Morphine Sulfate 4 mg 01/16/22 16:56 01/16/22 17:02 Morphine Sulfate 4 Mg/Ml Injection IV 01/16/22 16:57 4 mg STAT ONE Administration Morphine Sulfate Confirm 01/16/22 17:01 Morphine Sulfate 4 Mg/Ml Injection Administered 01/16/22 17:02 Dose 4 mg .ROUTE .STK-MED ONE Morphine Sulfate 4 mg 01/16/22 20:01 01/16/22 20:06 Morphine Sulfate 4 Mg/Ml Injection IV 01/16/22 20:02 4 mg STAT ONE Administration Morphine Sulfate Confirm 01/16/22 20:05 Morphine Sulfate 4 Mg/Ml Injection Administered 01/16/22 20:06 Dose 4 mg .ROUTE .STK-MED ONE Lab/Rad Data: Laboratory Result Diagrams 01/16/22 15:58 01/16/22 15:58 Laboratory Results 07/31/22 07/31/22 07/31/22 Range/Units 15:58 15:58 15:58 WBC 10.6 H (4.0-10.5) x10^3/uL RBC 3.78 L (4.1-5.6) x10^6/uL Hgb 10.9 L (12.5-18.0) g/dL Hct 34.2 L (42-50) % MCV 90.5 (78-100) fL MCH 28.8 (26-32) pg MCHC 31.9 L (32-36) g/dL RDW 14.6 H (11.5-14.0) % Plt Count 255 (150-450) x10^3/uL MPV 9.4 (7.5-11.0) fL Gran % 72.9 H (36.0-66.0) % Immature Gran % (Auto) 0.5 H (0.00-0.4) % Nucleat RBC Rel Count 0.0 (0.00-0.1) % Eos # (Auto) 0.47 (0-0.5) x10^3/uL Immature Gran # (Auto) 0.05 H (0.00-0.03) x10^3u/L Absolute Lymphs (auto) 1.46 (1.0-4.6) x10^3/uL Absolute Monos (auto) 0.80 (0.0-1.3) x10^3/uL Absolute Nucleated RBC 0.00 (0.00-0.01) x10^3u/L Lymphocytes % 13.8 L (24.0-44.0) % Monocytes % 7.5 (0.0-12.0) % Eosinophils % 4.4 (0.00-5.0) % Basophils % 0.9 (0.0-0.4) % Absolute Granulocytes 7.72 H (1.4-6.9) x10^3/uL Basophils # 0.10 (0-0.4) x10^3/uL Sodium 134 L (137-145) mmol/L Potassium 3.8 (3.5-5.1) mmol/L Chloride 97 L (98-107) mmol/L Carbon Dioxide 29 (22-30) mmol/L Anion Gap 11.2 (5-15) MEQ/L BUN 40 H (9-20) mg/dL Creatinine 6.99 H (0.66-1.25) mg/dL Estimated GFR 8.8 ML/MIN Glucose 90 (74-106) mg/dL Lactic Acid (0.4-2.0) Calcium 8.0 L (8.4-10.2) mg/dL Total Bilirubin 0.50 (0.2-1.3) mg/dL AST 24 (17-59) U/L ALT 14 (0-50) U/L Alkaline Phosphatase 85 (38-126) U/L Troponin I 0.121 H* (0.000-0.034) ng/mL Serum Total Protein 5.6 L (6.3-8.2) g/dL Albumin 2.4 L (3.5-5.0) g/dL 01/16/22 Range/Units 15:48 WBC (4.0-10.5) x10^3/uL RBC (4.1-5.6) x10^6/uL Hgb (12.5-18.0) g/dL Hct (42-50) % MCV (78-100) fL MCH (26-32) pg MCHC (32-36) g/dL RDW (11.5-14.0) % Plt Count (150-450) x10^3/uL MPV (7.5-11.0) fL Gran % (36.0-66.0) % Immature Gran % (Auto) (0.00-0.4) % Nucleat RBC Rel Count (0.00-0.1) % Eos # (Auto) (0-0.5) x10^3/uL Immature Gran # (Auto) (0.00-0.03) x10^3u/L Absolute Lymphs (auto) (1.0-4.6) x10^3/uL Absolute Monos (auto) (0.0-1.3) x10^3/uL Absolute Nucleated RBC (0.00-0.01) x10^3u/L Lymphocytes % (24.0-44.0) % Monocytes % (0.0-12.0) % Eosinophils % (0.00-5.0) % Basophils % (0.0-0.4) % Absolute Granulocytes (1.4-6.9) x10^3/uL Basophils # (0-0.4) x10^3/uL Sodium (137-145) mmol/L Potassium (3.5-5.1) mmol/L Chloride (98-107) mmol/L Carbon Dioxide (22-30) mmol/L Anion Gap (5-15) MEQ/L BUN (9-20) mg/dL Creatinine (0.66-1.25) mg/dL Estimated GFR ML/MIN Glucose (74-106) mg/dL Lactic Acid 0.9 (0.4-2.0) Calcium (8.4-10.2) mg/dL Total Bilirubin (0.2-1.3) mg/dL AST (17-59) U/L ALT (0-50) U/L Alkaline Phosphatase (38-126) U/L Troponin I (0.000-0.034) ng/mL Serum Total Protein (6.3-8.2) g/dL Albumin (3.5-5.0) g/dL - Progress Progress: unchanged Progress Note: 01/16/22 19:34 56-year-old is evaluated for worsening visual symptoms and generalized weakness. EKG showed sinus rhythm without any ST elevation. Chest x-ray no acute cardiopulmonary findings. CT head showed right cerebellar subacute stroke con sistent with comparison to 12/31/2021 exam. Also has a small lacunar infarct in the anterior limb of left internal capsule which is also seen on the exam 2 weeks ago. Patient has elevated troponin 0.12, given aspirin. He denies any chest pain or difficulty breathing. I believe it is secondary to his renal cause. Need to trend cardiac enzymes. Patient is on peritoneal dialysis. Telemetry neuro consult is obtained which recommended stroke work-up including MRI and MRAs. Discussed with Dr. Reynolds who do not feel comfortable keeping this patient in here. Discussed with [facility] and no neuro services are available and patient cannot be accepted there. Discussed with Dr. Akers at [facility], reviewed history, work-up and neuro recommendations and patient is excepted for transfer. Patient is not a candidate for any immediate intervention at present. Plan discussed with patient who understand and agrees with it. Discussed with .: [place], Other (Dr. Akers [facility] ER) Will see patient in: ED Counseled pt/family regarding: lab results, diagnosis, rad results, smoking cessation - Departure Departure Disposition: Transfer Clinical Impression: CVA (cerebral vascular accident), Elevated troponin Condition: Stable Critical Care Time: Yes Critical Care Time(excluding separately billable procedures): Critical 30-74 m ins Referrals: PREMA PRINGLE, PSYCHIATRIC CLINICIAN [Primary Care Provider] - Follow up/PCP as directed
[2022-01-16] MEDS ORDERED: MORPHINE SULFATE 4 MG INJ IV ONE ×2 (16:56→20:01)
[2022-01-16] MEDS ORDERED: MORPHINE SULFATE 4 MG INJ ONE ×2 (17:01→20:05)
[2022-01-16] MEDS ORDERED: BABY ASPIRIN 81 MG CHEW PO ONE (19:14)
[2022-01-16 19:38] VITALS: O2SAT 95
[2022-01-16] MEDS ORDERED: APRESOLINE 20 MG/ML INJ IV ONE (20:03)
[2022-01-16 20:05] LABS: INFLUENZA A NEGATIVE (NEGATIVE); INFLUENZA B NEGATIVE (NEGATIVE); RESPIRATORY SYNCTIAL VIRUS NEGATIVE (Negative); SARS-CoV-2 Xpert Express NEGATIVE (NEGATIVE)
[2022-01-16] MEDS ORDERED: APRESOLINE 20 MG/ML INJ ONE (20:05)
--- NOTE | 2022-01-16 20:07 | XRAY ---
Indication: General weakness. Blurred vision. Multiple contiguous axial images obtained through the head without contrast. Comparison: December 31, 2021 Again age-appropriate global atrophy, mild periventricular degenerative micro-ischemia, and remote lacunar infarct left internal capsule. Right cerebellum again demonstrates small subtle focus of hypodensity concerning for ischemia. No acute intracranial hemorrhage, abnormal extra-axial fluid collection, or mass effect. Fourth ventricle is midline without hydrocephalus. Bony calvarium intact. Again mild mucosal thickening right maxillary sinus. Impression: Stable CT head without contrast exam again demonstrating small right cerebellum hypodensity concerning for ischemia. Also stable atrophy, degenerative micro-ischemia, remote lacunar infarct left internal capsule, and right maxillary sinus disease. Comment: Preliminary interpretation made by [facility]. No critical discrepancy.
--- NOTE | 2022-01-16 20:11 | XRAY ---
Indication: Bilateral flank pain. Multiple contiguous images obtained through the abdomen and pelvis without contrast. Comparison: January 19, 2011 Lung bases demonstrates new small bibasilar effusions with compressive atelectasis, left greater than right. Heart not enlarged Noncontrasted stomach and bowel loops nonobstructed again with appendectomy and cholecystectomy. Both kidneys are now mildly atrophic. Left lower quadrant demonstrates new peritoneal dialysis catheter with the tip coiled in the pelvis. Small abdomen/pelvic free fluid presumed related. No free air. Remaining liver, pancreas, spleen, adrenal glands, kidneys, ureters, and bladder are unremarkable for noncontrast exam. Progressive worsening heavy scattered vascular calcifications including both renal arteries. No AAA. Osseous structures intact with mild degenerative changes throughout the spine. No ventral or inguinal hernias. Impression: 1. New bibasilar effusion/atelectasis without cardiomegaly. 2. New left lower quadrant peritoneal dialysis catheter. New small abdomen/pelvic free fluid presumed related. 3. New bilateral renal atrophy. 4. Worsening heavy scattered vascular calcifications including both renal arteries. Comment: Preliminary interpretation made by C. No critical discrepancy.
--- NOTE | 2022-01-16 20:11 | XRAY ---
Indication: Weakness and blurred vision. Comparison: August 21, 2021 Portable chest demonstrates interval worsening moderate bibasilar effusions/atelectasis. Heart not enlarged. Bony thorax intact again with mild osteopenia and degenerative changes.
[2022-01-16 20:25] VITALS: BP 158/96; PULSE 74
== END 2022-01-16 20:15 | disposition short-term general hospital (02) ==
LOC: ED 14:56
DX: I63.9 Cerebral infarction, unspecified (principal); R53.1 Weakness; H53.9 Unspecified visual disturbance; R77.8 Other specified abnormalities of plasma proteins; I21.4 Non-ST elevation (NSTEMI) myocardial infarction; I12.0 Hypertensive chronic kidney disease with stage 5 chronic kidney disease or end stage renal disease; N18.6 End stage renal disease; Z99.2 Dependence on renal dialysis; E11.22 Type 2 diabetes mellitus with diabetic chronic kidney disease; R53.83 Other fatigue; R10.9 Unspecified abdominal pain; R11.0 Nausea; J44.9 Chronic obstructive pulmonary disease, unspecified; Z72.0 Tobacco use; Z79.02 Long term (current) use of antithrombotics/antiplatelets; Z79.899 Other long term (current) drug therapy; Z20.828 Contact with and (suspected) exposure to other viral communicable diseases
CPT/HCPCS: 0241U; 36415; 70450; 71045; 74176; 80053; 83605; 84484; 85025; 87040; 93005; 93041; 96374; 96375; 99284; 99291; J0360; J2270; A9270-GY

== ENCOUNTER 2022-03-11 07:44 | Emergency (ER) | payer MEDICARE ==
[2022-03-11] MEDS ORDERED: Nitrostat 0.4 MG (ED) SL ONE (07:53)
[2022-03-11] MEDS ORDERED: solu-MEDROL 125 MG, Sterile H2O 10 ml 2 ML IV ONE ×2 (07:55)
[2022-03-11] MEDS ORDERED: NITRO-BID 2% UD PACKETS TOP ONE (07:55)
[2022-03-11] MEDS ORDERED: DUONEB 0.5-3 MG/3 ml Neb IH ONE ×2 (07:55→08:02)
[2022-03-11] MEDS ORDERED: MORPHINE SULFATE 4 MG INJ IV ONE (07:56)
[2022-03-11] MEDS ORDERED: Zofran 4 MG/2 ML VIAL IV ONE (07:56)
[2022-03-11] MEDS ORDERED: Zofran 4 MG/2 ML VIAL ONE (08:00)
[2022-03-11] MEDS ORDERED: NITRO-BID 2% UD PACKETS ONE (08:00)
[2022-03-11] MEDS ORDERED: Sterile H2O 10 ml IJ ONE (08:00)
[2022-03-11] MEDS ORDERED: MORPHINE SULFATE 4 MG INJ ONE (08:00)
[2022-03-11] MEDS ORDERED: solu-MEDROL ONE (08:01)
--- NOTE | 2022-03-11 08:02 | ERPHSYRPT ---
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 Patient reports 7/10 intensity is left-sided chest pain nonradiating, without any significant aggravating or relieving factors, associated with shortness of breath and cough productive of clear to yellow sputum. Patient does smoke almost a pack and 1/2 cigarettes daily. Per EMS patient heart rate dropped in the 30s and was diverted to a [facility] rather than going to [facility]. Patient heart rate is in 90s and currently on 2 L with saturation around 99%. EKG sinus rhythm with no ST elevations. Patient is not in any distress, has a blood pressure of 219 systolic. Timing/Duration: yesterday, gradual onset, worse Activities at Onset: rest Quality: sharpness Location: substernal Chest Pain Radiation: no radiation Severity of Pain-Max: moderate Severity of Pain-Current: moderate Modifying Factors: Improves With: nothing Associated Symptoms: shortness of breath, cough, No nausea, No vomiting, No palpitations, No abdominal pain Prior Chest Pain/Cardiac Workup: no prior cardiac workup Nitro Today/Relief: 0.4 mg x 1 Aspirin Treatment Today: provided by EMS Allergies/Adverse Reactions: Sulfa (Sulfonamide Antibiotics) Allergy (Verified 03/11/22 07:54) Home Medications: Duloxetine HCl 60 mg PO BID 09/08/16 [History] Esomeprazole Magnesium [Nexium] 40 mg PO DAILY 09/08/16 [History] Quetiapine Fumarate [Seroquel] 900 mg PO HS 09/08/16 [History] Amlodipine Besylate 5 mg [Norvasc 5 mg] 10 mg PO DAILY 01/24/21 [History] Aspirin EC 81 mg [Ecotrin 81 mg] 81 mg PO DAILY 01/24/21 [History] Atorvastatin Calcium 20 mg PO HS 01/24/21 [History] Folic Acid 400 mcg PO DAILY 01/24/21 [History] Furosemide 40 mg [Lasix 40 MG] 40 mg PO BID 01/24/21 [History] Fluticasone/Salmeterol [Advair 250-50 Diskus] 1 each IH BID 02/22/21 [History] Clopidogrel Bisulfate [PLAVIX Tablet] 1 tab PO DAILY 01/16/22 [History] Meclizine HCl 25 mg [Antivert 25 mg] 1 tab PO BID 01/16/22 [History] Ropinirole HCl 1 tab PO HS 01/16/22 [History] carvediloL [Carvedilol] 1 tab PO BID 01/16/22 [History] Hx Tetanus, Diphtheria Vaccination/Date Given: Yes Hx Influenza Vaccination/Date Given: No Hx Pneumococcal Vaccination/Date Given: Yes Travel Risk - Vaccine Status Have you recieved a Covid-19 vaccination: Yes 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: [employer] - Vaccination Dates Date of 2cond Vaccination (if applicable): Unknown - Review of Systems Constitutional: No Symptoms Eyes: No Symptoms Ears, Nose, & Throat: No Symptoms Respiratory: Cough, Dyspnea, Dyspnea on Exertion (RICHEY), Wheezing Cardiac: Chest Pain Abdominal/Gastrointestinal: No Symptoms Genitourinary Symptoms: No Symptoms Musculoskeletal: No Symptoms Skin: No Symptoms Neurological: Focal Weakness Psychological: No Symptoms Endocrine: No Symptoms Hematologic/Lymphatic: No Symptoms Immunological/Allergic: No Symptoms - Past Medical History Pertinent Past Medical History: Yes Neurological History: Stroke ENT History: No Pertinent History Cardiac History: High Cholesterol, Hypertension Respiratory History: COPD Endocrine Medical History: Diabetes Type II, Liver Disease Musculoskeletal History: No Pertinent History GI Medical History: GERD, Gallbladder Disease History: Dialysis, Renal Disease Psycho-Social History: Depression, Other Male Reproductive Disorders: No Pertinent History Other Medical History: schizophrenia, RLS - Past Surgical History Past Surgical History: Yes Neuro Surgical History: No Pertinent History Cardiac: No Pertinent History Respiratory: No Pertinent History Gastrointestinal: Appendectomy, Cholecystectomy, Hernia Repair Genitourinary: No Pertinent History Musculoskeletal: Orthopedic Surgery Male Surgical History: Vasectomy Other Surgical History: left knee, right knee, bilateral carpal tunnel, peritoneal dialysis catheter placement in [facility] - Social History Smoking Status: Current every day smoker How long have you smoked: 40 YEARS Exposure to second hand smoke: No Drug Use: marijuana Patient Lives Alone: Yes - Nursing Vital Signs Nursing Vital Signs: Initial Vital Signs Temperature 97.5 F 03/11/22 07:50 Pulse Rate 80 03/11/22 07:50 Respiratory Rate 16 03/11/22 07:50 Blood Pressure 219/108 03/11/22 07:50 O2 Sat by Pulse Oximetry 100 03/11/22 07:50 Pain Scale Pain Intensity 4 - Physical Exam General Appearance: no apparent distress, alert Eye Exam: eyes nml inspection Ears, Nose, Throat Exam: normal ENT inspection, TMs normal, pharynx normal Neck Exam: normal inspection, supple, full range of motion Respiratory Exam: wheezing, No respiratory distress, No accessory muscle use Cardiovascular Exam: regular rate/rhythm, normal heart sounds Gastrointestinal/Abdomen Exam: soft, normal bowel sounds, other (PD catheter well in place), No tenderness Back Exam: normal inspection, normal range of motion Extremity Exam: normal inspection, normal range of motion Neurologic Exam: alert, oriented x 3, cooperative Skin Exam: normal color SpO2 Interpretation: O2 applied SpO2: 99 O2 Delivery: Nasal Cannula (2 L) - Course EKG Interpreted by Me: RATE (92), Sinus Rhythm, prolonged QT interval, Non-sp ecific ST Changes Ordered Tests: Active Orders 24 hr Category Date Time Status Pocket Assembler STAT Care 03/11/22 07:56 Active EKG-ER Only STAT Care 03/11/22 07:55 Active IV Insertion STAT Care 03/11/22 07:55 Active Oxygen-ED Only Nasal Cannula 2 lpm Care 03/11/22 07:55 Active CHEST 1 VIEW (PORTABLE) Stat Exams 03/11/22 07:56 Completed BLOOD CULTURE Stat Lab 03/11/22 Ordered CBC W DIFF Stat Lab 03/11/22 07:50 Completed CMP Stat Lab 03/11/22 07:50 Completed Lactic Acid Stat Lab 03/11/22 07:55 Completed MAGNESIUM Stat Lab 03/11/22 07:50 Completed NT PRO BNP Stat Lab 03/11/22 07:50 Completed TROPONIN Q4H Lab 03/11/22 07:50 Completed TROPONIN Q4H Lab 03/11/22 12:00 Ordered TROPONIN Q4H Lab 03/11/22 16:00 Ordered Respiratory Therapy Assessment DAILY RT 03/11/22 08:45 Active Medication Summary Discontinued Medications Generic Name Dose Route Start Last Admin Trade Name Freq PRN Reason Stop Dose Admin Albuterol/Ipratropium 3 ml 03/11/22 07:55 03/11/22 08:06 Ipratropium/Albuterol Sulfate 3 Ml Ampul.Neb IH 03/11/22 07:56 3 ml STAT ONE Administration Albuterol/Ipratropium Confirm 03/11/22 08:02 Ipratropium/Albuterol Sulfate 3 Ml Ampul.Neb Administered 03/11/22 08:03 Dose 3 ml IH .STK-MED ONE Methylprednisolone Sodium 0 mg 03/11/22 07:55 03/11/22 08:04 Succinate 125 mg/ Sterile IV 03/11/22 07:56 125 mg Water 2 ml STAT ONE Administration Hydralazine HCl 10 mg 03/11/22 08:44 03/11/22 08:47 Hydralazine Hcl 20 Mg/Ml Vial IV 03/11/22 08:45 10 mg STAT ONE Administration Hydralazine HCl Confirm 03/11/22 08:46 Hydralazine Hcl 20 Mg/Ml Vial Administered 03/11/22 08:47 Dose 20 mg .ROUTE .STK-MED ONE Azithromycin 500 mg in 250 mls @ 250 mls/hr 03/11/22 08:13 03/11/22 10:05 Zithromax 500 Mg/ 250 Ml Nacl Premix IV 03/11/22 09:12 Infused STAT STA Infusion Ceftriaxone Sodium/Dextrose 2 g in 50 mls @ 100 mls/hr 03/11/22 08:13 03/11/22 08:54 Rocephin 2 Gm-D5w 50ml Bag IV 03/11/22 08:42 Infused STAT STA Infusion Ceftriaxone Sodium/Dextrose Confirm 03/11/22 08:23 Rocephin 2 Gm-D5w 50ml Bag Administered 03/11/22 08:24 Dose 2 g in 50 mls @ ud IV .STK-MED ONE Azithromycin Confirm 03/11/22 08:51 Zithromax 500 Mg/ 250 Ml Nacl Premix Administered 03/11/22 08:52 Dose 500 mg in 250 mls @ ud IV .STK-MED ONE Methylprednisolone Sodium Succinate Confirm 03/11/22 08:01 Methylprednis Sod Succ 125 Mg/2 Ml Vial Administered 03/11/22 08:02 Dose 125 mg .ROUTE .STK-MED ONE Metoclopramide HCl Confirm 03/11/22 09:06 Metoclopramide Hcl 10 Mg/2 Ml Vial Administered 03/11/22 09:07 Dose 10 mg .ROUTE .STK-MED ONE Metoclopramide HCl 10 mg 03/11/22 09:10 03/11/22 09:12 Metoclopramide Hcl 10 Mg/2 Ml Vial IV 03/11/22 09:11 10 mg STAT ONE Administration Morphine Sulfate 4 mg 03/11/22 07:56 03/11/22 08:05 Morphine Sulfate 4 Mg/Ml Injection IV 03/11/22 07:57 4 mg STAT ONE Administration Morphine Sulfate Confirm 03/11/22 08:00 Morphine Sulfate 4 Mg/Ml Injection Administered 03/11/22 08:01 Dose 4 mg .ROUTE .STK-MED ONE Nitroglycerin 1 gm 03/11/22 07:55 03/11/22 08:18 Nitroglycerin 1 Gm Packet TOP 03/11/22 07:56 1 gm STAT ONE Administration Nitroglycerin Confirm 03/11/22 08:00 Nitroglycerin 1 Gm Packet Administered 03/11/22 08:01 Dose 1 gm .ROUTE .STK-MED ONE Nitroglycerin 0.4 mg 03/11/22 07:53 03/11/22 07:53 Nitroglycerin 0.4 Mg (Ed) 0.4 Mg Tab.Subl SL 03/11/22 07:54 0.4 mg STAT ONE Administration Ondansetron HCl 4 mg 03/11/22 07:56 03/11/22 08:04 Ondansetron Hcl 4 Mg/2 Ml Vial IV 03/11/22 07:57 4 mg STAT ONE Administration Ondansetron HCl Confirm 03/11/22 08:00 Ondansetron Hcl 4 Mg/2 Ml Vial Administered 03/11/22 08:01 Dose 4 mg .ROUTE .STK-MED ONE Sterile Water Confirm 03/11/22 08:00 Water For Injection,Sterile 10 Ml Vial Administered 03/11/22 08:01 Dose 10 ml IJ .STK-MED ONE Lab/Rad Data: Laboratory Result Diagrams 03/11/22 07:50 03/11/22 07:50 Laboratory Results 03/11/22 03/11/22 03/11/22 Range/Units 07:55 07:50 07:50 WBC (4.0-10.5) x10^3/uL RBC (4.1-5.6) x10^6/uL Hgb (12.5-18.0) g/dL Hct (42-50) % MCV (78-100) fL MCH (26-32) pg MCHC (32-36) g/dL RDW (11.5-14.0) % Plt Count (150-450) x10^3/uL MPV (7.5-11.0) fL Gran % (36.0-66.0) % Immature Gran % (Auto) (0.00-0.4) % Nucleat RBC Rel Count (0.00-0.1) % Eos # (Auto) (0-0.5) x10^3/uL Immature Gran # (Auto) (0.00-0.03) x10^3u/L Absolute Lymphs (auto) (1.0-4.6) x10^3/uL Absolute Monos (auto) (0.0-1.3) x10^3/uL Absolute Nucleated RBC (0.00-0.01) x10^3u/L Lymphocytes % (24.0-44.0) % Monocytes % (0.0-12.0) % Eosinophils % (0.00-5.0) % Basophils % (0.0-0.4) % Absolute Granulocytes (1.4-6.9) x10^3/uL Basophils # (0-0.4) x10^3/uL Sodium 126 L (137-145) mmol/L Potassium 5.2 H (3.5-5.1) mmol/L Chloride 94 L (98-107) mmol/L Carbon Dioxide 24 (22-30) mmol/L Anion Gap 12.1 (5-15) MEQ/L BUN 43 H (9-20) mg/dL Creatinine 8.37 H (0.66-1.25) mg/dL Estimated GFR 7.1 ML/MIN Glucose 100 (74-106) mg/dL Lactic Acid 0.9 (0.4-2.0) Calcium 7.7 L (8.4-10.2) mg/dL Magnesium 2.7 H (1.6-2.3) mg/dL Total Bilirubin 0.80 (0.2-1.3) mg/dL AST 28 (17-59) U/L ALT 15 (0-50) U/L Alkaline Phosphatase 119 (38-126) U/L Troponin I 0.049 H* (0.000-0.034) ng/mL NT-Pro-B Natriuret Pep 95826 H (0-900) pg/mL Serum Total Protein 6.0 L (6.3-8.2) g/dL Albumin 2.6 L (3.5-5.0) g/dL 03/11/22 Range/Units 07:50 WBC 10.1 (4.0-10.5) x10^3/uL RBC 3.66 L (4.1-5.6) x10^6/uL Hgb 10.4 L (12.5-18.0) g/dL Hct 32.3 L (42-50) % MCV 88.3 (78-100) fL MCH 28.4 (26-32) pg MCHC 32.2 (32-36) g/dL RDW 15.2 H (11.5-14.0) % Plt Count 366 (150-450) x10^3/uL MPV 8.5 (7.5-11.0) fL Gran % 80.7 H (36.0-66.0) % Immature Gran % (Auto) 0.4 (0.00-0.4) % Nucleat RBC Rel Count 0.0 (0.00-0.1) % Eos # (Auto) 0.33 (0-0.5) x10^3/uL Immature Gran # (Auto) 0.04 H (0.00-0.03) x10^3u/L Absolute Lymphs (auto) 0.59 L (1.0-4.6) x10^3/uL Absolute Monos (auto) 0.92 (0.0-1.3) x10^3/uL Absolute Nucleated RBC 0.00 (0.00-0.01) x10^3u/L Lymphocytes % 5.8 L (24.0-44.0) % Monocytes % 9.1 (0.0-12.0) % Eosinophils % 3.3 (0.00-5.0) % Basophils % 0.7 (0.0-0.4) % Absolute Granulocytes 8.14 H (1.4-6.9) x10^3/uL Basophils # 0.07 (0-0.4) x10^3/uL Sodium (137-145) mmol/L Potassium (3.5-5.1) mmol/L Chloride (98-107) mmol/L Carbon Dioxide (22-30) mmol/L Anion Gap (5-15) MEQ/L BUN (9-20) mg/dL Creatinine (0.66-1.25) mg/dL Estimated GFR ML/MIN Glucose (74-106) mg/dL Lactic Acid (0.4-2.0) Calcium (8.4-10.2) mg/dL Magnesium (1.6-2.3) mg/dL Total Bilirubin (0.2-1.3) mg/dL AST (17-59) U/L ALT (0-50) U/L Alkaline Phosphatase (38-126) U/L Troponin I (0.000-0.034) ng/mL NT-Pro-B Natriuret Pep (0-900) pg/mL Serum Total Protein (6.3-8.2) g/dL Albumin (3.5-5.0) g/dL - Progress Progress: improved, re-examined Air Movement: good Progress Note: 03/11/22 09:55 57-year-old is evaluated for chest pain with shortness of breath. Patient is not bradycardic while in our ER and EKG is normal sinus without any ST elevation. Given nitro sublingual followed by Nitropaste along with morphine, on reevaluation chest pain is improved. Patient also has elevated blood pressure and given hydralazine and currently in 160s. Chest x-ray showed bilateral pleural effusion worse on the left as compared to right, given a dose of Rocephin and Zithromax as well. Work-up showed normal white count, mildly e levated troponin of 0.049 but patient does have chronic troponin leak and with ESRD this could be related to renal issues, will trend cardiac enzymes. Potassium of 5.2 and low sodium 126, will hold free water. I believe patient would benefit with admission and consultation with nephrology and also wants to go to [facility] which is reasonable with his primary nephrology is. Discussed with Dr. Mortensen at [facility] ER, reviewed history, work-up and patient is excepted for transfer. Blood Culture(s) Obtained: Yes Antibiotics given: Yes Discussed with DrRussel: Other (Dr. Branden Pond [facility]) Counseled pt/family regarding: lab results, diagnosis, rad results, smoking cessation - Departure Departure Disposition: Transfer Clinical Impression: End stage kidney disease, Elevated troponin, Hyponatremia, Chest pain, rule out acute myocardial infarction, Pneumonia Condition: Stable Critical Care Time: No Referrals: PREMA PRINGLE, CRISIS MANAGER [Primary Care Provider] - Follow up/PCP as directed
[2022-03-11 08:04] LABS: Absolute Neutrophil Ct (ANC) 8.14 x10^3/uL (1.4-6.9); Basophil (Absolute #) 0.07 x10^3/uL (0-0.4); Eosinophil % 3.3 % (0.00-5.0); Eosinophil (Absolute #) 0.33 x10^3/uL (0-0.5); Hematocrit 32.3 % (42-50); Hemoglobin 10.4 g/dL (12.5-18.0); Lymphocyte (Absolute #) 0.59 x10^3/uL (1.0-4.6); Lymphocytes % 5.8 % (24.0-44.0); Mean Cell Volume 88.3 fL (78-100); Mean Corpuscular Hemoglobin 28.4 pg (26-32); Mean Corpuscular Hgb Concent. 32.2 g/dL (32-36); Mean Platelet Volume 8.5 fL (7.5-11.0); Monocyte (Absolute #) 0.92 x10^3/uL (0.0-1.3); Monocytes % 9.1 % (0.0-12.0); Neutrophil % 80.7 % (36.0-66.0); Platelet Count 366 x10^3/uL (150-450); Red Blood Count 3.66 x10^6/uL (4.1-5.6); Red Cell Distribution Width 15.2 % (11.5-14.0); White Blood Count 10.1 x10^3/uL (4.0-10.5)
[2022-03-11] MEDS ORDERED: ROCEPHIN 2 Gm-D5w 50ML BAG** 2 G/50 ML IVPB IV STA (08:13)
[2022-03-11] MEDS ORDERED: Zithromax 500 MG/ 250 ML NaCl Premix 500 MG/250 ML IVPB IV STA (08:13)
[2022-03-11] MEDS ORDERED: ROCEPHIN 2 Gm-D5w 50ML BAG** 2 G/50 ML IVPB IV ONE (08:23)
[2022-03-11 08:25] LABS: ALBUMIN 2.6 g/dL (3.5-5.0); ANION GAP 12.1 MEQ/L (5-15); BILIRUBIN,TOTAL 0.8 mg/dL (0.2-1.3); Calcium 7.7 mg/dL (8.4-10.2); Creatinine 1 8.37 mg/dL (0.66-1.25); EST GLOMERULAR FILTRATION RATE 7.1 ML/MIN; MAGNESIUM 2.7 mg/dL (1.6-2.3); Potassium 5.2 mmol/L (3.5-5.1)
[2022-03-11] MEDS ORDERED: APRESOLINE 20 MG/ML INJ IV ONE (08:44)
[2022-03-11] MEDS ORDERED: APRESOLINE 20 MG/ML INJ ONE (08:46)
[2022-03-11] MEDS ORDERED: Zithromax 500 MG/ 250 ML NaCl Premix 500 MG/250 ML IVPB IV ONE (08:51)
--- NOTE | 2022-03-11 09:04 | XRAY ---
Indication: Chest pain and short of breath. Comparison: January 16, 2022 Portable chest again demonstrates moderate bibasilar effusions/atelectasis increased on the left. Heart grossly not enlarged. Bony thorax intact.
[2022-03-11] MEDS ORDERED: Reglan 10 MG/2 ML ONE (09:06)
[2022-03-11] MEDS ORDERED: Reglan 10 MG/2 ML IV ONE (09:10)
[2022-03-11 10:06] VITALS: BP 159/91; PULSE 84
[2022-03-11 10:19] VITALS: O2SAT 99
[2022-03-11 11:41] LABS: Slide Review 1 YES
== END 2022-03-11 10:40 | disposition short-term general hospital (02) ==
LOC: ED 07:44
DX: I12.0 Hypertensive chronic kidney disease with stage 5 chronic kidney disease or end stage renal disease (principal); N18.6 End stage renal disease; R77.8 Other specified abnormalities of plasma proteins; E87.1 Hypo-osmolality and hyponatremia; R07.9 Chest pain, unspecified; J18.9 Pneumonia, unspecified organism; E78.5 Hyperlipidemia, unspecified; E11.22 Type 2 diabetes mellitus with diabetic chronic kidney disease; J44.9 Chronic obstructive pulmonary disease, unspecified; R06.02 Shortness of breath; R05.1 Acute cough; Z72.0 Tobacco use; Z79.02 Long term (current) use of antithrombotics/antiplatelets; Z79.899 Other long term (current) drug therapy
CPT/HCPCS: 36000; 36415; 71045; 80053; 83605; 83735; 83880; 84484; 85025; 87040; 93005; 93041; 94640; 96365; 96367; 96374; 96375; 99285; J0360; J0456; J0696; J2270; J2405; J2930; A9270-GY

== ENCOUNTER 2022-05-13 07:19 | Observation (INO) | payer MEDICARE ==
[2022-05-13] MEDS ORDERED: Zofran 4 MG/2 ML VIAL IV ONE (07:34)
[2022-05-13] MEDS ORDERED: MORPHINE SULFATE 4 MG INJ IV ONE (07:34)
[2022-05-13] MEDS ORDERED: Pepcid 20 MG VIAL IV ONE ×2 (07:34→07:47)
--- NOTE | 2022-05-13 07:42 | ERPHSYRPT ---
- History of Present Illness Time Seen by Provider: 05/13/22 07:37 Historian: patient Exam Limitations: no limitations Physician History: pt came into ER with back pain and shortness of breath. Denies fall or trauma. No cough or fever. SOBreath resolved on O2 3 L NC, pulse ox improved from 93 on Romm Air to 98 on O2. Right sided abd tenderness. Dialysis cath in place left side. Known CRD on peritoneal dialysis. No N or V reported. Chest clear . Ht reg without Murmur. No neuro deficits. Spine nontender. Timing/Duration: today Quality: aching, sharpness Abdominal Pain Onset Location: other (RLQ tenderness) Pain Radiation: back Severity of Pain-Max: moderate Severity of Pain-Current: moderate Modifying Factors: Improves With: breathing, movement Associated Symptoms: back Previous symptoms: no prior history Allergies/Adverse Reactions: Sulfa (Sulfonamide Antibiotics) Allergy (Verified 05/13/22 07:35) Home Medications: Esomeprazole Magnesium [Nexium] 40 mg PO DAILY 09/08/16 [History] Aspirin EC 81 mg [Ecotrin 81 mg] 81 mg PO DAILY 01/24/21 [History] Atorvastatin Calcium 20 mg PO HS 01/24/21 [History] Fluticasone/Salmeterol [Advair 250-50 Diskus] 1 each IH BID 02/22/21 [History] carvediloL [Carvedilol] 1 tab PO BID 01/16/22 [History] Albuterol 2.5 mg/3 ml Neb [Proventil 2.5 mg/3 ml Neb] 1 vial PO Q6H PRN PRN 05/13/22 [History] Amiodarone HCl 1 tab PO DAILY 05/13/22 [History] Apixaban [Eliquis] 1 tab PO BID 05/13/22 [History] Clonidine HCl 0.1 mg [Clonidine 0.1 mg Tablet] 1 tab PO TID 05/13/22 [History] Doxazosin Mesylate 2 mg [Cardura 2 mg] 1 tab PO BID 05/13/22 [History] Furosemide 20 mg [Lasix 20 mg] 1 tab PO TID 05/13/22 [History] Hydralazine HCl 1 tab PO TID 05/13/22 [History] Hydrocodone/Acetaminophen [Hydrocodone-Acetamin 5-325 mg] 1 tab PO Q8H PRN PRN 05/13/22 [History] Isosorbide Mononitrate 60 mg [Imdur 60MG] 1 tab PO DAILY 05/13/22 [History] Magnesium Oxide 400 mg [Mag-Ox 400] 800 mg PO DAILY 05/13/22 [History] Potassium Chloride 1 tab PO DAILY 05/13/22 [History] Hx Tetanus, Diphtheria Vaccination/Date Given: Yes Hx Influenza Vaccination/Date Given: No Hx Pneumococcal Vaccination/Date Given: Yes Travel Risk - Vaccine Status Have you recieved a Covid-19 vaccination: Yes 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[employer] - Vaccination Dates Date of 2cond Vaccination (if applicable): Unknown - Review of Systems Constitutional: No Fever, No Chills Eyes: No Symptoms Ears, Nose, & Throat: No Symptoms Respiratory: Dyspnea, No Cough Cardiac: No Chest Pain, No Edema, No Syncope Abdominal/Gastrointestinal: No Abdominal Pain, No Nausea, No Vomiting, No Diarrhea Genitourinary Symptoms: No Dysuria Musculoskeletal: Back Pain, No Neck Pain Skin: No Rash Neurological: No Dizziness, No Focal Weakness, No Sensory Changes Psychological: No Symptoms Endocrine: No Symptoms Hematologic/Lymphatic: No Symptoms Immunological/Allergic: No Symptoms All Other Systems: Reviewed and Negative - Past Medical History Pertinent Past Medical History: Yes Neurological History: Stroke ENT History: No Pertinent History Cardiac History: High Cholesterol, Hypertension Respiratory History: COPD Endocrine Medical History: Diabetes Type II, Liver Disease Musculoskeletal History: No Pertinent History GI Medical History: GERD, Gallbladder Disease History: Dialysis, Renal Disease Psycho-Social History: Depression, Other Male Reproductive Disorders: No Pertinent History Other Medical History: schizophrenia, RLS - Past Surgical History Past Surgical History: Yes Neuro Surgical History: No Pertinent History Cardiac: No Pertinent History Respiratory: No Pertinent History Gastrointestinal: Appendectomy, Cholecystectomy, Hernia Repair Genitourinary: No Pertinent History Musculoskeletal: Orthopedic Surgery Male Surgical History: Vasectomy Other Surgical History: left knee, right knee, bilateral carpal tunnel, peritoneal dialysis catheter placement in LLQ - Social History Smoking Status: Current every day smoker How long have you smoked: 40 YEARS Exposure to second hand smoke: No Drug Use: marijuana Patient Lives Alone: Yes - Nursing Vital Signs Nursing Vital Signs: Initial Vital Signs Temperature 97.6 F 05/13/22 07:36 Pulse Rate 93 H 05/13/22 07:36 Respiratory Rate 22 05/13/22 07:36 Blood Pressure 149/100 05/13/22 07:36 O2 Sat by Pulse Oximetry 97 05/13/22 07:36 Pain Scale Pain Intensity 3 - Physical Exam General Appearance: no apparent distress, alert Eye Exam: PERRL/EOMI, eyes nml inspection Ears, Nose, Throat Exam: normal ENT inspection, pharynx normal, moist mucous membranes Neck Exam: normal inspection, non-tender, supple, full range of motion Respiratory Exam: normal breath sounds, lungs clear, No respiratory distress Cardiovascular Exam: regular rate/rhythm, normal heart sounds Gastrointestinal/Abdomen Exam: soft, tenderness, guarding, No mass Male Genitalia Exam: normal genitalia Rectal Exam: deferred Back Exam: normal inspection, normal range of motion, No CVA tenderness, No vertebral tenderness Extremity Exam: normal inspection, normal range of motion, pelvis stable Neurologic Exam: alert, oriented x 3, cooperative, normal mood/affect, nml cerebellar function, sensation nml, No motor deficits Skin Exam: normal color, warm, dry SpO2 Interpretation: borderline oxygenation SpO2: 93 O2 Delivery: Room Air - Course Nursing assessment & vital signs reviewed: Yes EKG Interpreted by Me: Sinus Rhythm, NORMAL AXIS, Non-specific ST Changes, Other (prolonged [place]) - Radiology Exams Chest X-ray Interpretation: Reviewed by me, Infiltrates, Other (effusions) - CT Exams Abdomen/Pelvis CT Interpretation: Tele-radiologist Report, No appendicitis, Other (small free air and fluid consistent with catheter per rad) Ordered Tests: Active Orders 24 hr Category Date Time Status EKG-ER Only STAT Care 05/13/22 07:34 Active IV Insertion STAT Care 05/13/22 07:34 Active NPO (ED) STAT Care 05/13/22 07:34 Active ABDOMEN AND PELVIS W/0 CONTRAS [CT] Stat Exams 05/13/22 07:35 Completed CHEST 1 VIEW (PORTABLE) Stat Exams 05/13/22 07:35 Completed AMYLASE Stat Lab 05/13/22 07:30 Completed CBC W DIFF Stat Lab 05/13/22 07:30 Completed CMP Stat Lab 05/13/22 07:30 Completed D-DIMER QUANTITATIVE Stat Lab 05/13/22 07:30 Completed LIPASE Stat Lab 05/13/22 07:30 Completed Lactic Acid Stat Lab 05/13/22 08:00 Completed NT PRO BNP Stat Lab 05/13/22 07:30 Completed TROPONIN Q4H Lab 05/13/22 07:30 Completed TROPONIN Q4H Lab 05/13/22 11:45 Ordered TROPONIN Q4H Lab 05/13/22 15:45 Ordered UA W/RFX CULTURE Stat Lab 05/13/22 Ordered Medication Summary Generic Name Dose Route Start Last Admin Trade Name Freq PRN Reason Stop Dose Admin Sodium Chloride 1,000 mls @ 50 mls/hr 05/13/22 07:45 05/13/22 07:49 Sodium Chloride 0.9% 1000 Ml IV 06/12/22 07:44 50 mls/hr .Q20H MARII Administration Piperacillin Sod/Tazobactam 100 mls @ 200 mls/hr 05/13/22 09:49 05/13/22 09:59 Sod 3.375 gm/ Sodium Chloride IV 05/13/22 10:18 200 mls/hr STAT ONE Administration Discontinued Medications Generic Name Dose Route Start Last Admin Trade Name Freq PRN Reason Stop Dose Admin Famotidine 20 mg 05/13/22 07:34 05/13/22 07:49 Famotidine 20 Mg/1 Vial IV 05/13/22 07:35 20 mg STAT ONE Administration Famotidine Confirm 05/13/22 07:47 Famotidine 20 Mg/1 Vial Administered 05/13/22 07:48 Dose 20 mg IV .STK-MED ONE Sodium Chloride Confirm 05/13/22 09:59 Sodium Chloride 100ml Mini-Bag Plus Administered 05/13/22 10:00 Dose 100 mls @ ud IV .STK-MED ONE Morphine Sulfate 4 mg 05/13/22 07:34 05/13/22 07:49 Morphine Sulfate 4 Mg/Ml Injection IV 05/13/22 07:35 4 mg STAT ONE Administration Morphine Sulfate Confirm 05/13/22 07:47 Morphine Sulfate 4 Mg/Ml Injection Administered 05/13/22 07:48 Dose 4 mg .ROUTE .STK-MED ONE Ondansetron HCl 4 mg 05/13/22 07:34 05/13/22 07:49 Ondansetron Hcl 4 Mg/2 Ml Vial IV 05/13/22 07:35 4 mg STAT ONE Administration Ondansetron HCl Confirm 05/13/22 07:47 Ondansetron Hcl 4 Mg/2 Ml Vial Administered 05/13/22 07:48 Dose 4 mg .ROUTE .STK-MED ONE Piperacillin Sod/Tazobactam Sod Confirm 05/13/22 09:59 Piperacillin/Tazobactam Sodium 3.375 Gm Vial Administered 05/13/22 10:00 Dose 3.375 gm IV .STK-MED ONE Lab/Rad Data: Laboratory Result Diagrams 05/13/22 07:30 05/13/22 07:30 Laboratory Results 05/13/22 05/13/22 05/13/22 Range/Units 08:00 07:30 07:30 WBC (4.0-10.5) x10^3/uL RBC (4.1-5.6) x10^6/uL Hgb (12.5-18.0) g/dL Hct (42-50) % MCV (78-100) fL MCH (26-32) pg MCHC (32-36) g/dL RDW (11.5-14.0) % Plt Count (150-450) x10^3/uL MPV (7.5-11.0) fL Gran % (36.0-66.0) % Immature Gran % (Auto) (0.00-0.4) % Nucleat RBC Rel Count (0.00-0.1) % Eos # (Auto) (0-0.5) x10^3/uL Immature Gran # (Auto) (0.00-0.03) x10^3u/L Absolute Lymphs (auto) (1.0-4.6) x10^3/uL Absolute Monos (auto) (0.0-1.3) x10^3/uL Absolute Nucleated RBC (0.00-0.01) x10^3u/L Lymphocytes % (24.0-44.0) % Monocytes % (0.0-12.0) % Eosinophils % (0.00-5.0) % Basophils % (0.0-0.4) % Absolute Granulocytes (1.4-6.9) x10^3/uL Basophils # (0-0.4) x10^3/uL D-Dimer 15.62 H* (0.0-0.50) mg/L Sodium (137-145) mmol/L Potassium (3.5-5.1) mmol/L Chloride (98-107) mmol/L Carbon Dioxide (22-30) mmol/L Anion Gap (5-15) MEQ/L BUN (9-20) mg/dL Creatinine (0.66-1.25) mg/dL Estimated GFR ML/MIN Glucose (74-106) mg/dL Lactic Acid 1.4 (0.4-2.0) Calcium (8.4-10.2) mg/dL Total Bilirubin (0.2-1.3) mg/dL AST (17-59) U/L ALT (0-50) U/L Alkaline Phosphatase (38-126) U/L Troponin I 0.053 H* (0.000-0.034) ng/mL NT-Pro-B Natriuret Pep (0-900) pg/mL Serum Total Protein (6.3-8.2) g/dL Albumin (3.5-5.0) g/dL Amylase (30-110) U/L Lipase (23-300) U/L Slides for Path Review 05/13/22 05/13/22 Range/Units 07:30 07:30 WBC 14.0 H (4.0-10.5) x10^3/uL RBC 3.32 L (4.1-5.6) x10^6/uL Hgb 9.5 L (12.5-18.0) g/dL Hct 30.3 L (42-50) % MCV 91.3 (78-100) fL MCH 28.6 (26-32) pg MCHC 31.4 L (32-36) g/dL RDW 15.9 H (11.5-14.0) % Plt Count 353 (150-450) x10^3/uL MPV 8.4 (7.5-11.0) fL Gran % 85.9 H (36.0-66.0) % Immature Gran % (Auto) 0.5 H (0.00-0.4) % Nucleat RBC Rel Count 0.0 (0.00-0.1) % Eos # (Auto) 0.33 (0-0.5) x10^3/uL Immature Gran # (Auto) 0.07 H (0.00-0.03) x10^3u/L Absolute Lymphs (auto) 0.51 L (1.0-4.6) x10^3/uL Absolute Monos (auto) 1.02 (0.0-1.3) x10^3/uL Absolute Nucleated RBC 0.00 (0.00-0.01) x10^3u/L Lymphocytes % 3.6 L (24.0-44.0) % Monocytes % 7.3 (0.0-12.0) % Eosinophils % 2.4 (0.00-5.0) % Basophils % 0.3 (0.0-0.4) % Absolute Granulocytes 12.06 H (1.4-6.9) x10^3/uL Basophils # 0.04 (0-0.4) x10^3/uL D-Dimer (0.0-0.50) mg/L Sodium 130 L (137-145) mmol/L Potassium 3.7 (3.5-5.1) mmol/L Chloride 94 L (98-107) mmol/L Carbon Dioxide 29 (22-30) mmol/L Anion Gap 10.6 (5-15) MEQ/L BUN 41 H (9-20) mg/dL Creatinine 6.06 H (0.66-1.25) mg/dL Estimated GFR 10.3 ML/MIN Glucose 98 (74-106) mg/dL Lactic Acid (0.4-2.0) Calcium 7.4 L (8.4-10.2) mg/dL Total Bilirubin 0.60 (0.2-1.3) mg/dL AST 19 (17-59) U/L ALT 9 (0-50) U/L Alkaline Phosphatase 119 (38-126) U/L Troponin I (0.000-0.034) ng/mL NT-Pro-B Natriuret Pep 24634 H (0-900) pg/mL Serum Total Protein 5.8 L (6.3-8.2) g/dL Albumin 2.4 L (3.5-5.0) g/dL Amylase 52 (30-110) U/L Lipase 28 (23-300) U/L Slides for Path Review YES - Progress Progress: improved, re-examined Progress Note: 05/13/22 09:30 Discussed findings with pt and he wishes if available and feels in agreement to stay here until avail. Discussed with Dr. Palumbo at and he will consult if accepted at . Now awaiting hospitalist to call back. Pt is comfortable now. We are unable to do a VQ scan here and cannot take PE protocol due to CRD. 05/13/22 09:[address] Cohn at [facility] and she will accept when bed available maybe this pm later - no beds yet. He is on the list for transfer [facility] when available. 05/13/22 10:[address] Mathur covering here and he will take on obs until bed available at [facility]. Discussed with .: Zainab Counseled pt/family regarding: lab results, diagnosis, need for follow-up, rad results - Departure Departure Disposition: Observation Clinical Impression: Elevated d-dimer, Elevated troponin, Peritoneal dialysis catheter in place, CRD (chronic renal disease), COPD (chronic obstructive pulmonary disease), CHF (congestive heart failure), COPD exacerbation Condition: Fair Critical Care Time: No Referrals: PREMA PRINGLE, RIP TAILER [Primary Care Provider] - Follow up/PCP as directed Instructions: Heart Failure, Chronic Obstructive Pulmonary Disease
[2022-05-13] MEDS ORDERED: Sodium Chloride 0.9% 1000 ML 1,000 ML IV SCH (07:45)
[2022-05-13] MEDS ORDERED: MORPHINE SULFATE 4 MG INJ ONE (07:47)
[2022-05-13] MEDS ORDERED: Zofran 4 MG/2 ML VIAL ONE (07:47)
[2022-05-13] MEDS ORDERED: Sodium Chloride 0.9% 1000 ML 1,000 ML ONE (07:47)
[2022-05-13 07:58] LABS: Absolute Neutrophil Ct (ANC) 12.06 x10^3/uL (1.4-6.9); Basophil (Absolute #) 0.04 x10^3/uL (0-0.4); Eosinophil % 2.4 % (0.00-5.0); Eosinophil (Absolute #) 0.33 x10^3/uL (0-0.5); Hematocrit 30.3 % (42-50); Hemoglobin 9.5 g/dL (12.5-18.0); Lymphocyte (Absolute #) 0.51 x10^3/uL (1.0-4.6); Lymphocytes % 3.6 % (24.0-44.0); Mean Cell Volume 91.3 fL (78-100); Mean Corpuscular Hemoglobin 28.6 pg (26-32); Mean Corpuscular Hgb Concent. 31.4 g/dL (32-36); Mean Platelet Volume 8.4 fL (7.5-11.0); Monocyte (Absolute #) 1.02 x10^3/uL (0.0-1.3); Monocytes % 7.3 % (0.0-12.0); Neutrophil % 85.9 % (36.0-66.0); Platelet Count 353 x10^3/uL (150-450); Red Blood Count 3.32 x10^6/uL (4.1-5.6); Red Cell Distribution Width 15.9 % (11.5-14.0)
[2022-05-13 08:24] LABS: ALBUMIN 2.4 g/dL (3.5-5.0); ANION GAP 10.6 MEQ/L (5-15); BILIRUBIN,TOTAL 0.6 mg/dL (0.2-1.3); Calcium 7.4 mg/dL (8.4-10.2); Creatinine 1 6.06 mg/dL (0.66-1.25); EST GLOMERULAR FILTRATION RATE 10.3 ML/MIN; Potassium 3.7 mmol/L (3.5-5.1); Total Protein 5.8 g/dL (6.3-8.2)
--- NOTE | 2022-05-13 08:31 | XRAY ---
Indication: Back and right lower quadrant pain. Multiple contiguous axial images obtained through the abdomen and pelvis without contrast. Comparison: January 16, 2022 Lung bases demonstrates interval worsening moderate bilateral pleural effusions with bibasilar compressive atelectasis. Heart borderline enlarged with increasing pericardial effusion. Stable left lower quadrants peritoneal dialysis catheter with the tip coiled in midabdomen. Again small free fluid presumed related. New small free air that may also be related. Perforated GI tract not completely excluded. Noncontrasted stomach and bowel loops appear nonobstructed. There is now marked diffuse fecal stasis throughout. Colon demonstrates new radiopacities either ingested medication, bismuth, or barium. Stable small kidneys, cholecystectomy, and appendectomy. Urinary bladder is now markedly distended concerning for outlet obstructive versus neurogenic bladder. Remaining liver, pancreas, spleen, adrenal glands, kidneys, and ureters are unremarkable for noncontrast exam. Again heavy scattered vascular calcifications without AAA. Osseous structures intact again with mild degenerative changes throughout the spine and both hips. Impression: 1. Borderline cardiomegaly with increasing pericardial effusion. Echocardiogram may yield further information. Also worsening moderate bibasilar effusions with compressive atelectasis concerning for cardiac decompensation/CHF. Superimposed pneumonia not completely excluded. 2. Again left lower quadrant peritoneal dialysis catheter with small free fluid. New small free air which may be related. Perforated GI tract not completely excluded. 3. New marked diffuse fecal stasis. 4. New marked distended urinary bladder. Rule out outlet obstruction versus neurogenic bladder. 5. Again chronic findings including extensive arteriosclerotic disease, bilateral renal atrophy, and chronic bony findings.
--- NOTE | 2022-05-13 08:33 | XRAY ---
Indication: Short of breath. Comparison: March 11, 2022 Portable chest again demonstrates moderate bibasilar effusions/atelectasis, stable on the right and mildly improved on the left. Heart not enlarged. Bony thorax intact. No new cardiopulmonary abnormalities.
[2022-05-13 09:12] LABS: Slide Review 1 YES
[2022-05-13] MEDS ORDERED: PIPERACILLIN/TAZOBACTAM 3.375 GM in Sodium Chloride 100ML MINI-BAG PLUS 100 ML IV ONE (09:49)
[2022-05-13] MEDS ORDERED: Sodium Chloride 100ML MINI-BAG PLUS 100 ML IV ONE (09:59)
[2022-05-13] MEDS ORDERED: PIPERACILLIN/TAZOBACTAM IV ONE (09:59)
[2022-05-13 10:16] LABS: INFLUENZA A NEGATIVE (NEGATIVE); INFLUENZA B NEGATIVE (NEGATIVE); RESPIRATORY SYNCTIAL VIRUS NEGATIVE (Negative); SARS-CoV-2 Xpert Express NEGATIVE (NEGATIVE)
[2022-05-13] MEDS ORDERED: MORPHINE SULFATE 4 MG INJ IV PRN (11:04)
[2022-05-13] MEDS ORDERED: HUMALOG SQ PRN (11:04)
[2022-05-13] MEDS ORDERED: Zofran 4 MG/2 ML VIAL IV PRN (11:04)
[2022-05-13] MEDS ORDERED: DUONEB 0.5-3 MG/3 ml Neb IH SCH (11:04)
[2022-05-13 11:32] LABS: Bacteria RARE /HPF (NEGATIVE); Mucus SLIGHT /HPF (NEGATIVE)
[2022-05-13 11:34] LABS: Appearance CLEAR (CLEAR); Bilirubin NEGATIVE (NEGATIVE); Glucose 100 mg/dL (NEGATIVE); Ketones NEGATIVE (NEGATIVE); Nitrite NEGATIVE (NEGATIVE); Ph 8.5 (5-6); Protein,Urine Dip 100 (Negative); RBC NEGATIVE Ery/ul (0-5); Urine Cultured Indicated? NO; Urobilinogen 0.2 mg/dL (0-1)
[2022-05-13 11:35] LABS: Dipstick done @ ? MAIN LAB
[2022-05-13] MEDS: solu-MEDROL 60 MG, Sterile H2O 10 ml 2 ML IV SCH ×4 (12:37→17:23)
[2022-05-13] MEDS ORDERED: PROVENTIL 2.5 MG/3 ML NEB IH PRN (12:39)
[2022-05-13] MEDS ORDERED: MEDICATION INTERVENTION MC SCH (13:00)
[2022-05-13] MEDS ORDERED: Protonix 40MG Tablet PO SCH (14:00)
[2022-05-13] MEDS ORDERED: ECOTRIN 81 MG PO SCH (14:00)
[2022-05-13] MEDS ORDERED: COREG 12.5 MG PO SCH (14:00)
[2022-05-13] MEDS ORDERED: CARDURA 2 MG PO SCH (14:00)
[2022-05-13] MEDS ORDERED: Klor Con PO SCH (14:00)
[2022-05-13] MEDS ORDERED: MAG-OX 400 PO SCH (14:00)
[2022-05-13] MEDS ORDERED: NON-FORMULARY ITEM (Potassium Chloride [Potassium Chloride] 20 MEQ Tab.Er.Prt) PO SCH (14:00)
[2022-05-13] MEDS ORDERED: Zestril 20 MG PO SCH (14:00)
[2022-05-13] MEDS ORDERED: Imdur 60MG PO SCH (14:00)
[2022-05-13] MEDS ORDERED: Cordarone 200 MG PO SCH (14:00)
[2022-05-13] MEDS ORDERED: ELIQUIS 2.5 MG TABLET PO SCH ×2 (14:00→22:00)
[2022-05-13] MEDS ORDERED: VENTOLIN COMMON CANISTER IH PRN (14:00)
[2022-05-13] MEDS ORDERED: CLONIDINE 0.1 MG TABLET PO SCH (15:00)
[2022-05-13] MEDS ORDERED: Apresoline 25 MG TABLET PO SCH (15:00)
[2022-05-13] MEDS ORDERED: LASIX 20 MG PO SCH (17:00)
[2022-05-13] MEDS ORDERED: FLUTICASONE-SALMETEROL 250-50 IH SCH (19:00)
[2022-05-13] MEDS ORDERED: Advair Hfa 115/21 Common canister IH SCH (19:00)
[2022-05-13] MEDS ORDERED: PROVENTIL 2.5 MG/3 ML NEB IH SCH (19:00)
[2022-05-13 20:05] VITALS: BP 187/102; PULSE 93; O2SAT 96
[2022-05-13] MEDS ORDERED: MINOXIDIL 2.5 MG PO SCH (22:00)
[2022-05-13] MEDS ORDERED: NON-FORMULARY ITEM (Carvedilol [Carvedilol] 25 MG Tablet) PO SCH (22:00)
[2022-05-13] MEDS ORDERED: SODIUM CHLORIDE MINI IV SCH (22:00)
[2022-05-13] MEDS ORDERED: Piperacillin/Tazobactam 2.25 GM 2.25 GM in Sodium Chloride 100ML MINI-BAG PLUS 100 ML IV SCH (22:00)
[2022-05-13] MEDS ORDERED: TAZOBACTAM IV SCH (22:00)
[2022-05-13] MEDS ORDERED: Pepcid 20 MG VIAL IV SCH (22:00)
[2022-05-13] MEDS ORDERED: PIPERACILLIN IV SCH (22:00)
[2022-05-14] MEDS ORDERED: AMIODARONE HCL 400 MG PO SCH (10:00)
[2022-05-14] MEDS ORDERED: NON-FORMULARY ITEM (Esomeprazole Magnesium [Nexium] 40 MG Capsule.Dr) PO SCH (10:00)
--- NOTE | 2022-06-09 11:59 | SSS ---
ADMISSION DIAGNOSES: 1) Elevated D-dimer. 2) Elevated troponin. 3) Peritoneal dialysis catheter. 4) Chronic kidney disease on dialysis. 5) Chronic obstructive pulmonary disease. 6) Congestive heart failure. DISCHARGE DIAGNOSES: 1) ELEVATED D-DIMER. 2) ELEVATED TROPONIN. 3) PERITONEAL DIALYSIS CATHETER. 4) CHRONIC KIDNEY DISEASE ON DIALYSIS. 5) CHRONIC OBSTRUCTIVE PULMONARY DISEASE. 6) CONGESTIVE HEART FAILURE. HOSPITAL COURSE: The patient is a 57-year-old male with no local physician who presented to the emergency room on the date of admission. He complained in the emergency department that he had shortness of breath as well as back pain. He had not had any trauma. He required 3 liters of oxygen via nasal cannula in the emergency department. He had some tenderness in the right side of his abdomen. He has peritoneal dialysis. He underwent work up in the emergency department which showed pleural effusions consistent with volume overload with borderline oxygenation on exam. He also expectedly had renal failure with a creatinine of 6 in line with his chronic kidney failure. He had an elevated troponin. He was attempted to be transferred from the emergency department by Dr. Pardo but there was no bed availability but he was accepted at [facility] in [place]. He was kept on the floor on a transfer list and then was transferred later on that day and was not seen by myself during this hospital stay but again just kept until transfer bed available due to his multiple medical problems. He was transported to [address] by ambulance. The accepting physician was Dr. Sanchez at [facility].
== END 2022-05-13 20:25 | disposition home or self-care (01) ==
LOC: ED 07:19 → MED SURG 11:03
PROVIDERS: ADMIT Family Medicine; ATTEND Family Medicine
DX: R79.89 Other specified abnormal findings of blood chemistry (principal); R77.8 Other specified abnormalities of plasma proteins; R07.9 Chest pain, unspecified; R06.02 Shortness of breath; E11.22 Type 2 diabetes mellitus with diabetic chronic kidney disease; I13.0 Hypertensive heart and chronic kidney disease with heart failure and stage 1 through stage 4 chronic kidney disease, or unspecified chronic kidney disease; N18.9 Chronic kidney disease, unspecified; I50.9 Heart failure, unspecified; J44.9 Chronic obstructive pulmonary disease, unspecified; Z79.01 Long term (current) use of anticoagulants; Z79.899 Other long term (current) drug therapy; Z72.0 Tobacco use; Z99.2 Dependence on renal dialysis
CPT/HCPCS: 0241U; 36000; 36415; 71045; 74176; 80053; 81015; 82150; 82947; 83605; 83690; 83880; 84484; 85025; 85379; 93005; 93268; 94640; 94760; 96365; 96374; 96375; 99285; G0378; J2270; J2405; J2930; J7609; A9270-GY

== ENCOUNTER 2022-05-26 02:19 | Emergency (ER) | payer MEDICARE ==
[2022-05-26 02:54] LABS: Absolute Neutrophil Ct (ANC) 6.27 x10^3/uL (1.4-6.9); Basophil (Absolute #) 0.03 x10^3/uL (0-0.4); Eosinophil % 3.6 % (0.00-5.0); Eosinophil (Absolute #) 0.31 x10^3/uL (0-0.5); Hematocrit 27.3 % (42-50); Hemoglobin 8.6 g/dL (12.5-18.0); Lymphocyte (Absolute #) 1.25 x10^3/uL (1.0-4.6); Lymphocytes % 14.4 % (24.0-44.0); Mean Cell Volume 90.7 fL (78-100); Mean Corpuscular Hemoglobin 28.6 pg (26-32); Mean Corpuscular Hgb Concent. 31.5 g/dL (32-36); Mean Platelet Volume 10.8 fL (7.5-11.0); Monocyte (Absolute #) 0.74 x10^3/uL (0.0-1.3); Monocytes % 8.5 % (0.0-12.0); Neutrophil % 72.5 % (36.0-66.0); Platelet Count 175 x10^3/uL (150-450); Red Blood Count 3.01 x10^6/uL (4.1-5.6); Red Cell Distribution Width 14.5 % (11.5-14.0); White Blood Count 8.7 x10^3/uL (4.0-10.5)
[2022-05-26 03:10] LABS: ALBUMIN 1.9 g/dL (3.5-5.0); ANION GAP 5.5 MEQ/L (5-15); BILIRUBIN,TOTAL 0.4 mg/dL (0.2-1.3); Calcium 6.9 mg/dL (8.4-10.2); Creatinine 1 5.42 mg/dL (0.66-1.25); EST GLOMERULAR FILTRATION RATE 11.7 ML/MIN; Total Protein 4.8 g/dL (6.3-8.2)
--- NOTE | 2022-05-26 03:12 | ERPHSYRPT ---
- History of Present Illness Source: patient, EMS Exam Limitations: no limitations Patient Subjective Stated Complaint: per ems they were intially called for stroke like symptoms, upon assessment pt called ambulance for generalized weakness, pt as not gotten out of bed all day, pt is dialysis patient Triage Nursing Assessment: pt arrives to ED via [facility] ambulance, alert and oriented x3, pt c/o generalized weakness that started today, pt is a dialysis patient that goes MWF, pt did not go today d/t being to weak, pt vitals wnl, lung sounds clear, hand pca equal and strong bilaterally, pupils PERRL, pt denies fever, sob or new cough, pt smokes 1 pack of cigarettes daily, pt c/o low back pain 12/26 Physician History: 57 yo wm w ESRD on dialysis M/W/F presents per [facility] ambulance service w generalized lethargy/facial numbness/trouble w speech starting yesterday at 13:00. EMS stated that they transport pt frequently and that he is at his baseline. He missed dialysis today. Pt arrived alert/oriented x3 wo focal weakness. He denies CANO/fever/N/V/D/chest pain. Timing/Duration: other (13:00 yesterday) Severity: mild Modifying Factors: Improves With: nothing Associated Symptoms: denies symptoms, malaise Allergies/Adverse Reactions: Sulfa (Sulfonamide Antibiotics) Allergy (Verified 05/26/22 08:54) Home Medications: Esomeprazole Magnesium [Nexium] 40 mg PO DAILY 09/08/16 [History] Aspirin EC 81 mg [Ecotrin 81 mg] 81 mg PO DAILY 01/24/21 [History] Fluticasone/Salmeterol [Advair 250-50 Diskus] 1 each IH BID 02/22/21 [History] carvediloL [Carvedilol] 25 mg PO BID 01/16/22 [History] Albuterol 2.5 mg/3 ml Neb [Proventil 2.5 mg/3 ml Neb] 1 vial PO Q6H PRN PRN 05/13/22 [History] Amiodarone HCl 400 mg PO DAILY 05/13/22 [History] Apixaban [Eliquis] 2.5 mg PO BID 05/13/22 [History] Clonidine HCl 0.1 mg [Clonidine 0.1 mg Tablet] 0.1 mg PO TID 05/13/22 [History] Doxazosin Mesylate 2 mg [Cardura 2 mg] 2 mg PO BID 05/13/22 [History] Furosemide 20 mg [Lasix 20 mg] 60 mg PO BID 05/13/22 [History] Hydralazine HCl 25 mg PO TID 05/13/22 [History] Isosorbide Mononitrate 60 mg [Imdur 60MG] 60 mg PO DAILY 05/13/22 [History] Lisinopril 20 mg [Zestril 20 MG] 20 mg PO DAILY 05/13/22 [History] Magnesium Oxide 400 mg [Mag-Ox 400] 800 mg PO DAILY 05/13/22 [History] Potassium Chloride 20 mg PO DAILY 05/13/22 [History] minoxidiL [Minoxidil] 5 mg PO BID 05/13/22 [History] Hx Tetanus, Diphtheria Vaccination/Date Given: Yes Hx Influenza Vaccination/Date Given: Yes Hx Pneumococcal Vaccination/Date Given: Yes Immunizations Up to Date: Yes Travel Risk - International Travel Have you traveled outside of the country in past 3 weeks: No - Coronavirus Screening Are you exhibiting any of the following symptoms?: No Close contact with a COVID-19 positive Pt in past 14-21 Days: No - Vaccine Status Have you recieved a Covid-19 vaccination: Yes [employer]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 [employer]: [employer] - Vaccination Dates Date of 2cond Vaccination (if applicable): Unknown - Review of Systems Constitutional: No Symptoms, Lethargy, Malaise, Weakness Eyes: No Symptoms Ears, Nose, & Throat: No Symptoms Respiratory: No Symptoms Cardiac: No Symptoms Abdominal/Gastrointestinal: No Symptoms Genitourinary Symptoms: No Symptoms Musculoskeletal: No Symptoms Skin: No Symptoms Neurological: No Symptoms, Lethargy Psychological: No Symptoms Endocrine: No Symptoms Hematologic/Lymphatic: No Symptoms Immunological/Allergic: No Symptoms - Past Medical History Pertinent Past Medical History: Yes Neurological History: Stroke ENT History: No Pertinent History Cardiac History: High Cholesterol, Hypertension Respiratory History: COPD Endocrine Medical History: Diabetes Type II, Liver Disease Musculoskeletal History: No Pertinent History GI Medical History: GERD, Gallbladder Disease History: Dialysis, Renal Disease Psycho-Social History: Depression, Other Male Reproductive Disorders: No Pertinent History Other Medical History: schizophrenia, RLS - Past Surgical History Past Surgical History: Yes Neuro Surgical History: No Pertinent History Cardiac: No Pertinent History Respiratory: No Pertinent History Gastrointestinal: Appendectomy, Cholecystectomy, Hernia Repair Genitourinary: No Pertinent History Musculoskeletal: Orthopedic Surgery Male Surgical History: Vasectomy Other Surgical History: left knee, right knee, bilateral carpal tunnel, peritoneal dialysis catheter placement in LLQ - Social History Smoking Status: Current every day smoker How long have you smoked: 40 YEARS Exposure to second hand smoke: Yes Drug Use: marijuana Patient Lives Alone: Yes - Nursing Vital Signs Nursing Vital Signs: Initial Vital Signs Temperature 97.2 F 05/26/22 02:22 Pulse Rate 89 05/26/22 02:22 Respiratory Rate 18 05/26/22 02:22 Blood Pressure 126/77 05/26/22 02:22 O2 Sat by Pulse Oximetry 97 05/26/22 02:22 Pain Scale Pain Intensity 7 WNL - Physical Exam General Appearance: no apparent distress, cachetic Eye Exam: PERRL/EOMI, eyes nml inspection Ears, Nose, Throat Exam: normal ENT inspection, TMs normal, pharynx normal, moist mucous membranes Neck Exam: normal inspection, non-tender, supple, full range of motion, No meningismus, No mass, No Brudzinski, No Kernig's Respiratory Exam: airway intact, wheezing (Occ wheeze B), No respiratory distress Cardiovascular Exam: regular rate/rhythm, normal heart sounds, normal peripheral pulses, capillary refill <2 sec, No murmur Gastrointestinal/Abdomen Exam: soft, normal bowel sounds Back Exam: normal inspection, normal range of motion, No CVA tenderness Extremity Exam: normal inspection, normal range of motion Neurologic Exam: alert, oriented x 3, cooperative, surgery attendant II-XII nml as tested, sensation nml, other (Flat affect), No motor deficits, No sensory deficit, No disoriented, No facial droop, No slurred speech, No aphasia, No dysarthria Skin Exam: pale Lymphatic Exam: No adenopathy SpO2 Interpretation: normal SpO2: 97 O2 Delivery: Room Air - Course Nursing assessment & vital signs reviewed: Yes EKG Interpreted by Me: RATE (NSR/Normal QT-QTc/Poor R wave progression/IVCD/No acute ST segment changes) - Radiology Exams Chest X-ray Interpretation: Interpreted by me (B pleural effusions/Atelectasis/Dialysis catheter) - CT Exams Head CT Interpretation: Tele-radiologist Report (CT head neg) Ordered Tests: Medication Summary Discontinued Medications Generic Name Dose Route Start Last Admin Trade Name Freq PRN Reason Stop Dose Admin Al Hydrox/Mg Hydrox/Simethicone Confirm 05/26/22 05:48 Mag Hydrox/Al Hydrox/Simeth 30 Ml Udcup Administered 05/26/22 05:49 Dose 30 ml .ROUTE .STK-MED ONE Al Hydrox/Mg Hydrox/Simethicone 30 ml 05/26/22 05:50 05/26/22 05:56 Mag Hydrox/Al Hydrox/Simeth 30 Ml Udcup PO 05/26/22 05:51 30 ml STAT ONE Administration Potassium Chloride 40 meq 05/26/22 03:27 05/26/22 03:29 Potassium Chloride Tab 10 Meq Tab PO 05/26/22 03:28 40 meq STAT ONE Administration Potassium Chloride Confirm 05/26/22 03:29 Potassium Chloride Tab 10 Meq Tab Administered 05/26/22 03:30 Dose 40 meq PO .STK-MED ONE Lab/Rad Data: Laboratory Result Diagrams 05/26/22 02:51 05/26/22 02:51 Laboratory Results 05/26/22 05/26/22 05/26/22 Range/Units 04:17 03:00 02:51 WBC (4.0-10.5) x10^3/uL RBC (4.1-5.6) x10^6/uL Hgb (12.5-18.0) g/dL Hct (42-50) % MCV (78-100) fL MCH (26-32) pg MCHC (32-36) g/dL RDW (11.5-14.0) % Plt Count (150-450) x10^3/uL MPV (7.5-11.0) fL Gran % (36.0-66.0) % Immature Gran % (Auto) (0.00-0.4) % Nucleat RBC Rel Count (0.00-0.1) % Eos # (Auto) (0-0.5) x10^3/uL Immature Gran # (Auto) (0.00-0.03) x10^3u/L Absolute Lymphs (auto) (1.0-4.6) x10^3/uL Absolute Monos (auto) (0.0-1.3) x10^3/uL Absolute Nucleated RBC (0.00-0.01) x10^3u/L Lymphocytes % (24.0-44.0) % Monocytes % (0.0-12.0) % Eosinophils % (0.00-5.0) % Basophils % (0.0-0.4) % Absolute Granulocytes (1.4-6.9) x10^3/uL Basophils # (0-0.4) x10^3/uL Sodium (137-145) mmol/L Potassium (3.5-5.1) mmol/L Chloride (98-107) mmol/L Carbon Dioxide (22-30) mmol/L Anion Gap (5-15) MEQ/L BUN (9-20) mg/dL Creatinine (0.66-1.25) mg/dL Estimated GFR ML/MIN Glucose (74-106) mg/dL Lactic Acid 1.0 (0.4-2.0) Calcium (8.4-10.2) mg/dL Magnesium (1.6-2.3) mg/dL Total Bilirubin (0.2-1.3) mg/dL AST (17-59) U/L ALT (0-50) U/L Alkaline Phosphatase (38-126) U/L Troponin I 0.270 H* (0.000-0.034) ng/mL Serum Total Protein (6.3-8.2) g/dL Albumin (3.5-5.0) g/dL Influenza Type A Ag NEGATIVE (NEGATIVE) Influenza Type B Ag NEGATIVE (NEGATIVE) RSV (PCR) NEGATIVE (Negative) SARS-CoV-2 (PCR) NEGATIVE (NEGATIVE) 05/26/22 05/26/22 05/26/22 Range/Units 02:51 02:51 02:51 WBC (4.0-10.5) x10^3/uL RBC (4.1-5.6) x10^6/uL Hgb (12.5-18.0) g/dL Hct (42-50) % MCV (78-100) fL MCH (26-32) pg MCHC (32-36) g/dL RDW (11.5-14.0) % Plt Count (150-450) x10^3/uL MPV (7.5-11.0) fL Gran % (36.0-66.0) % Immature Gran % (Auto) (0.00-0.4) % Nucleat RBC Rel Count (0.00-0.1) % Eos # (Auto) (0-0.5) x10^3/uL Immature Gran # (Auto) (0.00-0.03) x10^3u/L Absolute Lymphs (auto) (1.0-4.6) x10^3/uL Absolute Monos (auto) (0.0-1.3) x10^3/uL Absolute Nucleated RBC (0.00-0.01) x10^3u/L Lymphocytes % (24.0-44.0) % Monocytes % (0.0-12.0) % Eosinophils % (0.00-5.0) % Basophils % (0.0-0.4) % Absolute Granulocytes (1.4-6.9) x10^3/uL Basophils # (0-0.4) x10^3/uL Sodium 129 L (137-145) mmol/L Potassium 2.1 L* (3.5-5.1) mmol/L Chloride 95 L (98-107) mmol/L Carbon Dioxide 30 (22-30) mmol/L Anion Gap 5.5 (5-15) MEQ/L BUN 29 H (9-20) mg/dL Creatinine 5.42 H (0.66-1.25) mg/dL Estimated GFR 11.7 ML/MIN Glucose 103 (74-106) mg/dL Lactic Acid (0.4-2.0) Calcium 6.9 L (8.4-10.2) mg/dL Magnesium 1.9 (1.6-2.3) mg/dL Total Bilirubin 0.40 (0.2-1.3) mg/dL AST 23 (17-59) U/L ALT 6 (0-50) U/L Alkaline Phosphatase 81 (38-126) U/L Troponin I 0.283 H* (0.000-0.034) ng/mL Serum Total Protein 4.8 L (6.3-8.2) g/dL Albumin 1.9 L (3.5-5.0) g/dL Influenza Type A Ag (NEGATIVE) Influenza Type B Ag (NEGATIVE) RSV (PCR) (Negative) SARS-CoV-2 (PCR) (NEGATIVE) 05/26/22 Range/Units 02:51 WBC 8.7 (4.0-10.5) x10^3/uL RBC 3.01 L (4.1-5.6) x10^6/uL Hgb 8.6 L (12.5-18.0) g/dL Hct 27.3 L (42-50) % MCV 90.7 (78-100) fL MCH 28.6 (26-32) pg MCHC 31.5 L (32-36) g/dL RDW 14.5 H (11.5-14.0) % Plt Count 175 (150-450) x10^3/uL MPV 10.8 (7.5-11.0) fL Gran % 72.5 H (36.0-66.0) % Immature Gran % (Auto) 0.7 H (0.00-0.4) % Nucleat RBC Rel Count 0.0 (0.00-0.1) % Eos # (Auto) 0.31 (0-0.5) x10^3/uL Immature Gran # (Auto) 0.06 H (0.00-0.03) x10^3u/L Absolute Lymphs (auto) 1.25 (1.0-4.6) x10^3/uL Absolute Monos (auto) 0.74 (0.0-1.3) x10^3/uL Absolute Nucleated RBC 0.00 (0.00-0.01) x10^3u/L Lymphocytes % 14.4 L (24.0-44.0) % Monocytes % 8.5 (0.0-12.0) % Eosinophils % 3.6 (0.00-5.0) % Basophils % 0.3 (0.0-0.4) % Absolute Granulocytes 6.27 (1.4-6.9) x10^3/uL Basophils # 0.03 (0-0.4) x10^3/uL Sodium (137-145) mmol/L Potassium (3.5-5.1) mmol/L Chloride (98-107) mmol/L Carbon Dioxide (22-30) mmol/L Anion Gap (5-15) MEQ/L BUN (9-20) mg/dL Creatinine (0.66-1.25) mg/dL Estimated GFR ML/MIN Glucose (74-106) mg/dL Lactic Acid (0.4-2.0) Calcium (8.4-10.2) mg/dL Magnesium (1.6-2.3) mg/dL Total Bilirubin (0.2-1.3) mg/dL AST (17-59) U/L ALT (0-50) U/L Alkaline Phosphatase (38-126) U/L Troponin I (0.000-0.034) ng/mL Serum Total Protein (6.3-8.2) g/dL Albumin (3.5-5.0) g/dL Influenza Type A Ag (NEGATIVE) Influenza Type B Ag (NEGATIVE) RSV (PCR) (Negative) SARS-CoV-2 (PCR) (NEGATIVE) - Progress Progress: improved Progress Note: 05/26/22 05:01 Pt wo focal weakness or evidence of CVA in ER. Symptoms most likely due to chronic renal failure and noncompliance. [facility] 2-5 day wait for a bed. [facility] pt because he does not need emergent dialysis. Pt not hyperkalemic,not hypertensive, and VSS, so ok to discharge for dialysis on 05/27/22 morning. Hypokalemia treated w 40meq po KCl. 05/27/22 18:00 05/28/22 02:22 Counseled pt/family regarding: lab results, diagnosis, rad results - Departure Departure Disposition: Home Clinical Impression: Acute renal failure on dialysis, Lethargy, Hypokalemia Condition: Stable Critical Care Time: No Referrals: PREMA PRINGLE NP [Primary Care Provider] - Follow up/PCP as directed Instructions: Hemodialysis (DC), Kidney Failure (DC) Additional Instructions: Make sure that you make it to your dialysis appointment tomorrow Return to ER as needed
[2022-05-26 03:23] LABS: Potassium 2.1 mmol/L (3.5-5.1)
[2022-05-26] MEDS ORDERED: Klor Con PO ONE ×2 (03:27→03:29)
[2022-05-26 03:30] LABS: INFLUENZA A NEGATIVE (NEGATIVE); INFLUENZA B NEGATIVE (NEGATIVE); RESPIRATORY SYNCTIAL VIRUS NEGATIVE (Negative); SARS-CoV-2 Xpert Express NEGATIVE (NEGATIVE)
[2022-05-26 05:16] VITALS: O2SAT 97
[2022-05-26] MEDS ORDERED: MAALOX ES 30 ML UNIT DOSE ONE (05:48)
[2022-05-26] MEDS ORDERED: MAALOX ES 30 ML UNIT DOSE PO ONE (05:50)
[2022-05-26 05:57] VITALS: BP 155/68; PULSE 78
--- NOTE | 2022-05-26 08:59 | XRAY ---
Indication: Lethargy. Comparison: May 13, 2022 Portable chest again demonstrates moderate bibasilar effusions/atelectasis, stable to minimally improved. Heart not enlarged with new right double lumen dialysis catheter. No new cardiopulmonary abnormalities.
--- NOTE | 2022-05-26 08:59 | XRAY ---
Indication: Lethargy and weakness. Multiple contiguous axial images obtained through the head without contrast. Comparison: January 16, 2022 Stable age-appropriate global atrophy, mild periventricular degenerative micro-ischemia, remote lacunar infarct left internal capsule, and small focus old infarct right cerebellum. No acute intracranial hemorrhage, abnormal extra-axial fluid collection, or mass effect. Fourth ventricle is midline without hydrocephalus. Bony calvarium intact. Again mild mucosal thickening floor right maxillary sinus. Remaining paranasal sinuses and mastoid air cells are clear. Impression: Again nonacute senile brain with remote lacunar infarct left internal capsule, small old infarct right cerebellum, and right maxillary sinus disease. Comment: Preliminary interpretation made by [facility]. No critical discrepancy.
== END 2022-05-26 05:58 | disposition home or self-care (01) ==
LOC: ED 02:19
DX: I12.0 Hypertensive chronic kidney disease with stage 5 chronic kidney disease or end stage renal disease (principal); E11.22 Type 2 diabetes mellitus with diabetic chronic kidney disease; N18.6 End stage renal disease; N17.9 Acute kidney failure, unspecified; Z99.2 Dependence on renal dialysis; Z91.15 Patient's noncompliance with renal dialysis; R53.83 Other fatigue; E87.6 Hypokalemia; R53.1 Weakness; R20.2 Paresthesia of skin; R47.9 Unspecified speech disturbances; Z79.899 Other long term (current) drug therapy; Z79.01 Long term (current) use of anticoagulants; E78.5 Hyperlipidemia, unspecified; Z72.0 Tobacco use; Z20.828 Contact with and (suspected) exposure to other viral communicable diseases
CPT/HCPCS: 0241U; 36000; 36415; 70450; 71045; 80053; 83605; 83735; 84484; 85025; 93005; 99284; A9270-GY

== ENCOUNTER 2022-05-26 08:48 | Emergency (ER) | payer MEDICARE ==
[2022-05-26] MEDS ORDERED: Sodium Chloride 0.9% W/ 20 mEq KCl/LITER 1,000 ML IV SCH (09:00)
[2022-05-26 09:27] LABS: Absolute Neutrophil Ct (ANC) 5.66 x10^3/uL (1.4-6.9); Basophil (Absolute #) 0.01 x10^3/uL (0-0.4); Eosinophil % 1.4 % (0.00-5.0); Hematocrit 32.6 % (42-50); Hemoglobin 10.3 g/dL (12.5-18.0); Lymphocyte (Absolute #) 0.87 x10^3/uL (1.0-4.6); Lymphocytes % 12.5 % (24.0-44.0); Mean Cell Volume 89.6 fL (78-100); Mean Corpuscular Hemoglobin 28.3 pg (26-32); Mean Corpuscular Hgb Concent. 31.6 g/dL (32-36); Mean Platelet Volume 10.8 fL (7.5-11.0); Monocyte (Absolute #) 0.27 x10^3/uL (0.0-1.3); Monocytes % 3.9 % (0.0-12.0); Neutrophil % 81.2 % (36.0-66.0); Platelet Count 234 x10^3/uL (150-450); Red Blood Count 3.64 x10^6/uL (4.1-5.6); Red Cell Distribution Width 14.4 % (11.5-14.0)
[2022-05-26] MEDS ORDERED: Ativan 2 MG/1 ML VIAL IM ONE (09:34)
[2022-05-26] MEDS ORDERED: Ativan 2 MG/1 ML VIAL ONE (09:38)
[2022-05-26 09:58] LABS: INR 1.07 (0.8-3.0); PROTIME 11.3 SECONDS (9.4-12.5); PTT 23.3 SECONDS (25.1-36.5)
--- NOTE | 2022-05-26 09:59 | XRAY ---
Indication: Short of breath. Comparison: Taken earlier in the day. Portable chest unchanged again demonstrating moderate bibasilar effusions/atelectasis and right double lumen dialysis catheter. Heart not enlarged. No new cardiopulmonary abnormalities.
[2022-05-26 10:01] LABS: D-DIMER QUANTITATIVE 26.58 mg/L (0.0-0.50)
[2022-05-26 10:05] LABS: Potassium 2.7 mmol/L (3.5-5.1)
[2022-05-26 10:07] LABS: ANION GAP 9.8 MEQ/L (5-15); BILIRUBIN,TOTAL 0.5 mg/dL (0.2-1.3); Calcium 7.2 mg/dL (8.4-10.2); Creatinine 1 6.05 mg/dL (0.66-1.25); EST GLOMERULAR FILTRATION RATE 10.3 ML/MIN; MAGNESIUM 2.2 mg/dL (1.6-2.3)
[2022-05-26 10:24] VITALS: O2SAT 100
--- NOTE | 2022-05-26 10:36 | ERPHSYRPT ---
- History of Present Illness Time Seen by Provider: 05/26/22 09:10 Exam Limitations: clinical condition Patient Subjective Stated Complaint: C/O weakness with some SOB Triage Nursing Assessment: Patient brought back to ED in a w/c. Patient has to be assisted into the bed by staff. No SOB noted but patient indicates he is SOB; 02 sats 99% on room air. Permacath for hemodialysis noted to right upper chest area; dressing C/D/I. Skin tone knox with yellow tint to face. Patient requesting to use the bedpan; had a small liquid stool, brown in color with some black specks noted in stool. Dressing noted to LLQ of abdomen from removal of old peritoneal dialysis catheter. Skin tear noted to right upperr arm (1cm X 0.2cm) and left lower arm (1.5cm X 0.5cm). 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 He was evaluated he was found to be hyper bow Madelyn make he also had missed his dialysis yesterday and was complaining of shortness of breath it turns out he had been generally very weak all day had not had not gotten out of bed. He presented with a complaint of shortness of breath and concern for stroke symptoms. His symptoms included facial numbness and some tro uble speaking however examination at the time he was seen earlier today revealed no evidence of CVA. His chest x-ray did reveal some bilateral pleural effusions greater on the right than the left and his O2 sats however remained in the high 90s. He could not get a ride and sat in the emergency room for several hours was noted to be extremely weak and slow to respond and was readmitted to the ER. He gets his dialysis at [facility] and is Dr. Manzano's patients. Attempts were made at the time he was in the ER earlier to transfer him to the hospital capable of inpatient dialysis but [place] had no beds and regional felt that if he would be able to get to [facility] early this morning that he would be able to be dialyzed and would probably be just fine. At the time I saw him he was slow to respond but alert he did have some hypotension with blood pressures in the 60s and 70s his repeat labs were pending. Timing/Duration: today Severity: severe Associated Symptoms: shortness of breath Allergies/Adverse Reactions: Sulfa (Sulfonamide Antibiotics) Allergy (Verified 05/26/22 08:54) Home Medications: Esomeprazole Magnesium [Nexium] 40 mg PO DAILY 09/08/16 [History] Aspirin EC 81 mg [Ecotrin 81 mg] 81 mg PO DAILY 01/24/21 [History] Fluticasone/Salmeterol [Advair 250-50 Diskus] 1 each IH BID 02/22/21 [History] carvediloL [Carvedilol] 25 mg PO BID 01/16/22 [History] Albuterol 2.5 mg/3 ml Neb [Proventil 2.5 mg/3 ml Neb] 1 vial PO Q6H PRN PRN 05/13/22 [History] Amiodarone HCl 400 mg PO DAILY 05/13/22 [History] Apixaban [Eliquis] 2.5 mg PO BID 05/13/22 [History] Clonidine HCl 0.1 mg [Clonidine 0.1 mg Tablet] 0.1 mg PO TID 05/13/22 [History] Doxazosin Mesylate 2 mg [Cardura 2 mg] 2 mg PO BID 05/13/22 [History] Furosemide 20 mg [Lasix 20 mg] 60 mg PO BID 05/13/22 [History] Hydralazine HCl 25 mg PO TID 05/13/22 [History] Isosorbide Mononitrate 60 mg [Imdur 60MG] 60 mg PO DAILY 05/13/22 [History] Lisinopril 20 mg [Zestril 20 MG] 20 mg PO DAILY 05/13/22 [History] Magnesium Oxide 400 mg [Mag-Ox 400] 800 mg PO DAILY 05/13/22 [History] Potassium Chloride 20 mg PO DAILY 05/13/22 [History] minoxidiL [Minoxidil] 5 mg PO BID 05/13/22 [History] Hx Tetanus, Diphtheria Vaccination/Date Given: Yes Hx Influenza Vaccination/Date Given: Yes Hx Pneumococcal Vaccination/Date Given: Yes Immunizations Up to Date: Yes Travel Risk - International Travel Have you traveled outside of the country in past 3 weeks: No - Coronavirus Screening Are you exhibiting any of the following symptoms?: Yes Symptoms: Shortness of Breath Close contact with a COVID-19 positive Pt in past 14-21 Days: No - Vaccine Status Have you recieved a Covid-19 vaccination: Yes 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: [id number] - Vaccination Dates Date of 2cond Vaccination (if applicable): Unknown - Review of Systems All Other Systems: Unable due to condition - Past Medical History Pertinent Past Medical History: Yes Neurological History: Stroke ENT History: No Pertinent History Cardiac History: High Cholesterol, Hypertension Respiratory History: COPD Endocrine Medical History: Diabetes Type II, Liver Disease Musculoskeletal History: No Pertinent History GI Medical History: GERD, Gallbladder Disease History: Dialysis, Renal Disease Psycho-Social History: Depression, Other Male Reproductive Disorders: No Pertinent History Other Medical History: schizophrenia, RLS, previous peritoneal dialysis but recently changed to peritoneal dialysis (permacath to right upper chest area) - Past Surgical History Past Surgical History: Yes Neuro Surgical History: No Pertinent History Cardiac: No Pertinent History Respiratory: No Pertinent History Gastrointestinal: Appendectomy, Cholecystectomy, Hernia Repair Genitourinary: No Pertinent History Musculoskeletal: Orthopedic Surgery Male Surgical History: Vasectomy Other Surgical History: left knee, right knee, bilateral carpal tunnel, peritoneal dialysis catheter placement in LLQ and removal, permacath placement to right upper chest area - Social History Smoking Status: Current every day smoker How long have you smoked: 40 YEARS Exposure to second hand smoke: Yes Drug Use: marijuana Patient Lives Alone: Yes - Nursing Vital Signs Nursing Vital Signs: Initial Vital Signs Temperature 98.5 F 05/26/22 08:55 Pulse Rate 104 H 05/26/22 08:55 Respiratory Rate 29 H 05/26/22 08:55 Blood Pressure 85/60 05/26/22 08:55 O2 Sat by Pulse Oximetry 99 05/26/22 08:55 Pain Scale Pain Intensity 0 - Physical Exam General Appearance: moderate distress, lethargy, thin Eye Exam: PERRL/EOMI, eyes nml inspection Ears, Nose, Throat Exam: pharynx normal, dry mucous membranes Neck Exam: normal inspection, non-tender, supple, full range of motion Respiratory Exam: respiratory distress (Mild), diminished breath sounds Cardiovascular Exam: regular rate/rhythm, tachycardia Gastrointestinal/Abdomen Exam: soft, normal bowel sounds Back Exam: normal inspection, normal range of motion, No CVA tenderness, No vertebral tenderness Extremity Exam: normal inspection, normal range of motion Neurologic Exam: alert, oriented x 3, motor weakness Skin Exam: normal color, warm, dry SpO2 Interpretation: normal SpO2: 100 O2 Delivery: Room Air - Course Nursing assessment & vital signs reviewed: Yes EKG Interpreted by Me: RATE (111), Sinus Tach, NORMAL AXIS, Other (Prolonged QT interval.poor R wave progression, low voltages. In the extremity leads.) - Radiology Exams Chest X-ray Interpretation: Reviewed by me (There remains bilateral pleural effusions greater on the right than the left) Ordered Tests: Active Orders 24 hr Category Date Time Status CHEST 1 VIEW (PORTABLE) Stat Exams 05/26/22 08:54 Completed AMYLASE Stat Lab 05/26/22 09:20 Completed BLOOD CULTURE Stat Lab 05/26/22 09:20 Received CBC W DIFF Stat Lab 05/26/22 09:20 Completed CK-Creatinine Phosphokinase Stat Lab 05/26/22 09:20 Completed CMP Stat Lab 05/26/22 09:20 Completed D-DIMER QUANTITATIVE Stat Lab 05/26/22 09:20 Completed LIPASE Stat Lab 05/26/22 09:20 Completed Lactic Acid Stat Lab 05/26/22 09:10 Completed MAGNESIUM Stat Lab 05/26/22 09:20 Completed MAGNESIUM Stat Lab 05/26/22 10:07 Received NT PRO BNP Stat Lab 05/26/22 09:20 Completed Occult Blood Stool [FECAL OCCULT BLOOD - SCREENING] Lab 05/26/22 09:11 Completed Stat PROTIME WITH INR Stat Lab 05/26/22 09:20 Completed PTT Stat Lab 05/26/22 09:20 Completed TROPONIN Q4H Lab 05/26/22 09:20 Completed TROPONIN Q4H Lab 05/26/22 13:00 Ordered TROPONIN Q4H Lab 05/26/22 17:00 Ordered UA W/RFX CULTURE Stat Lab 05/26/22 Ordered Medication Summary Discontinued Medications Generic Name Dose Route Start Last Admin Trade Name Freq PRN Reason Stop Dose Admin Potassium Chloride/Sodium Chloride 1,000 mls @ 999 mls/hr 05/26/22 09:00 05/26/22 10:06 Sodium Chloride 0.9% W/ 20 Meq Kcl/Liter IV 05/26/22 10:00 999 mls/hr .Q1H1M MARII Administration Lorazepam 1 mg 05/26/22 09:34 12/08/22 09:39 Lorazepam 2 Mg/1 Ml 2 Mg Vial IM 05/26/22 09:35 1 mg STAT ONE Administration Lorazepam Confirm 05/26/22 09:38 Lorazepam 2 Mg/1 Ml 2 Mg Vial Administered 05/26/22 09:39 Dose 2 mg .ROUTE .STK-MED ONE Lab/Rad Data: Laboratory Result Diagrams 05/26/22 09:20 05/26/22 09:20 Laboratory Results 05/26/22 05/26/22 05/26/22 Range/Units 09:20 09:20 09:20 WBC (4.0-10.5) x10^3/uL RBC (4.1-5.6) x10^6/uL Hgb (12.5-18.0) g/dL Hct (42-50) % MCV (78-100) fL MCH (26-32) pg MCHC (32-36) g/dL RDW (11.5-14.0) % Plt Count (150-450) x10^3/uL MPV (7.5-11.0) fL Gran % (36.0-66.0) % Immature Gran % (Auto) (0.00-0.4) % Nucleat RBC Rel Count (0.00-0.1) % Eos # (Auto) (0-0.5) x10^3/uL Immature Gran # (Auto) (0.00-0.03) x10^3u/L Absolute Lymphs (auto) (1.0-4.6) x10^3/uL Absolute Monos (auto) (0.0-1.3) x10^3/uL Absolute Nucleated RBC (0.00-0.01) x10^3u/L Lymphocytes % (24.0-44.0) % Monocytes % (0.0-12.0) % Eosinophils % (0.00-5.0) % Basophils % (0.0-0.4) % Absolute Granulocytes (1.4-6.9) x10^3/uL Basophils # (0-0.4) x10^3/uL PT 11.3 (9.4-12.5) SECONDS INR 1.07 (0.8-3.0) APTT 23.3 L (25.1-36.5) SECONDS D-Dimer 26.58 H* (0.0-0.50) mg/L Sodium 129 L (137-145) mmol/L Potassium 2.7 L* D (3.5-5.1) mmol/L Chloride 96 L (98-107) mmol/L Carbon Dioxide 26 (22-30) mmol/L Anion Gap 9.8 (5-15) MEQ/L BUN 29 H (9-20) mg/dL Creatinine 6.05 H (0.66-1.25) mg/dL Estimated GFR 10.3 ML/MIN Glucose 190 H (74-106) mg/dL Lactic Acid (0.4-2.0) Calcium 7.2 L (8.4-10.2) mg/dL Magnesium 2.2 (1.6-2.3) mg/dL Total Bilirubin 0.50 (0.2-1.3) mg/dL AST 27 (17-59) U/L ALT 9 (0-50) U/L Alkaline Phosphatase 104 (38-126) U/L Creatine Kinase 66 (55-170) U/L Troponin I 0.284 H* (0.000-0.034) ng/mL NT-Pro-B Natriuret Pep 57965 H (0-900) pg/mL Serum Total Protein 5.0 L (6.3-8.2) g/dL Albumin 2.0 L (3.5-5.0) g/dL Amylase 141 H (30-110) U/L Lipase 57 (23-300) U/L Stool Occult Blood (NEGATIVE) 05/26/22 05/26/22 05/26/22 Range/Units 09:20 09:11 09:10 WBC 7.0 (4.0-10.5) x10^3/uL RBC 3.64 L (4.1-5.6) x10^6/uL Hgb 10.3 L (12.5-18.0) g/dL Hct 32.6 L (42-50) % MCV 89.6 (78-100) fL MCH 28.3 (26-32) pg MCHC 31.6 L (32-36) g/dL RDW 14.4 H (11.5-14.0) % Plt Count 234 (150-450) x10^3/uL MPV 10.8 (7.5-11.0) fL Gran % 81.2 H (36.0-66.0) % Immature Gran % (Auto) 0.9 H (0.00-0.4) % Nucleat RBC Rel Count 0.0 (0.00-0.1) % Eos # (Auto) 0.10 (0-0.5) x10^3/uL Immature Gran # (Auto) 0.06 H (0.00-0.03) x10^3u/L Absolute Lymphs (auto) 0.87 L (1.0-4.6) x10^3/uL Absolute Monos (auto) 0.27 (0.0-1.3) x10^3/uL Absolute Nucleated RBC 0.00 (0.00-0.01) x10^3u/L Lymphocytes % 12.5 L (24.0-44.0) % Monocytes % 3.9 (0.0-12.0) % Eosinophils % 1.4 (0.00-5.0) % Basophils % 0.1 (0.0-0.4) % Absolute Granulocytes 5.66 (1.4-6.9) x10^3/uL Basophils # 0.01 (0-0.4) x10^3/uL PT (9.4-12.5) SECONDS INR (0.8-3.0) APTT (25.1-36.5) SECONDS D-Dimer (0.0-0.50) mg/L Sodium (137-145) mmol/L Potassium (3.5-5.1) mmol/L Chloride (98-107) mmol/L Carbon Dioxide (22-30) mmol/L Anion Gap (5-15) MEQ/L BUN (9-20) mg/dL Creatinine (0.66-1.25) mg/dL Estimated GFR ML/MIN Glucose (74-106) mg/dL Lactic Acid 1.7 (0.4-2.0) Calcium (8.4-10.2) mg/dL Magnesium (1.6-2.3) mg/dL Total Bilirubin (0.2-1.3) mg/dL AST (17-59) U/L ALT (0-50) U/L Alkaline Phosphatase (38-126) U/L Creatine Kinase (55-170) U/L Troponin I (0.000-0.034) ng/mL NT-Pro-B Natriuret Pep (0-900) pg/mL Serum Total Protein (6.3-8.2) g/dL Albumin (3.5-5.0) g/dL Amylase (30-110) U/L Lipase (23-300) U/L Stool Occult Blood NEGATIVE (NEGATIVE) - Progress Progress: unchanged - Departure Departure Disposition: Transfer (Patient will be transferred to the ER at [facility] Dr. Ant Rainey) Clinical Impression: End stage renal disease, Volume depletion, Hypotension, Hypokalemia, Generalized weakness, Hyponatremia Condition: Serious Critical Care Time: Yes Critical Care Time(excluding separately billable procedures): Critical 30-74 mins (45) Referrals: PREMA PRINGLE, [employer] [Primary Care Provider] - Follow up/PCP as directed
[2022-05-26 10:52] LABS: 027 TOX PROD PRESUMPTIVE NEGATIVE (NEGATIVE); TOXIGENIC C. DIFF ORG NEGATIVE (NEGATIVE)
[2022-05-26 11:07] VITALS: BP 70/50; PULSE 84
== END 2022-05-26 10:58 | disposition short-term general hospital (02) ==
LOC: ED 08:48
DX: I12.0 Hypertensive chronic kidney disease with stage 5 chronic kidney disease or end stage renal disease (principal); E11.22 Type 2 diabetes mellitus with diabetic chronic kidney disease; N18.6 End stage renal disease; Z99.2 Dependence on renal dialysis; E86.9 Volume depletion, unspecified; I95.9 Hypotension, unspecified; E87.6 Hypokalemia; R53.1 Weakness; E87.1 Hypo-osmolality and hyponatremia; R53.83 Other fatigue; Z79.01 Long term (current) use of anticoagulants; Z79.899 Other long term (current) drug therapy; E78.5 Hyperlipidemia, unspecified; Z72.0 Tobacco use
CPT/HCPCS: 36415; 71045; 80053; 82150; 82550; 83605; 83690; 83735; 83880; 84484; 85025; 85379; 85610; 85730; 87040; 87045; 87046; 87493; 96360; 96374; 99284; 99291; G0328; 82274; J2060